=== PATIENT | male | born 1955 | race Caucasian/White ===

== ENCOUNTER 2021-06-16 09:42 | Outpatient (RCR) | payer MEDICARE, SELFPAY | END 2021-06-16 09:45 | disposition home or self-care (01) | LOC: PT 09:42 | DX: I25.10 Atherosclerotic heart disease of native coronary artery without angina pectoris (principal); Z95.1 Presence of aortocoronary bypass graft | CPT/HCPCS: 93798 ==

== ENCOUNTER 2023-06-28 09:00 | Outpatient (RCR) | payer MEDICARE, SELFPAY | END 2023-07-13 08:03 | disposition home or self-care (01) | LOC: PT 09:00 | PROVIDERS: Visit Provider Orthopaedic Surgery | DX: M25.512 Pain in left shoulder (principal); Z96.612 Presence of left artificial shoulder joint | CPT/HCPCS: 97010; 97014; 97110; 97140; 97163; 97164; 97530; G0283 ==

== ENCOUNTER 2025-02-18 17:54 | Emergency (ER) | payer SELFPAY ==
--- OUTSIDE RECORDS SUMMARY | 2025-01-03 14:05 | XMS_ITS | Encounter Summary ---
Author Organization Healthcare Address [address] [place] [address] Care Team Providers Care Quality Coordinator Name Role Phone Frank Seth MD Primary Care Provider [phone]- [phone] Encounter Details Date Type Department Care Team (Latest Contact Info) Description 01/03/2025 2:05 PM EST - 01/03/2025 11:59 PM EST Hospital Encounter Cardiac Imaging [address] [place] [address] Pacemaker Discharge Disposition: Home or Self Care Social History Tobacco Use Types Packs/Day Years Used Date Smoking Tobacco: Every Day Cigarettes 0.5 1 Started: 02/2024 Smokeless Tobacco: Never Alcohol Use Standard Drinks/Week Comments Never 0 (1 standard drink = 0.6 oz pur e alcohol) PHQ-2 Answer Date Recorded Patient Health Questionnaire-2 Score 0 11/27/2024 Hunger Vital Sign Answer Date Recorded Within the past 12 months, y ou worried that your food would run out before you got the money to buy more. Never true 03/29/19 25 Within the past 12 months, t he food you bought just didn't last and you didn't have money to get more. Never true 03/29/2024 PRAPARE - Transportation Answer Date Re corded In the past 12 months, has l ack of transportation kept you from medical appointments or from getting medications? No 03/02 In the past 12 months, has l ack of transportation kept you from meetings, work, or from getting things needed for daily living? No 03/29/2024 PHQ-9 Answer Date Recorded Patient Health Questionnaire-9 Score 0 11/27/2024 Housing Stability Vital Sign Answer Jt e Recorded In the last 12 months, was t here a time when you were not able to pay the mortgage or rent on time? No 03/29/2024 Number of Times Moved in the Last Year Not on fi le 03/29/2024 At any time in the past 12 m [facility], were you homeless or living in a penitentiary (including now)? No 03/29/2024 Utilities Answer Date Recorded In the past 12 months has [employer], [employer], [employer], or water [employer] threatened to shut off services in your home? No 03/29/2024 Sex and Gender Information Value Date Recorded Sex Assigned at Male 03/28/2024 6:50 PM EST Legal Sex Male 3:17 PM EST Gender Identity Not on file Sexual Orientation Not on file documented as of this encounter Medications at Time of Discharge aspirin 81 MG EC tablet Take 1 tablet by mouth daily. atorvastatin (Lipitor) 40 MG tablet Take 1 tablet (40 mg) by mouth every night. 30 tablet 2 03/31/2024 B-D 3CC LUER-JAMES SYR 23GX1 23G X 1 3 ML misc USE DIRECTED PER MD INSTRUCTION 12/27/2023 diclofenac (Voltaren) 75 MG EC tablet Take 1 tablet (75 mg) by mouth in the morning and 1 tablet (75 mg) before bedtime. 07/04/2023 donepezil (Aricept) 10 MG tablet Take 1 tablet (10 mg) by mouth nightly. 06/20/2023 Eliquis 5 MG tablet TAKE ONE (1) TABLET BY MOUTH TWO (2) TIMES A DAY. 180 tablet 3 05/15/2024 memantine (Namenda) 10 MG tablet Take 1 tablet (10 mg) by mouth in the morning and 1 tablet (10 mg) before bedtime. metFORMIN (Glucophage) 500 MG tablet Take 1 tablet (500 mg) by mouth in the morning and 1 tablet (500 mg) in the evening. Take with meals. 03/21/2024 metoprolol succinate XL (Toprol-XL) 25 MG 24 hr tablet Take 1 tablet by mouth daily. mirtazapine (Remeron) 15 MG tablet Take 1 tablet by mouth nightly. 09/19/2024 pantoprazole (Protonix) 40 MG EC tablet Take 1 tablet by mouth daily. 06/02/2024 sertraline (Zoloft) 100 MG tablet Take 1 tablet (100 mg) by mouth Daily. 03/21/2024 testosterone cypionate (Depo-Testostero ne) 200 MG/ML injection Inject 1 mL (200 mg) into the muscle every 14 (fourteen) days. 07/14/2023 traZODone (Desyrel) 50 MG tablet Take 2 tablets (100 mg) by mouth Daily. 06/06/2023 documented as of this encounter Plan of Treatment Upcoming Encounters Date Type Department Care Team (Late st Contact Info) Description 05/09/2025 1:00 PM EDT Consult [facility] [place] [facility] [address] [place] [id number] Cristiana Webster MD [address] [place] [phone] 11/26/2025 11:00 AM EDT Office Visit [facility] [place] [address] [place] [address] Giles Sullivan MD [address] [place] [address] documented as of this encounter Procedures Procedure Name Priority Date/Time Associated Diagnosis Comments CARDIAC DEVICE CHECK - REMOTE - PACEMAKER Routine 01/03/2025 2:33 PM EST Pacemaker documented in this encounter Results * CARDIAC DEVICE CHECK - REMOTE - PACEMAKER (01/03/2025 2:33 PM EST) Anatomical Region Laterality Modality Other Narrative 01/03/2025 3:25 PM EST [facility] Remote CIED Report Name: James Sagastume Date: 01/03/2025 : 1955 Age: 69 y.o. Viewing Cardiology Provider: James Moore APRN, DNP Reporting period: Reporting period is the last 91 days, with at least 30 days of remote monitoring. Interim reports, if any, reviewed and addressed previously; see remote alert entries for more details. Most recent report, dated 01/03/2025, analysis and summary as follows: Device: [employer] dual chamber pacemaker Permanent Programming Mode : DDDR LRL: 60 bpm MTR: 130 bpm Available measurements within normal limits. (See vendor report in Media for further details) Pacing Percentage: Atrial: 59 % Ventricular: 77 % Battery: Service time remainin years Presenting rhythm: Presenting rhythm is atrial paced with ventricular paced response with occasional ectopy. Evaluation: Demonstrates appropriate sensing: Yes Demonstrates pacing capture: Yes Arrhythmias: No new arrhythmia since last CIED evaluation. Summary: CIED functioning as expected, with given programming and data. See copy of vendor report in Media us Shagufta Menendez Oscar COFFEY CV IMPLANTABLE CARDIAC DEV ICE PROCEDURES Final Result documented in this encounter Visit Diagnoses Diagnosis Pacemaker Cardiac pacemaker in situ documented in this encounter Additional Health Concerns Assessment Noted Time PHQ-9 Depression Total Score: 0 11/28/19 11:33 AM EDT A fall risk assessment has been complete d for the patient 11/27/2024 11:33 AM EDT A Body Mass Index follow-up plan has been documented for the patient 11/27/2024 11:56 AM EDT documented as of this encounter Care Teams Quality Coordinator Relationship Specialty Start Date End Date Frank Seth MD [address] [place] [address] PCP - General 03/28/24 documented as of this encounter
--- OUTSIDE RECORDS SUMMARY | 2025-02-18 18:03 | XMS_ITS | Encounter Summary ---
Author Organization Healthcare Address [address] [place] [address] Care Team Providers Care Paper Stripper Name Role Phone Frank Seth MD Primary Care Provider [phone] Encounter Details Date Type Department Care Team (Latest Contact Info) Description 01/03/2025 Travel Social History Tobacco Use Types Packs/Day Years [...] any time in the past 12 m [facility], were you homeless or living in a usp (including now)? No 03/29/2024 Utilities Answer Date Recorded In the past 12 months has e electric, gas, oil, or water company threatened to shut off services in your home? No 03/29/2024 Sex and Gender Information Value Date Recorded Sex Assigned at Male 03/28/2024 6:50 PM EST Legal Sex Male 3:17 PM EST Gender Identity Not on file Sexual Orientation Not on file documented as of this encounter Plan of Treatment Upcoming Encounters Date Type Department Care Team (Late st Contact Info) Description 05/09/2025 1:00 PM EDT Consult [facility] [place] [facility] [address] [place] [phone] Cristiana Webster MD [address] [place] [address] 11/26/2025 11:00 AM EDT Office Visit [facility] [place] [address] [place] [address] Giles Sullivan MD [address] [place] [address] documented as of this encounter Visit Diagnoses Not on filedocumented in this encounter Additional Health Concerns Assessment Noted Time PHQ-9 Depression Total Score: 0 11/28/19 11:33 AM EDT A fall risk assessment has been complete d for the patient 11/27/2024 11:33 AM EDT A Body Mass Index follow-up plan has been documented for the patient 11/27/2024 11:56 AM EDT documented as of this encounter Care Teams Paper Stripper Relationship Specialty Start Date End Date Frank Seth MD [address] [place] [address] PCP - General 03/28/24 documented as of this encounter
--- OUTSIDE RECORDS SUMMARY | 2025-02-18 18:04 | XMS_ITS | Clinical Summary ---
Author Organization [employer] ([place], [place], [place], [place], [place]) Address [address] [place] [address] Care Team Providers Care Telecommunications Clerk Name Role Phone Frank Seth MD Primary Care Provider [phone] Allergies Active Allergy Reactions Criticality Noted Date Comments Latex 06/02/2022 Penicillins Hives,Rash High 12/01/2012 Medications memantine (NAMENDA TITRATION PACK) tablet pack Take by mouth. 03/17/19 23 Active diclofenac-mis oprostoL (ARTHROTEC 75) 75-200 mg-mcg per tablet Take 1 tablet by mouth 2 (two) times daily. Active rivaroxaban (Xarelto) 20 mg tablet Take 1 tablet (20 mg total) by mouth daily. 05/10/19 22 Active pantoprazole (Protonix) 20 MG tablet Take 2 tablets (40 mg total) by mouth daily. 05/10/19 22 Active testosterone (ANDROGEL) 20.25 mg/1.25 gram (1.62 %) gel pump Inject 200 mg intramuscularly every 14 (fourteen) days. 04/30/19 22 Active aspirin 81 MG EC tablet 1 Tab, Oral, EC Tab, Daily, # 30 Tab, 0 Refill(s), Pharmacy: [id number], 193.04, cm, 05/07/21 4:15:00 EST, CLINICALHEIGHT, 144.55, kg, 04/28/21 19:42:00 EST, CLINICALWEIGHT 05/10/19 Active carvediloL (Coreg) 12.5 MG tablet Take 0.5 tablets (6.25 mg total) by mouth 2 (two) times daily. 05/10/19 Active multivitamin with minerals tablet Take 1 tablet by mouth daily. Active atorvastatin (LIPITOR) 10 MG tablet Take 2 tablets (20 mg total) by mouth daily. 05/10/19 Active sertraline (ZOLOFT) 50 MG tablet Take 1 tablet (50 mg total) by mouth daily. 06/20/19 Active donepeziL (ARICEPT) 10 MG tablet Take 1 tablet (10 mg total) by mouth daily. 06/20/19 Active diclofenac (VOLTAREN) 75 MG EC tablet Take 1 tablet (75 mg total) by mouth 2 (two) times daily. 07/04/19 Active testosterone cypionate (DEPOTESTOTERO NE CYPIONATE) 200 mg/mL injection Inject 1 mL (200 mg total) intramuscularly once every 2 weeks. 07/14/19 Active traZODone (DESYREL) 50 MG tablet Take 2 tablets (100 mg total) by mouth daily. 06/06/19 Active Social History Tobacco Use Types Packs/Day Years Used Date Smoking Tobacco: Never Assessed Food Insecurity Answer Date Recorded Food run out past 12 months Not on file 02/28 Food did not last past 12 months Not on file 03/18/2023 Employment Answer Date Recorded Help finding and keeping a job Not on file 0 03/18/2023 Family and Community Support Answer Jt e Recorded Help with Day to Day Activities Not on file 03/18/2023 Feeling Lonely or Isolated Not on file 03/18 Educational Attainment Answer Date Chaka rded Speak language other than Macedonian at home Not on file 03/18/2023 Want help with school or training Not on file 03/18/2023 Substance Use Answer Date Recorded Used prescription meds for non-medical reasons N ot on file 03/18/2023 Used illegal drugs past 12 months Not on file 03/18/2023 Sex and Gender Information Value Date Recorded Sex Assigned at Not on file Legal Sex Male 1:23 PM CDT Gender Identity Not on file Sexual Orientation Not on file Last Filed Vital Signs Vital Sign Reading Time Taken Comments Blood Pressure 136/83 07/27/2023 2:35 PM EDT Pulse 69 07/27/2023 2:35 PM EDT Temperature 36.6 C (97.9 F) 03/18/2022 1:47 PM EST Respiratory Rate 18 07/27/2023 2:35 PM EDT Oxygen Saturation 97% 07/27/2023 2:35 PM EDT Inhaled Oxygen Concentration - - Weight 137.9 kg (304 lb) 07/27/2023 2:35 PM EDT Height 193 cm (6' 4 ) 07/27/2023 2:35 PM EDT Body Mass Index 37 07/27/2023 2:35 PM EDT Plan of Treatment Health Maintenance Due Date Last Done Comments Medicare Initial AWV G0438 CT Colonography 1955 Colonoscopy 1955 Colorectal Cancer Screening 1955 FOBT/FIT 1957 Fit-DNA (Cologuard) 1955 Sigmoidoscopy 1955 Depression Screening (12+) 1969 Tobacco Cessation Counseling and Screening (12+) 1969 Hepatitis C Screening 07/07/1975 Respiratory Syncytial Virus (RSV) Adult or (1 - Risk 60-74 years 1-dose series) 2017 DTAP/TDAP/TD VACCINES (2 - T d or Tdap) 11/30/2021 12/01/2011 Falls Risk Screening 02/29/2024 COVID-19 VACCINE (6 - 2024-2 6 season) 2024 11/10/2021, 06/26/2021, 12/04/2020, Additional history exists Influenza Vaccine (#1) 2024 11/23/2011 Shingles Vaccine (Zoster) Completed 11/04/2020, 09/2020 Pneumococcal 50+ years Completed 11/19/2021, 2011 Insurance [facility] Care Teams Telecommunications Clerk Relationship Specialty Start Date End Date Frank Seth MD [address] [place] [address] Dr Bethea [address] [place] [phone] PCP - General Family Medicine 06/02/22
--- OUTSIDE RECORDS SUMMARY | 2025-02-18 18:04 | XMS_ITS | Encounter Summary ---
Author Organization [facility] Address [address] [place] [address] Phone Care Team Providers Care Hrbp Name Role Phone Frank Seth MD Primary Care Provider [phone]- [phone] Encounter Details Date Type Department Care Team (Late st Contact Info) Description 02/08/2024 [facility] [address] [place] [address] Micah Hobson MD [address] [place] [address] Social History Tobacco Use Types Packs/Day Years Used Date Smoking Tobacco: Former Cigarettes 0 Q uit: 1980 Sex and Gender Information Value Date Recorded Sex Assigned at Not on file Legal Sex Male 10:00 AM EDT Gender Identity Not on file Sexual Orientation Not on file documented as of this encounter Functional Status * Are you deaf or do you have serious difficulty hearing? Answer Date of Assessment Author No 11/01/2023 1:55 PM EDT Gary Okeefe, Registered Nurse * Are you blind or do you have serious difficulty seeing, even when wearing glasses? Answer Date of Assessment Author No 11/01/2023 1:55 PM TALITAT Gary Okeefe, Registered Nurse * Do you have serious difficulty walking or climbing stairs? (5 years old or older) Answer Date of Assessment Author No 11/01/2023 1:55 PM Gary Silva, Registered Nurse * Do you have difficulty dressing or bathing? (5 years old or older) Answer Date of Assessment Author No 11/01/2023 1:55 PM EDT Gary Okeefe, Registered Nurse * Because of a physical, mental, or emotional condition, do you have difficulty doing errands alone such as visiting a doctor???s office or shopping? (15 years old or older) Answer Date of Assessment Author No 11/01/2023 1:55 PM EDT Gary Okeefe, Registered Nurse documented as of this encounter Mental Status * Because of a physical, mental, or emotional condition, do you have serious difficulty concentrating, remembering, or making decisions? (5 years old or older) Answer Entry Date Author No 11/01/2023 1:55 PM EDT Gary Okeefe, Registered Nurse documented in this encounter Plan of Treatment Upcoming Encounters Date Type Department Care Team (Late st Contact Info) Description 02/19/2025 8:00 PM [facility] Hospital Encounter [facility] [address] [place] [address] Beverley Quintana MD [address] [place] [address] documented as of this encounter Visit Diagnoses Not on filedocumented in this encounter Care Teams Hrbp Relationship Specialty Start Date End Date Frank Seth MD PCP - General Family Medicine 12/25/18 documented as of this encounter
--- OUTSIDE RECORDS SUMMARY | 2025-02-18 18:04 | XMS_ITS | Clinical Summary ---
Author Organization [facility] Address [address], [address] [place] [address] Care Team Providers Care Surgical Technician Name Role Phone Frank Seth MD Primary Care Provider Sumit kaur Allergies Active Allergy Reactions Criticality Noted Date Comments Penicillins Rash Low 12/01/2012 Medications diclofenac (VOLTAREN) 75 MG EC tablet daily 09/29/2018 Active Multiple Vitamins-Mineral s (THERAPEUTIC MULTIVITAMIN-MIN ERALS) tablet Take 1 tablet by mouth daily Active aspirin 325 MG EC tablet Take 1 tablet by mouth daily 30 tablet 04/24/2019 Active Active Problems Problem Noted Date Diagnosed Date H/O total ankle replacement, 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, 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 Pain in joint, pelvic region and thigh 3 Immunizations Immunization Administration Dates Next Due Influenza Virus Vaccine 12/14/2018,11/28/2012 Pneumococcal Conjugate 7-valent (Prevnar7) 11/28 Social History Tobacco Use Types Packs/Day Years Used Date Smoking Tobacco: Former Cigarettes 2 10 Smokeless Tobacco: Never Tobacco Cessation:Counseling Given: No Alcohol Use Standard Drinks/Week Comments No 0 (1 standard drink = 0.6 oz pur e alcohol) Sex and Gender Information Value Date Recorded Sex Assigned at Not on file Legal Sex Male 4:24 AM EST Gender Identity Not on file Sexual Orientation Not on file Last Filed Vital Signs Vital Sign Reading Time Taken Comments Blood Pressure 138/88 04/24/2019 1:32 PM EST Pulse 80 04/24/2019 1:32 PM EST Temperature 36.4 C (97.6 F) 04/24/2019 1:32 PM EST Respiratory Rate 16 04/24/2019 1:32 PM EST Oxygen Saturation 96% 04/24/2019 1:32 PM EST Inhaled Oxygen Concentration - - Weight 135.6 kg (299 lb) 11/06/2019 10:51 AM EDT Height 190.5 cm (6' 3 ) 11/06/2019 10:51 AM EDT Body Mass Index 37.37 11/06/2019 10:51 AM EDT Plan of Treatment Not on file Medical Devices Implanted Type Area Binder And Wrapper Packer Device Identifier Shelf Expiration Date Model / Serial / Lot Graft Amnio Actishield 4x8cm Implanted:Qty: 1 on 04/23/2019 by Chuck Verma MD at [facility] Bone/Gra ft/Tissu e/Human/ Synth Right: [facility] [employer] 09/08/2023 [id number] / / [id number] Impl In Bone Talar Stem 10mm Lg Implanted:Qty: 1 on 04/23/2019 by Chuck Verma MD at [facility] Leg/Ankl e/Foot/T oe Right: Ankle [employer] 09/26/[id number] / / [id number] Impl Ankle Base Stem Tib 18mm Implanted:Qty: 1 on 04/23/2019 by Chuck Verma MD at [facility] Leg/Ankl e/Foot/T oe Right: Ankle [employer] 01/20/[id number] / / [id number] Impl Ankle Stem Tib Mid 16mm Implanted:Qty: 1 on 04/23/2019 by Chuck Verma MD at [facility] Leg/Ankl e/Foot/T oe Right: Ankle [employer] 02/23/[id number] / / [id number] Impl Ankle Stem Tib Top Implanted:Qty: 1 on 04/23/2019 by Chuck Verma MD at [facility] Leg/Ankl e/Foot/T oe Right: Ankle [employer] 02/25/[id number] / / [id number] Inbone Tibial Tray, Size:5 Side: Right, Implant Material: [id number], Cpti Implanted:Qty: 1 on 04/23/2019 by Chuck Verma MD at [facility] Leg/Ankl e/Foot/T oe Right: Ankle [employer] 05/28/2021 [id number] / / [id number] Impl Ankle Talar Dome Sz4 Implanted:Qty: 1 on 04/23/2019 by Chuck Verma MD at [facility] Leg/Ankl e/Foot/T oe Right: Ankle [employer]-PMM 05/14/2026 [id number] / / [id number] Impl Ankle Poly Sz 4+ 12mm Sulcus Implanted:Qty: 1 on 04/23/2019 by Chuck Verma MD at [facility] Leg/Ankl e/Foot/T oe Right: Ankle [employer]-PMM 09/27/2021 [id number] / / [id number] Explanted Type Area Binder And Wrapper Packer Device Identifier Shelf Expiration Date Model / Serial / Lot Impl Kwire 1.4 Explanted:Qty: 2 on 04/23/2019 by Chuck Verma MD at [facility] Screw/Pl ate/Nail /Jayy Right: Ankle [employer]-PMM [id number] / / Insurance MEDICARE Advance Directives * Full Code (Latest Code Status on File) Date Activated Date Inactivated Comments 04/23/2019 1:03 PM 04/24/2019 5:43 PM * Full Code Date Activated Date Inactivated Comments 04/23/2019 5:59 AM 04/23/2019 12:40 PM * Full Code Date Activated Date Inactivated Comments 12/12/2012 11:33 AM 12/13/2012 1:06 PM Care Teams Surgical Technician Relationship Specialty Start Date End Date Frank Seth MD PCP - General Family Medicine 03/29/19
--- OUTSIDE RECORDS SUMMARY | 2025-02-18 18:04 | XMS_ITS | Encounter Summary ---
Author Organization [facility] Address [address] [address] Care Team Providers Care [employer] Name Role Phone Frank Seth MD Primary Care Provider [phone] Reason for Referral * Consultation (Routine) - Authorized Specialty Diagnoses / Procedures Referred By Lane coffman Referred To Contact Neurology Diagnoses Memory impairment Frank Seth MD [address] [place] [address] Phone: tel: fax: Referral ID Status Reason Start Date Expiration Date Visits Requested Visits Authorized [id number] Authorized Specialty Services Required 09/19/2024 03/21/2026 1 1 Encounter Details Date Type Department Care Team (Late st Contact Info) Description 09/19/2024 Community [facility] [address] [place] [address] Frank Seth MD [address] [place] [phone] Memory impairment (Primary Dx) Social History Tobacco Use Types Packs/Day Years Used Date Smoking Tobacco: Every Day Cigarettes 0.5 1 Started: 02/2024 Smokeless Tobacco: Never Alcohol Use Standard Drinks/Week Comments Never 0 (1 standard drink = 0.6 oz pur e alcohol) Hunger Vital Sign Answer Date Recorded Within [...] things needed for daily living? No 03/29/2024 Housing Stability Vital Sign Answer Jt e Recorded In the last 12 months, was t here a time when you were not able to pay the mortgage or rent on time? No 03/29/2024 Number of Times Moved in the Last Year Not on fi le 03/29/2024 At any time in the past 12 m [facility], were you homeless or living in a fdc (including now)? No 03/29/2024 Utilities Answer Date Recorded In the past 12 months has th e electric, gas, oil, or water company [...] Info) Description 05/09/2025 1:00 PM EDT Consult [facility] [place] [facility] [address] [place] [id number] Cristiana Webster MD [address] [facility] [address] [phone] 11/26/2025 11:00 AM EDT Office Visit [facility] [place] [address] [facility] [address] Giles Sullivan MD [address] [place] [phone] Scheduled Referrals Name Type Priority Associated Diagnoses Order Schedule Ambulatory referral to Neurology Outpatient Referral Routine Memory impairment Ordered: 09/19/2024 documented as of this encounter Visit Diagnoses Diagnosis Memory impairment- Primary Memory loss documented in this encounter Additional Health Concerns Assessment Noted Time A fall risk assessment has been complete d for the patient 07/10/2024 1:33 PM EDT A Body Mass Index follow-up plan has been documented for the patient 07/10/2024 2:04 PM EDT documented as of this encounter Care Teams [employer] Relationship Specialty Start Date End Date Frank Seth MD [address] [place] [address] PCP - General 03/28/24 documented as of this encounter
--- OUTSIDE RECORDS SUMMARY | 2025-02-18 18:04 | XMS_ITS | Encounter Summary ---
Author Organization [facility] Address [address] [place] [address] Phone Care Team Providers Care Prescription Benefit Specialist Name Role Phone Frank Seth MD Primary Care Provider [phone]- [phone] Encounter Details Date Type Department Care Team (Late st Contact Info) Description 11/03/2023 SCAN [facility] [address] [place] [address] Micah Hobson MD [address] [place] [address] Social History Tobacco Use Types [...] st Contact Info) Description 02/19/2025 8:00 PM [facility] Hospital Encounter [facility] [address] [place] [address] Beverley Quintana MD [address] [address] documented as of this encounter Visit Diagnoses Not on filedocumented in this encounter Care Teams Prescription Benefit Specialist Relationship Specialty Start Date End Date Frank Seth MD PCP - General Family Medicine 12/25/18 documented as of this encounter
--- OUTSIDE RECORDS SUMMARY | 2025-02-18 18:04 | XMS_ITS | Encounter Summary ---
Author Organization [facility] Address [facility] [place] [address] Phone Care Team Providers Care Process Lead Name Role Phone Frank Seth MD Primary Care Provider [phone]- [phone] Reason for Visit * Reason Onset Date Comments Pre-questionnaire Sleep Study 10/30/2024 Encounter Details Date Type Department Care Team (Late st Contact Info) Description 10/30/2024 Telephone [facility] [address] [place] [phone] Beverley Quintana MD [address] [address] Social History Tobacco Use Types Packs/Day Years Used Date Smoking Tobacco: Former Cigarettes 0 Q uit: 1982 Alcohol Use Standard Drinks/Week Comments Not Currently 0 (1 standard drink = 0.6 oz pur e alcohol) Sex and Gender Information Value Date Recorded Sex Assigned at Not on file Legal Sex Male 10:00 AM EDT Gender Identity Not on file Sexual Orientation Not on file documented as of this encounter Functional Status * Are you deaf or do you have serious difficulty hearing? Answer Date of Assessment Author No 06/18/2024 1:09 PM [place], Registered Nurse * Are you blind or do you have serious difficulty seeing, even when wearing glasses? Answer Date of Assessment Author No 06/18/2024 1:09 PM [place] Locke, Registered Nurse * Do you have serious difficulty walking or climbing stairs? (5 years old or older) Answer Date of Assessment Author No 06/18/2024 1:09 PM [place], Registered Nurse * Do you have difficulty dressing or bathing? (5 years old or older) Answer Date of Assessment Author No 06/18/2024 1:09 PM [place] Locke, Registered Nurse * Because of a physical, mental, or emotional condition, do you have difficulty doing errands alone such as visiting a doctor???s office or shopping? (15 years old or older) Answer Date of Assessment Author No 06/18/2024 1:09 PM [place] Locke, Registered Nurse documented as of this encounter Mental Status * Because of a physical, mental, or emotional condition, do you have serious difficulty concentrating, remembering, or making decisions? 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 Departure Time: Duration: ____ hrs. Language: [] ASL (Rwandan Sign Language) Interventional Nurse Type: [] Family [] *Service [] Video [] Phone [] In-person [x] N/A Patient has impaired: [] Mobility / Dexterity: [] Cane [] Crutches [] Walker [] Wheelchair [] Motorized Scooter [x] N/A [] Ability to communicate: [] [facility] Other: Caregiver staying: [] Bedridden [] Blindness [] Deafness [] Non-Verbal [] Altered Mental Status: Psychosis/Schizophrenia/Dementia/Alzheimer's [] Trach [] Catheter [] Other: [] Family Member [] Nurse/Facility Staff Name: Number: [x] N/A Non-caregiver staying: [] Family Member [] Nurse/Facility Staff Name: Number: [x] N/A On Oxygen: LPM [] 20/09 [] Nocturnal Only [] PRN [x] N/A Implanted Device: [x] Inspire (North Only) Sun - Yajaira. [] Remede Rep: Number: [] Pacemaker/IVCD [] Loop/Cardiac Recorder [] Insulin Pump [] Pain Pump [] ELECTRICIAN RESEARCH Shunt (located in head & neck) Other: [x] N/A documented in this encounter Plan of Treatment Upcoming Encounters Date Type Department Care Team (Late st Contact Info) Description 02/19/2025 8:00 PM [facility] Hospital Encounter [facility] [address] [place] [phone] Beverley Quintana MD [address] [place] [address] documented as of this encounter Visit Diagnoses Not on filedocumented in this encounter Care Teams Process Lead Relationship Specialty Start Date End Date Frank Seth MD PCP - General Family Medicine 12/25/18 documented as of this encounter
--- OUTSIDE RECORDS SUMMARY | 2025-02-18 18:04 | XMS_ITS | Clinical Summary ---
Author Organization [facility] Address [address] [place] [address] Care Team Providers Care Guide Changer Name Role Phone Frank Seth MD Primary Care Provider Allergies Active Allergy Reactions Criticality Noted Date Comments Latex Rash High 06/02/2022 Penicillins Hives,Rash High 12/01/2012 Medications testosterone cypionate (Depo-Testoster one) 200 MG/ML injection Inject 1 mL (200 mg) into the muscle every 14 (fourteen) days. 4 Active metFORMIN (Glucophage) 500 MG tablet Take 1 tablet (500 mg) by mouth in the morning and 1 tablet (500 mg) in the evening. Take with meals. 5 Active sertraline (Zoloft) 100 MG tablet Take 1 tablet (100 mg) by mouth Daily. 5 Active traZODone (Desyrel) 50 MG tablet Take 2 tablets (100 mg) by mouth Daily. 4 Active donepezil (Aricept) 10 MG tablet Take 1 tablet (10 mg) by mouth nightly. 4 Active diclofenac (Voltaren) 75 MG EC tablet Take 1 tablet (75 mg) by mouth in the morning and 1 tablet (75 mg) before bedtime. 4 Active memantine (Namenda) 10 MG tablet Take 1 tablet (10 mg) by mouth in the morning and 1 tablet (10 mg) before bedtime. Active B-D 3CC LUER-JAMES SYR 23GX1 23G X 1 3 ML misc USE DIRECTED PER MD INSTRUCTION 4 Active atorvastatin (Lipitor) 40 MG tablet Take 1 tablet (40 mg) by mouth every night. 30 tablet 2 5 Active Eliquis 5 MG tablet TAKE ONE (1) TABLET BY MOUTH TWO (2) TIMES A DAY. 180 tablet 3 5 Active pantoprazole (Protonix) 40 MG EC tablet Take 1 tablet by mouth daily. 5 Active aspirin 81 MG EC tablet Take 1 tablet by mouth daily. Active metoprolol succinate XL (Toprol-XL) 25 MG 24 hr tablet Take 1 tablet by mouth daily. Active mirtazapine (Remeron) 15 MG tablet Take 1 tablet by mouth nightly. 5 Active Active Problems Problem Noted Date Diagnosed Date Pacemaker 07/10/2024 Unstable angina pectoris 06/26/2024 Encounter for monitoring sotalol therapy 025 Atrial flutter, unspecified type 05/11/2024 Atrial flutter 05/07/2024 Bradycardia 03/28/2024 Atrial fibrillation 03/21/2024 Hypotestosteronism 03/21/2024 Sensorineural hearing loss 07/12/2023 Localized osteoarthritis of left shoulder 2023 Prediabetes 10/25/2022 Memory impairment 01/25/2022 Acid reflux 12/25/2021 Coronary arteriosclerosis 05/14/2021 Bladder neck contracture 05/01/2021 Athscl heart disease of ayaan ve coronary artery w/o ang pctrs 05/01/2021 History of coronary artery bypass surgery 2021 Presence of prosthetic heart valve 05/01/2021 Rheumatic mitral insufficiency 05/01/2021 Acute pain of right shoulder 03/26/2021 Strain of right shoulder 03/26/2021 Obstructive sleep apnea syndrome 02/28/2021 Decreased testosterone level 06/05/2020 Sleep apnea 11/22/2019 H/O total ankle replacement, 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, right 04/23/2019 Degeneration of lumbosacral intervertebral disc 04/01/2016 Diabetic polyneuropathy 04/01/2016 Overview (06/26/2024): Removal Reason: resolved Essential hypertension 04/01/2016 Overview (06/26/2024): Removal Reason: resolved Gastroesophageal reflux disease without esophagi tis 04/01/2016 Hyperlipidemia 04/01/2016 Overview (06/26/2024): Removal Reason: resolved Obesity 04/01/2016 Osteoarthritis 04/01/2016 Type 2 diabetes mellitus 04/01/2016 Overview (06/26/2024): Removal Reason: resolved Failed total hip arthroplasty 12/01/2012 Pain in joint, pelvic region and thigh 3 Encounters Date Type Department Care Team Description 01/03/2025 2:05 PM EST - 01/03/2025 11:59 PM EST Hospital Encounter Cardiac Imaging [address] [place] [address] Pacemaker Discharge Disposition: Home or Self Care 01/03/2025 Travel 11/27/2024 11:20 AM EDT Office Visit [facility] [address] [place] [address] Giles Sullivan MD Paroxysmal atrial fibrillation (CMS/HCC) (Primary Dx); Sick sinus syndrome (CMS/HCC) 11/27/2024 Travel from Last 3 Months Immunizations Immunization Administration Dates Next Due Influenza, High-dose, Split Virus, Trivalent, Injectable, preservative free 11/09/2023 Influenza, Split (incl. brittanie fied surface antigen) 11/23/2011 Influenza, Unspecified 11/09/2023,2018,11/28/2012,11/22,11/24/2010,11/27/2009,12/06/2008 ,01/17/2008 Influenza, high-dose, quadrivalent 12/23/2022, Influenza, injectable, quadrivalent 11/22/2019 Influenza, injectable, quadr ivalent, preservative free 11/19/2021 Novel [id number], all formulations 06/04/2009 Pneumococcal 20-izaiah Conj Vaccine 11/09/2023,0903/2021 Pneumococcal Conjugate PCV 13 12/04/2014 Pneumococcal Conjugate PCV 7 11/29/2011 Pneumococcal Polysaccharide PPV23 12/01/2011 Tdap 10/22/2016,12/01/2011 Zoster, Recombinant 11/04/2020,09/04/2020 Zoster, live 12/04/2010 Social History Tobacco Use Types Packs/Day Years Used Date Smoking Tobacco: Every Day Cigarettes 0.5 1 Started: 02/2024 Smokeless Tobacco: Never Tobacco Cessation:Ready to Q uit: Not Asked; Counseling Given: Not Answered Alcohol Use Standard Drinks/Week Comments Never 0 [...] any time in the past 12 m [facility], were you homeless or living in a residential (including now)? No 03/29/2024 Utilities Answer Date [...] Sign Reading Time Taken Comments Blood Pressure 128/85 11/27/2024 11:29 AM EDT Pulse 60 11/27/2024 11:29 AM EDT Temperature 36.4 C (97.6 F) 05/13/2024 7:07 AM EDT Respiratory Rate 19 05/12/2024 7:14 PM EDT Oxygen Saturation 95% 11/27/2024 11:29 AM EDT Inhaled Oxygen Concentration - - Weight 129 kg (283 lb 11.7 oz) 11/27/2024 11:29 AM EDT Height 193 cm (6' 4 ) 11/27/2024 11:29 AM EDT Body Mass Index 34.54 11/27/2024 11:29 AM EDT Plan of Treatment Upcoming Encounters Date Type Department Care Team (Late st Contact Info) Description 05/09/2025 1:00 PM EDT Consult [facility] [address] [place] [phone] Cristiana Webster MD [address] [place] [phone] 11/26/2025 11:00 AM EDT Office Visit [facility] [address] [place] [address] Giles Sullivan MD [address] [place] [address] Health Maintenance Due Date Last Done Comments [facility]-Diabetes: Hemoglobin A1C 1955 [facility]-Hepatitis C Screening 1955 [facility]-Medicare Annual Wellness (AWV) 1955 [facility]-/Child/Adol SDOH Screenings 1955 Diabetes: Dental Exam 07/07/1967 [facility]- SDOH Screenings 07/07/1975 [facility]-Adult SDOH Screenings 07/07/1975 CT Colonography 2002 Colonoscopy 2002 FIT-DNA 2002 FIT 2002 FOBT 2002 Sigmoidoscopy 2002 [facility]-Colorectal Cancer Screening 2002 [facility]-RSV Vaccine: 60+ Years or (1 - Risk 50-74 years 1-dose series) 07/07/2007 [facility]-Abdominal Aortic Aneurysm (AAA) Screening 2022 [id number] Vaccine ( season) 2024 12/23/2022, 11/10/2021, 06/26/2021, Additional history exists [facility]-Depression Screening 11/27/2025 11/27/2024, 10/31 [facility]-DTaP,Tdap,and Td Vaccines (3 - Td or Tdap) 10/22/2026 10/22/2016, 12/01/2011 [facility]-Zoster Vaccines Completed 11/04/2020, 09/04/2020, 12/04/2010 [facility]-Pneumococcal Vaccine: 50+ Years Completed 11/09/2023, 11/19/2021, 12/04/2014, Additional history exists [facility]-Obesity Intervention Completed 025, 07/10/2024, 05/11/2024, Additional history exists [facility]-Influenza Vaccine Completed 01/01/2025 , 11/09/2023, 11/09/2023, Additional history exists HPV Vaccines (No Doses Required) Completed [facility]-HIB Vaccines Aged Out No longer e ligible based on patient's age to complete this topic [facility]-Hepatitis A Vaccines Aged Out No longer eligible based on patient's age to complete this topic [facility]-IPV Vaccines Aged Out No longer e ligible based on patient's age to complete this topic [facility]-Rotavirus Vaccines Aged Out No lo nger eligible based on patient's age to complete this topic Medical Devices Implanted Type Area 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 [employer] Cardiac Rhythm Management-[id number] 01/26/2026 L131 / [id number] / [id number] Envelope Tyrx Icd Large - [id number] Implanted:Qty: 1 on 03/30/2024 by Giles Sullivan MD at [facility] Medtronic Inc-[id number] 12/14/2024 [id number] / [id number] Procedures Procedure Name Priority Date/Time Associated Diagnosis Comments CARDIAC DEVICE CHECK - REMOTE - PACEMAKER Routine 01/03/2025 2:33 PM EST Pacemaker ECG ADULT Routine 11/27/2024 11:38 AM EDT Paroxysmal atrial fibrillation (CMS/HCC) from Last 3 Months Results * CARDIAC DEVICE CHECK - REMOTE - PACEMAKER (01/03/2025 2:33 PM EST) Anatomical Region Laterality Modality Other Narrative 01/03/2025 3:25 PM EST [facility] Remote CIED [...] 01/03/2025, analysis and summary as follows: Device: [employer] dual chamber pacemaker Permanent Programming Mode [...] of vendor report in Media us Shagufta Moore APRN CV IMPLANTABLE CARDIAC DEV ICE PROCEDURES Final Result * ECG Adult (Now - Performed in your clinic) (11/27/2024 11:38 AM EDT) EKG DIAGNOSIS CLASS Abnormal MUSE ECG Ventricular Rate 60 BPM MUSE ECG Atrial Rate 60 BPM MUSE ECG [place] Interval 352 ms MUSE ECG QRSD Interval 142 ms MUSE ECG QT Interval 418 ms MUSE ECG QTC Interval 418 ms MUSE ECG P [place] 81 degrees MUSE ECG R [place] -14 degrees MUSE ECG T Wave [place] -50 degrees MUSE ECG Diagnosis Sinus rhythm with 1st degree AV block with frequent atrial paced complexes MUSE ECG Diagnosis Right bundle branch block MUSE ECG Diagnosis Minimal voltage criteria for LVH, may be normal variant ( R in aVL ) MUSE ECG Diagnosis Possible Inferior infarct , age undetermined MUSE ECG Diagnosis T wave abnormality, consider lateral ischemia MUSE ECG Diagnosis Abnormal ECG MUSE ECG Diagnosis MUSE ECG Diagnosis Confirmed by Emilia Wright ([id number]) on 11/27/2024 2:07:45 PM MUSE ECG 11/27/2024 11:3 8 AM EDT 11/27/2024 2:07 PM EDT us Giles Sullivan MD ECG ORDERABLES Final Result Performing Organization Address City/State/[facility] Co de Phone Number MUSE ECG from Last 3 Months Insurance [employer] MEDIC[employer] Advance Directives * Full Code (Latest Code Status on File) Date Activated Date Inactivated Comments 05/11/2024 11:25 AM 05/13/2024 3:56 PM * Full Code Date Activated Date Inactivated Comments 03/30/2024 2:06 PM 03/31/2024 4:46 PM Question Answer Comments Patient has decision-making capacity? Yes * Full Code Date Activated Date Inactivated Comments 03/28/2024 8:38 PM 03/30/2024 2:06 PM Question Answer Comments Patient has decision-making capacity? Yes Care Teams Guide Changer Relationship Specialty Start Date End Date Frank Seth MD [address] [place] [address] PCP - General 03/28/24
--- OUTSIDE RECORDS SUMMARY | 2025-02-18 18:04 | XMS_ITS | Continuity of Care Document ---
Author Organization [facility] Former[facility] Address [address] [place] [address] [place] [address] Assessment No assessment recorded. Plan of Treatment Reminders Order Date Submit Date Provider Last Modified By Organization Details Last Modified Time Details Appointments Establish ed Patient 20 2025 11:30A M Frank Seth MD Not available Not available Not available Follow Up 20 2025 11:00A M Alayna Meneses APRN Not available Not available Not available Establish ed Patient 20 2025 10:50A M Frank Seth MD Not available Not available Not available Lab HbA1c (hemoglob in A1c), blood 2024 025 [facility], [address] [place] [address], [id number], 01/11/2025 11:14:15 CMP, serum or plasma 2024 025 [facility], [address] [place] [address], [address], 01/11/2025 11:14:13 microalbu min/creat inine, mass ratio, urine 2024 025 [facility], [address] [place] [address] [place], [address], 01/10/2025 11:58:56 unlisted lab - toxassure flex 22, urine [address], [address], 01/16/2025 20:10:50 lipid panel, serum 2024 [facility], [address] [place] [address], [address], 01/11/2025 11:14:14 CBC w/ auto diff 2024 [facility], [address] [place] [address], [address], 01/11/2025 11:14:12 TSH + free T4, serum 2024 [facility], [address] [place] [address], [address], 01/11/2025 11:14:11 testoster one, total, serum 2024 [facility], [address] [place] [address], [address], 01/11/2025 11:14:16 PSA, total, serum or plasma 2024 [facility], [address] [place] [address], [address], 01/11/2025 11:14:17 Referral None recorded. Procedures None recorded. Surgeries None recorded. Imaging None recorded. Medication Orders testoster one cypionate 200 mg/mL intramusc ular oil 2024 [facility], [address] [place] [address] [place], [address], 01/10/2025 11:38:06 Patient TargetsNo targets recorded. Patient Instructions Encounter Date Encounter Id Patient Instructions Last Modified By Organization Details Last Modified Time 01/10/2025 [id number] diabetic foot exam* mela Not available 01/10/2025 11:48:50 diabetic eye exam* APRIL Not available 02/04/2025 16:31:27 learning about healthy weight Not available 01/10/2025 11:38:01 body mass index: care instructions Not available 01/10/2025 11:38:01 Reason for Referral None Reported. Results Created Date Observation Date Name Description Value Unit Range Abnormal Flag Note LastModifiedBy Organization Detail LastModifiedTime 01/11/2001/11/2025 TSH+F REE T4 TSH 2.650 uIU/m L 0.450- 4.500 normal Not Available [facility] ([facility] [place] [facility]) [address] [facility], [place], [address], 01/11/2025 11:14:11 01/11/20 25 01/11/2025 TSH+F REE T4 T4,free(dire ct) 1.29 NG/dL 0.82-1 .77 normal Not Available [facility] ([facility]) [address] [place], [address], 01/11/2025 11:14:11 01/11/20 25 01/11/2025 CBC WITH DIFFE RENTI AL/PL ATELE T WBC 4.4 x10e3 /uL 3.4-10 .8 normal Not Available [facility] ([facility]) [address] [place], [address], 01/11/2025 11:14:12 01/11/20 25 01/11/2025 CBC WITH DIFFE RENTI AL/PL ATELE T RBC 4.29 x10e6 /uL 4.14-5 .80 normal Not Available [facility] ([facility]) [address] [place], [address], 01/11/2025 11:14:12 01/11/20 25 01/11/2025 CBC WITH DIFFE RENTI AL/PL ATELE T hemoglobin 13.2 g/dL 13.0-1 7.7 normal Not Available [facility] ([facility]) [address] [place], [address], 01/11/2025 11:14:12 01/11/20 25 01/11/2025 CBC WITH DIFFE RENTI AL/PL ATELE T hematocrit 40.2 % 37.5-5 1.0 normal Not Available [facility] ([facility]) [address] [place], [address], 01/11/2025 11:14:12 01/11/20 25 01/11/2025 CBC WITH DIFFE RENTI AL/PL ATELE T MCV 94 fL 79-97 normal Not Available [facility] ([facility]) [address] [facility], [place], [address], 01/11/2025 11:14:12 01/11/20 25 01/11/2025 CBC WITH DIFFE RENTI AL/PL ATELE T MCH 30.8 pg 26.6-3 3.0 normal Not Available [facility] ([facility]) [address] [facility], [place], [address], 01/11/2025 11:14:12 01/11/20 25 01/11/2025 CBC WITH DIFFE RENTI AL/PL ATELE T MCHC 32.8 g/dL 31.5-3 5.7 normal Not Available [facility] ([facility]) [address] [place], [address], 01/11/2025 11:14:12 01/11/20 25 01/11/2025 CBC WITH DIFFE RENTI AL/PL ATELE T RDW 13.1 % 11.6-1 5.4 Not Available [facility] ([facility]) [address] [place], [address], 01/11/2025 11:14:12 01/11/20 25 01/11/2025 CBC WITH DIFFE RENTI AL/PL ATELE T platelets 140 x10e3 /uL 150-45 0 below low normal Not Available [facility] ([facility]) [address] [place], [address], 01/11/2025 11:14:12 01/11/20 25 01/11/2025 CBC WITH DIFFE RENTI AL/PL ATELE T neutrophils 60 % not estab. normal Not Available [facility] ([facility]) [address] [facility], [place], [address], 01/11/2025 11:14:12 01/11/20 25 01/11/2025 CBC WITH DIFFE RENTI AL/PL ATELE T lymphs 28 % not estab. normal Not Available [facility] ([facility]) [address] [facility], [place], [address], 01/11/2025 11:14:12 01/11/20 25 01/11/2025 CBC WITH DIFFE RENTI AL/PL ATELE T monocytes 8 % not estab. normal Not Available [facility] ([facility]) [address] [facility], [place], [address], 01/11/2025 11:14:12 01/11/20 25 01/11/2025 CBC WITH DIFFE RENTI AL/PL ATELE T eos 3 % not estab. normal Not Available [facility] ([facility]) [address] [facility], [place], [address], 01/11/2025 11:14:12 01/11/20 25 01/11/2025 CBC WITH DIFFE RENTI AL/PL ATELE T basos 1 % not estab. normal Not Available [facility] ([facility]) [address] [place], [address], 01/11/2025 11:14:12 01/11/20 25 01/11/2025 CBC WITH DIFFE RENTI AL/PL ATELE T immature cells RN MDS Not Available [facility] ([facility]) [address] [place], [address], 01/11/2025 11:14:12 01/11/20 25 01/11/2025 CBC WITH DIFFE RENTI AL/PL ATELE T neutrophils (absolute) 2.7 x10e3 /uL 1.4-7. 0 normal Not Available [facility] ([facility]) [address] [place], [address], 01/11/2025 11:14:12 01/11/20 25 01/11/2025 CBC WITH DIFFE RENTI AL/PL ATELE T lymphs (absolute) 1.2 x10e3 /uL 0.7-3. 1 normal Not Available [facility] ([facility]) [address] [facility], [place], [address], 01/11/2025 11:14:12 01/11/20 25 01/11/2025 CBC WITH DIFFE RENTI AL/PL ATELE T monocytes(ab solute) 0.3 x10e3 /uL 0.1-0. 9 normal Not Available [facility] ([facility]) [address] [facility], [place], [address], 01/11/2025 11:14:12 01/11/20 25 01/11/2025 CBC WITH DIFFE RENTI AL/PL ATELE T eos (absolute) 0.1 x10e3 /uL 0.0-0. 4 normal Not Available [facility] ([facility]) [address] [place], [address], 01/11/2025 11:14:12 01/11/20 25 01/11/2025 CBC WITH DIFFE RENTI AL/PL ATELE T baso (absolute) 0.0 x10e3 /uL 0.0-0. 2 normal Not Available [facility] ([facility]) [address] [facility], [place], [address], 01/11/2025 11:14:12 01/11/20 25 01/11/2025 CBC WITH DIFFE RENTI AL/PL ATELE T immature granulocytes 0 % not estab. Not Available [facility] ([facility]) [address] [place], [address], 01/11/2025 11:14:12 01/11/20 25 01/11/2025 CBC WITH DIFFE RENTI AL/PL ATELE T immature grans (abs) 0.0 x10e3 /uL 0.0-0. 1 Not Available [facility] ([facility]) [address], [place], [address], 01/11/2025 11:14:12 01/11/20 25 01/11/2025 CBC WITH DIFFE RENTI AL/PL ATELE T NRBC RN MDS Not Available [facility] ([facility]) [address], [place], [address], 01/11/2025 11:14:12 01/11/20 25 01/11/2025 CBC WITH DIFFE RENTI AL/PL ATELE T hematology comments: RN MDS Not Available [facility] ([facility]) [address], [place], [address], 01/11/2025 11:14:12 01/11/20 25 01/11/2025 COMP. METAB OLIC PANEL (14) glucose 152 mg/dL 70-99 above high normal Not Available [facility] ([facility]) [address], [place], [address], 01/11/2025 11:14:13 01/11/20 25 01/11/2025 COMP. METAB OLIC PANEL (14) BUN 14 mg/dL 8-27 normal Not Available [facility] ([facility]) [address] [facility] [place], [address], 01/11/2025 11:14:13 01/11/20 25 01/11/2025 COMP. METAB OLIC PANEL (14) creatinine 1.29 mg/dL 0.76-1 .27 above high normal Not Available [facility] ([facility]) [address] [facility] [place], [id number], 01/11/2025 11:14:13 01/11/20 25 01/11/2025 COMP. METAB OLIC PANEL (14) eGFR 61 mL/mi n/1.7 3 >59 normal Not Available [facility] ([facility]) [address] [place], [address], 01/11/2025 11:14:13 01/11/20 25 01/11/2025 COMP. METAB OLIC PANEL (14) BUN/creatini ne ratio 11 10-24 normal Not Available [facility] ([facility]) [address] [facility], [place], [address], 01/11/2025 11:14:13 01/11/20 25 01/11/2025 COMP. METAB OLIC PANEL (14) sodium 140 mmol/ L 134-14 4 normal Not Available [facility] ([facility]) [address] [facility], [place], [address], 01/11/2025 11:14:13 01/11/20 25 01/11/2025 COMP. METAB OLIC PANEL (14) potassium 5.3 mmol/ L 3.5-5. 2 above high normal Not Available [facility] ([facility]) [address] [facility], [place], [address], 01/11/2025 11:14:13 01/11/20 25 01/11/2025 COMP. METAB OLIC PANEL (14) chloride 106 mmol/ L 96-106 normal Not Available [facility] ([facility]) [address] [facility], [place], [address], 01/11/2025 11:14:13 01/11/20 25 01/11/2025 COMP. METAB OLIC PANEL (14) carbon dioxide, total 20 mmol/ L 20-29 normal Not Available [facility] ([facility]) [address] [facility], [place], [address], 01/11/2025 11:14:13 01/11/20 25 01/11/2025 COMP. METAB OLIC PANEL (14) calcium 9.2 mg/dL 8.6-10 .2 normal Not Available [facility] ([facility]) [address] [facility], [place], [address], 01/11/2025 11:14:13 01/11/20 25 01/11/2025 COMP. METAB OLIC PANEL (14) protein, total 7.0 g/dL 6.0-8. 5 normal Not Available [facility] ([facility]) [address] [facility] [place], [address], 01/11/2025 11:14:13 01/11/20 25 01/11/2025 COMP. METAB OLIC PANEL (14) albumin 4.6 g/dL 3.9-4. 9 normal Not Available [facility] ([facility]) [address] [facility] [place], [address], 01/11/2025 11:14:13 01/11/20 25 01/11/2025 COMP. METAB OLIC PANEL (14) globulin, total 2.4 g/dL 1.5-4. 5 Not Available [facility] ([facility]) [address] [facility] [place], [address], 01/11/2025 11:14:13 01/11/20 25 01/11/2025 COMP. METAB OLIC PANEL (14) bilirubin, total 0.6 mg/dL 0.0-1. 2 normal Not Available [facility] ([facility]) [address] [facility] [place], [address], 01/11/2025 11:14:13 01/11/20 25 01/11/2025 COMP. METAB OLIC PANEL (14) alkaline phosphatase 128 IU/L 47-123 above high normal Not Available [facility] ([facility]) [address] [facility] [place], [address], 01/11/2025 11:14:13 01/11/20 25 01/11/2025 COMP. METAB OLIC PANEL (14) AST (SGOT) 31 IU/L 0-40 normal Not Available [facility] ([facility]) [address] [facility] [place], [address], 01/11/2025 11:14:13 01/11/20 25 01/11/2025 COMP. METAB OLIC PANEL (14) ALT (SGPT) 25 IU/L 0-44 normal Not Available [facility] ([facility]) [address] [facility], [place], [address], 01/11/2025 11:14:13 01/11/20 25 01/11/2025 LIPID PANEL cholesterol, total 120 mg/dL 100-19 9 normal Not Available [facility] ([facility]) [address] [place], [address], 01/11/2025 11:14:14 01/11/20 25 01/11/2025 LIPID PANEL triglyceride s 193 mg/dL 0-149 above high normal Not Available [facility] ([facility]) [address] [place], [address], 01/11/2025 11:14:14 01/11/20 25 01/11/2025 LIPID PANEL HDL cholesterol 38 mg/dL >39 below low normal Not Available [facility] ([facility]) [address] [place], [address], 01/11/2025 11:14:14 01/11/20 25 01/11/2025 LIPID PANEL VLDL cholesterol orly 32 mg/dL 5-40 Not Available [facility] ([facility]) [address] [place], [address], 01/11/2025 11:14:14 01/11/20 25 01/11/2025 LIPID PANEL LDL chol calc ([facility]) 50 mg/dL 0-99 Not Available [facility] ([facility]) [address] [place], [address], 01/11/2025 11:14:14 01/11/20 25 01/11/2025 LIPID PANEL LDL calc comment: RN MDS Not Available [facility] ([facility]) [address] [place], [address], 01/11/2025 11:14:14 01/11/20 25 01/11/2025 HEMOG LOBIN A1C hemoglobin A1C 7.2 % 4.8-5. 6 above high normal Predi abete s: 5.7 - 6.4 Diabe laron: >6.4 Glyce ruth ann contr ol for adult s with diabe laron: <7.0 Not Available [facility] ([facility]) [address] [facility], [place], [address], 01/11/2025 11:14:15 01/11/20 25 01/11/2025 TESTO STERO NE testosterone 531 NG/dL 264-91 6 normal Adult male refer ence inter izaiah is based on a popul ation of healt hy nonob eugenia males (BMI <30) betwe en 19 and 39 years old. Karol davison, et.al . JCEM 2017, 102;1 161-1 173. PMID: 00891 103. Not Available [facility] ([facility]) [address] [facility], [place], [address], 01/11/2025 11:14:16 01/11/20 25 01/11/2025 PROST ATE-S PECIF IC AG prostate specific Ag 0.4 NG/mL 0.0-4. 0 normal Deuce ECLIA metho dolog y. Accor ding to the Ameri can [employer] g[employer] iatio n, Serum PSA shoul d decre ase and remai n at undet ectab le level s after radic al prost atect debbie. The AUA defin es bioch emica l recur rence as an initi al PSA value 0.2 ng/mL or great er follo wed by a subse quent confi rmato ry PSA value 0.2 ng/mL or great er. Value s obtai anupam with diffe rent assay metho ds or kits canno t be used inter kaba eably . Resul ts canno t be inter prete d as absol [place] evide nce of the prese nce or absen ce of mika reyes se. Not Available [facility] ([facility]) [address] [facility], [place], [address], 01/11/2025 11:14:17 01/11/20 25 01/16/2025 TOXAS SURE FLEX 22, URINE summary report FINAL ===== ===== ===== ===== ===== ===== ===== ===== ===== ===== ===== ===== ===== === Amphe tamin es, MS, Ur RFX Kimberley ol Bioma rkers , MS, Ur RFX Opiat e Class , MS, Ur RFX Oxyco done Class , MS, Ur RFX Metha done, MS, Ur RFX Verito turat es, MS, Ur RFX Phenc yclid ine, MS, Ur RFX Gabap entin , MS, Ur RFX Aceta minop hen, MS, Ur RFX ToxAs sure Flex 22, Urine ===== ===== ===== ===== ===== ===== ===== ===== ===== ===== ===== ===== ===== === Test Resul t Flag Units Drug Prese nt Aceta minop hen PRESE NT ===== ===== ===== ===== ===== ===== ===== ===== ===== ===== ===== ===== ===== === Test Resul t Flag Units Ref Range Creat inine 548 mg/dL >=20 ===== ===== ===== ===== ===== ===== ===== ===== ===== ===== ===== ===== ===== === Decla red Medic ation s: Medic ation list was not provi ded. ===== ===== ===== ===== ===== ===== ===== ===== ===== ===== ===== ===== ===== === For clini orly consu ltati on, pleas e call [phone]. ===== ===== ===== ===== ===== ===== ===== ===== ===== ===== ===== ===== ===== === Not Available [facility] ([facility]) [address] [place], [address], 01/16/2025 20:10:50 01/11/20 25 01/16/2025 TOXAS SURE FLEX 22, URINE pdf . Not Available [facility] ([facility]) [address] [place], [address], 01/16/2025 20:10:50 01/11/20 25 01/16/2025 TOXAS SURE FLEX 22, URINE creatinine 548 mg/dL >=20 REFER ENCE RANGE : Ref Range >=20 Not Available [facility] ([facility]) [address] [place], [address], 01/16/2025 20:10:50 01/11/20 25 01/16/2025 TOXAS SURE FLEX 22, URINE amphetamines ia COMMEN T NG/mL cutoff :300 Furth er testi ng indic ated Not Available [facility] ([facility]) [address] [place], [address], 01/16/2025 20:10:50 01/11/20 25 01/16/2025 TOXAS SURE FLEX 22, URINE benzodiazepi rosie Negati ve Not Available [facility] ([facility]) [address] [place], [address], 01/16/2025 20:10:50 01/11/20 25 01/16/2025 TOXAS SURE FLEX 22, URINE diazepam Not Detect ed NG/mg _crea t Not Available [facility] ([facility]) [address] [place], [address], 01/16/2025 20:10:50 01/11/20 25 01/16/2025 TOXAS SURE FLEX 22, URINE desmethyldia zepam Not Detect ed NG/mg _crea t Not Available [facility] ([facility]) [address] [place], [address], 01/16/2025 20:10:50 01/11/20 25 01/16/2025 TOXAS SURE FLEX 22, URINE oxazepam Not Detect ed NG/mg _crea t Not Available [facility] ([facility]) [address] [facility], [place], [address], 01/16/2025 20:10:50 01/11/20 25 01/16/2025 TOXAS SURE FLEX 22, URINE temazepam Not Detect ed NG/mg _crea t Expec marlene metab olism of benzo diaze pine class drugs : Paren t Drug Detec marlene Metab olite s ----- ----- - ----- ----- ----- ----- Diaze jessica: Desme thyld iazep am, Temaz epam, Oxaze jessica Chlor diaze poxid e: Desme thyld iazep am, Oxaze jessica Clora zepat e: Desme thyld iazep am, Oxaze jessica Halaz epam: Desme thyld iazep am, Oxaze jessica Temaz epam: Oxaze jessica Oxaze jessica: None Not Available [facility] ([facility]) [address] [facility], [place], [address], 01/16/2025 20:10:50 01/11/20 25 01/16/2025 TOXAS SURE FLEX 22, URINE alprazolam Not Detect ed NG/mg _crea t Not Available [facility] ([facility]) [address] [place], [address], 01/16/2025 20:10:50 01/11/20 25 01/16/2025 TOXAS SURE FLEX 22, URINE alpha-hydrox yalprazolam Not Detect ed NG/mg _crea t Not Available [facility] ([facility]) [address] [place], [address], 01/16/2025 20:10:50 01/11/20 25 01/16/2025 TOXAS SURE FLEX 22, URINE desalkylflur azepam Not Detect ed NG/mg _crea t Not Available [facility] ([facility]) [address] [place], [address], 01/16/2025 20:10:50 01/11/20 25 01/16/2025 TOXAS SURE FLEX 22, URINE lorazepam Not Detect ed NG/mg _crea t Not Available [facility] ([facility]) [address] [place], [address], 01/16/2025 20:10:50 01/11/20 25 01/16/2025 TOXAS SURE FLEX 22, URINE alpha-hydrox ytriazolam Not Detect ed NG/mg _crea t Not Available [facility] ([facility]) [address] [place], [address], 01/16/2025 20:10:50 01/11/20 25 01/16/2025 TOXAS SURE FLEX 22, URINE clonazepam Not Detect ed NG/mg _crea t Not Available [facility] ([facility]) [address] [place], [address], 01/16/2025 20:10:50 01/11/20 25 01/16/2025 TOXAS SURE FLEX 22, URINE 7-aminoclona zepam Not Detect ed NG/mg _crea t Not Available [facility] ([facility]) [address] [place] [address], [address], 01/16/2025 20:10:50 01/11/20 25 01/16/2025 TOXAS SURE FLEX 22, URINE midazolam Not Detect ed NG/mg _crea t Not Available [facility] ([facility]) [address] [place] [address], [address], 01/16/2025 20:10:50 01/11/20 25 01/16/2025 TOXAS SURE FLEX 22, URINE alpha-hydrox ymidazolam Not Detect ed NG/mg _crea t Not Available [facility] ([facility]) [address] [place], [address], 01/16/2025 20:10:50 01/11/20 25 01/16/2025 TOXAS SURE FLEX 22, URINE flunitrazepa m Not Detect ed NG/mg _crea t Not Available [facility] ([facility]) [address] [place] [address], [address], 01/16/2025 20:10:50 01/11/20 25 01/16/2025 TOXAS SURE FLEX 22, URINE desmethylflu nitrazepam Not Detect ed NG/mg _crea t Not Available [facility] ([facility]) [address] [place] [address], [address], 01/16/2025 20:10:50 01/11/20 25 01/16/2025 TOXAS SURE FLEX 22, URINE cocaine metabolite ia Negati ve NG/mL cutoff :150 Not Available [facility] ([facility]) [address] [place] [address], [address], 01/16/2025 20:10:50 01/11/20 25 01/16/2025 TOXAS SURE FLEX 22, URINE ethyl alcohol enzymatic Negati ve g/dL cutoff :0.020 Not Available [facility] ([facility]) [address] [place] [address], [address], 01/16/2025 20:10:50 01/11/20 25 01/16/2025 TOXAS SURE FLEX 22, URINE ethanol biomarkers ia COMMEN T NG/mL cutoff :500 Furth er testi ng indic ated Not Available [facility] ([facility]) [address] [place], [address], 01/16/2025 20:10:50 01/11/20 25 01/16/2025 TOXAS SURE FLEX 22, URINE 6-acetylmorp quinn ia Negati ve NG/mL cutoff :10 Not Available [facility] ([facility]) [address] [place], [address], 01/16/2025 20:10:50 01/11/20 25 01/16/2025 TOXAS SURE FLEX 22, URINE opiate class ia COMMEN T NG/mL cutoff :100 Furth er testi ng indic ated Not Available [facility] ([facility]) [address] [place], [address], 01/16/2025 20:10:50 01/11/20 25 01/16/2025 TOXAS SURE FLEX 22, URINE oxycodone class ia COMMEN T NG/mL cutoff :100 Furth er testi ng indic ated Not Available [facility] ([facility]) [address] [place], [address], 01/16/2025 20:10:50 01/11/20 25 01/16/2025 TOXAS SURE FLEX 22, URINE methadone ia COMMEN T NG/mL cutoff :100 Furth er testi ng indic ated Not Available [facility] ([facility]) [address] [place], [address], 01/16/2025 20:10:50 01/11/20 25 01/16/2025 TOXAS SURE FLEX 22, URINE methadone mtb ia COMMEN T NG/mL cutoff :100 Furth er testi ng indic ated Not Available [facility] ([facility]) [address] [place] [address], [address], 01/16/2025 20:10:50 01/11/20 25 01/16/2025 TOXAS SURE FLEX 22, URINE buprenorphin e Negati ve Not Available [facility] ([facility]) [address] [place], [address], 01/16/2025 20:10:50 01/11/20 25 01/16/2025 TOXAS SURE FLEX 22, URINE buprenorphin e Not Detect ed NG/mg _crea t Not Available [facility] ([facility]) [address] [place], [address], 01/16/2025 20:10:50 01/11/20 25 01/16/2025 TOXAS SURE FLEX 22, URINE norbuprenorp quinn Not Detect ed NG/mg _crea t Not Available [facility] ([facility]) [address] [place], [address], 01/16/2025 20:10:50 01/11/20 25 01/16/2025 TOXAS SURE FLEX 22, URINE fentanyl / analogues Negati ve Not Available [facility] ([facility]) [address] [place], [address], 01/16/2025 20:10:50 01/11/20 25 01/16/2025 TOXAS SURE FLEX 22, URINE fentanyl Not Detect ed NG/mg _crea t Not Available [facility] ([facility]) [address] [place], [address], 01/16/2025 20:10:50 01/11/20 25 01/16/2025 TOXAS SURE FLEX 22, URINE norfentanyl Not Detect ed NG/mg _crea t Not Available [facility] ([facility]) [address] [place], [address], 01/16/2025 20:10:50 01/11/20 25 01/16/2025 TOXAS SURE FLEX 22, URINE tapentadol ia Negati ve NG/mL cutoff :200 Not Available [facility] ([facility]) [address] [place], [address], 01/16/2025 20:10:50 01/11/20 25 01/16/2025 TOXAS SURE FLEX 22, URINE meperidine ia Negati ve NG/mL cutoff :200 Not Available [facility] ([facility]) [address] [place], [address], 01/16/2025 20:10:50 01/11/20 25 01/16/2025 TOXAS SURE FLEX 22, URINE propoxyphene ia Negati ve NG/mL cutoff :300 Not Available [facility] ([facility]) [address] [place], [address], 01/16/2025 20:10:50 01/11/20 25 01/16/2025 TOXAS SURE FLEX 22, URINE tramadol ia Negati ve NG/mL cutoff :200 Not Available [facility] ([facility]) [address] [place], [address], 01/16/2025 20:10:50 01/11/20 25 01/16/2025 TOXAS SURE FLEX 22, URINE barbiturates ia COMMEN T NG/mL cutoff :200 Furth er testi ng indic ated Not Available [facility] ([facility]) [address] [place], [address], 01/16/2025 20:10:50 01/11/20 25 01/16/2025 TOXAS SURE FLEX 22, URINE other hallucinogen s Negati ve Not Available [facility] ([facility]) [address] [place], [address], 01/16/2025 20:10:50 01/11/20 25 01/16/2025 TOXAS SURE FLEX 22, URINE ketamine Not Detect ed Not Available [facility] ([facility]) [address] [place], [address], 01/16/2025 20:10:50 01/11/20 25 01/16/2025 TOXAS SURE FLEX 22, URINE norketamine Not Detect ed Not Available [facility] ([facility]) [address] [place], [address], 01/16/2025 20:10:50 01/11/20 25 01/16/2025 TOXAS SURE FLEX 22, URINE phencyclidin e ia COMMEN T NG/mL cutoff :25 Furth er testi ng indic ated Not Available [facility] ([facility]) [address] [place], [address], 01/16/2025 20:10:50 01/11/20 25 01/16/2025 TOXAS SURE FLEX 22, URINE gabapentin ia COMMEN T ug/mL cutoff :1.0 Furth er testi ng indic ated Not Available [facility] ([facility]) [address] [place], [address], 01/16/2025 20:10:50 01/11/20 25 01/16/2025 TOXAS SURE FLEX 22, URINE carisoprodol ia Negati ve NG/mL cutoff :100 Not Available [facility] ([facility]) [address] [place], [address], 01/16/2025 20:10:50 01/11/20 25 01/16/2025 TOXAS SURE FLEX 22, URINE sedative/hyp notics Negati ve Not Available [facility] ([facility]) [address] [place], [address], 01/16/2025 20:10:50 01/11/20 25 01/16/2025 TOXAS SURE FLEX 22, URINE zolpidem Not Detect ed Not Available [facility] ([facility]) [address] [place], [address], 01/16/2025 20:10:50 01/11/20 25 01/16/2025 TOXAS SURE FLEX 22, URINE zolpidem acid Not Detect ed Not Available [facility] ([facility]) [address] [facility] [place], [address], 01/16/2025 20:10:50 01/11/20 25 01/16/2025 TOXAS SURE FLEX 22, URINE zopiclone/es zopiclone Not Detect ed Not Available [facility] ([facility]) [address] [facility], [place], [address], 01/16/2025 20:10:50 01/11/20 25 01/16/2025 TOXAS SURE FLEX 22, URINE amino chloropyridi ne Not Detect ed Not Available [facility] ([facility]) [address] [facility], [place], [address], 01/16/2025 20:10:50 01/11/20 25 01/16/2025 TOXAS SURE FLEX 22, URINE zaleplon Not Detect ed Expec marlene metab olism of Sedat brigitte/ Hypno tics: Paren t Drug Detec marlene Metab olite s ----- ----- - ----- ----- ----- ----- Zolpi dem: Zolpi dem Acid Zopic lone/ Eszop iclon e: Amino Chlor opyri dine Zalep kev: None Not Available [facility] ([facility]) [address] [facility], [place], [address], 01/16/2025 20:10:50 01/11/20 25 01/16/2025 TOXAS SURE FLEX 22, URINE acetaminophe n ia COMMEN T ug/mL cutoff :5.0 Furth er testi ng indic ated Not Available [facility] ([facility]) [address] [facility], [place], [address], 01/16/2025 20:10:50 01/11/20 25 01/16/2025 TOXAS SURE FLEX 22, URINE miscellaneou s Negati ve Not Available [facility] ([facility]) [address] [place], [address], 01/16/2025 20:10:50 01/11/20 25 01/16/2025 TOXAS SURE FLEX 22, URINE dextromethor olmos Not Detect ed Not Available [facility] ([facility]) [address] [facility], [place], [address], 01/16/2025 20:10:50 01/11/20 25 01/16/2025 TOXAS SURE FLEX 22, URINE dextrorphan/ levorphanol Not Detect ed Expec marlene metab olism of Dextr ometh orpha n and Dextr orpha n/Lev orpha nol: Paren t Drug Detec marlene Metab olite s ----- ----- - ----- ----- ----- ----- Dextr ometh orpha n: Dextr orpha n Dextr orpha n/Lev orpha nol: None Dextr ophan canno t be disti nguis hed from Levor phano l by the metho d used for lettiia sis. Not Available [facility] ([facility]) [address] [facility], [place], [address], 01/16/2025 20:10:50 01/11/2001/16/2025 VERITO TURAT ES, MS, UR RFX barbiturates Negati ve Not Available [facility] ([facility]) [address] [facility], [place], [address], 01/16/2025 20:10:51 01/11/20 25 01/16/2025 VERITO TURAT ES, MS, UR RFX amobarbital Not Detect ed Not Available [facility] ([facility]) [address] [facility], [place], [address], 01/16/2025 20:10:51 01/11/20 25 01/16/2025 VERITO TURAT ES, MS, UR RFX barbital Not Detect ed Not Available [facility] ([facility]) [address] [facility], [place], [address], 01/16/2025 20:10:51 01/11/20 25 01/16/2025 VERITO TURAT ES, MS, UR RFX butabarbital Not Detect ed Not Available [facility] ([facility]) [address] [facility], [place], [address], 01/16/2025 20:10:51 01/11/20 25 01/16/2025 VERITO TURAT ES, MS, UR RFX butalbital Not Detect ed Not Available [facility] ([facility]) [address] [facility], [place], [address], 01/16/2025 20:10:51 01/11/20 25 01/16/2025 VERITO TURAT ES, MS, UR RFX mephobarbita l Not Detect ed Not Available [facility] ([facility]) [address] [facility], [place], [address], 01/16/2025 20:10:51 01/11/20 25 01/16/2025 VERITO TURAT ES, MS, UR RFX pentobarbita l Not Detect ed Not Available [facility] ([facility]) [address] [facility], [place], [address], 01/16/2025 20:10:51 01/11/20 25 01/16/2025 VERITO TURAT ES, MS, UR RFX phenobarbita l Not Detect ed Not Available [facility] ([facility]) [address] [facility], [place], [address], 01/16/2025 20:10:51 01/11/20 25 01/16/2025 VERITO TURAT ES, MS, UR RFX secobarbital Not Detect ed Not Available [facility] ([facility]) [address] [facility], [place], [address], 01/16/2025 20:10:51 01/11/20 25 01/16/2025 VERITO TURAT ES, MS, UR RFX thiopental Not Detect ed Not Available [facility] ([facility]) [address] [facility], [place], [address], 01/16/2025 20:10:51 01/11/20 25 01/16/2025 OPIAT E CLASS , MS, UR RFX opiate class Negati ve Not Available [facility] ([facility]) [address] [facility], [place], [address], 01/16/2025 20:10:52 01/11/20 25 01/16/2025 OPIAT E CLASS , MS, UR RFX codeine Not Detect ed NG/mg _crea t Not Available [facility] ([facility]) [address] [facility], [place], [address], 01/16/2025 20:10:52 01/11/20 25 01/16/2025 OPIAT E CLASS , MS, UR RFX morphine Not Detect ed NG/mg _crea t Not Available [facility] ([facility]) [address] [facility], [place], [address], 01/16/2025 20:10:52 01/11/20 25 01/16/2025 OPIAT E CLASS , MS, UR RFX normorphine Not Detect ed NG/mg _crea t Not Available [facility] ([facility]) [address] [facility], [place], [address], 01/16/2025 20:10:52 01/11/20 25 01/16/2025 OPIAT E CLASS , MS, UR RFX norcodeine Not Detect ed NG/mg _crea t Not Available [facility] ([facility]) [address] [facility], [place], [address], 01/16/2025 20:10:52 01/11/20 25 01/16/2025 OPIAT E CLASS , MS, UR RFX hydrocodone Not Detect ed NG/mg _crea t Not Available [facility] ([facility]) [address] [place], [address], 01/16/2025 20:10:52 01/11/20 25 01/16/2025 OPIAT E CLASS , MS, UR RFX hydromorphon e Not Detect ed NG/mg _crea t Not Available [facility] ([facility]) [address] [facility], [place], [address], 01/16/2025 20:10:52 01/11/20 25 01/16/2025 OPIAT E CLASS , MS, UR RFX dihydrocodei ne Not Detect ed NG/mg _crea t Not Available [facility] ([facility]) [address] [facility], [place], [address], 01/16/2025 20:10:52 01/11/20 25 01/16/2025 OPIAT E CLASS , MS, UR RFX norhydrocodo ne Not Detect ed NG/mg _crea t Expec marlene metab olism of opiat e class drugs : Paren t Drug Detec marlene Metab olite s ----- ----- - ----- ----- ----- ----- Codei ne: Major : Morph ine, Brainard deine Minor : Larslan codon e, Larslan morph one, Dihyd rocod eine, Norhy droco done, Normo rphin e Morph ine: Major : Normo rphin e Minor : Larslan morph one Larslan codon e: Larslan morph one, Dihyd rocod eine, Norhy droco done Larslan morph one: None Dihyd rocod eine: None Heroi n: 6-Kal tylmo rphin e (if inclu ded), Morph ine, Normo rphin e Codei ne, in small amoun ts in destin rison to morph ine, is often detec marlene when heroi n is the sourc e drug. Not Available [facility] ([facility]) [address] [facility], [place], [address], 01/16/2025 20:10:52 01/11/20 25 01/16/2025 AMPHE TAMIN ES, MS, UR RFX amphetamines Negati ve Not Available [facility] ([facility]) [address] [facility], [place], [address], 01/16/2025 20:10:52 01/11/20 25 01/16/2025 AMPHE TAMIN ES, MS, UR RFX methamphetam ine Not Detect ed NG/mg _crea t Not Available [facility] ([facility]) [address] [facility], [place], [address], 01/16/2025 20:10:52 01/11/20 25 01/16/2025 AMPHE TAMIN ES, MS, UR RFX amphetamine Not Detect ed NG/mg _crea t Not Available [facility] ([facility]) [address] [facility], [place], [address], 01/16/2025 20:10:52 01/11/20 25 01/16/2025 AMPHE TAMIN ES, MS, UR RFX MDMA (ecstasy) Not Detect ed NG/mg _crea t Not Available [facility] ([facility]) [address] [place], [address], 01/16/2025 20:10:52 01/11/20 25 01/16/2025 AMPHE TAMIN ES, MS, UR RFX mda (ecstasy metabolite) Not Detect ed NG/mg _crea t Not Available [facility] ([facility]) [address] [place], [address], 01/16/2025 20:10:52 01/11/20 25 01/16/2025 OXYCO DONE CLASS , MS, UR RFX oxycodone class Negati ve Not Available [facility] ([facility]) [address] [place], [address], 01/16/2025 20:10:53 01/11/20 25 01/16/2025 OXYCO DONE CLASS , MS, UR RFX oxycodone Not Detect ed NG/mg _crea t Not Available [facility] ([facility]) [address] [facility], [place], [address], 01/16/2025 20:10:53 01/11/20 25 01/16/2025 OXYCO DONE CLASS , MS, UR RFX oxymorphone Not Detect ed NG/mg _crea t Not Available [facility] ([facility]) [address] [place], [address], 01/16/2025 20:10:53 01/11/20 25 01/16/2025 OXYCO DONE CLASS , MS, UR RFX noroxycodone Not Detect ed NG/mg _crea t Not Available [facility] ([facility]) [address] [facility], [place], [address], 01/16/2025 20:10:53 01/11/20 25 01/16/2025 OXYCO DONE CLASS , MS, UR RFX noroxymorpho ne Not Detect ed NG/mg _crea t Expec marlene metab olism of oxyco done class drugs : Paren t Drug Detec marlene Metab olite s ----- ----- - ----- ----- ----- ----- Oxyco done: Oxymo rphon e, Norox ycodo ne, Norox ymorp keesha Oxymo rphon e: Norox ymorp keesha Not Available [facility] ([facility]) [address] [facility], [place], [address], 01/16/2025 20:10:53 01/11/20 25 01/16/2025 KIMBERLEY OL BIOMA RKERS , MS, UR RFX ethanol biomarkers Negati ve Not Available [facility] ([facility]) [address] [place], [address], 01/16/2025 20:10:53 01/11/20 25 01/16/2025 KIMBERLEY OL BIOMA RKERS , MS, UR RFX ethyl glucuronide Not Detect ed NG/mg _crea t Not Available [facility] ([facility]) [address] [facility], [place], [address], 01/16/2025 20:10:53 01/11/20 25 01/16/2025 KIMBERLEY OL BIOMA RKERS , MS, UR RFX ethyl sulfate Not Detect ed NG/mg _crea t Not Available [facility] ([facility]) [address] [facility], [place], [address], 01/16/2025 20:10:53 01/11/20 25 01/16/2025 METHA DONE, MS, UR RFX methadone Negati ve Not Available [facility] ([facility]) [address] [facility], [place], [address], 01/16/2025 20:10:54 01/11/2001/16/2025 METHA DONE, MS, UR RFX methadone Not Detect ed NG/mg _crea t Not Available [facility] ([facility]) [address] [facility], [place], [address], 01/16/2025 20:10:54 01/11/2001/16/2025 METHA DONE, MS, UR RFX EDDP (methadone mtb) Not Detect ed NG/mg _crea t Not Available [facility] ([facility]) [address] [facility], [place], [address], 01/16/2025 20:10:54 01/11/2001/16/2025 PHENC YCLID INE, MS, UR RFX other hallucinogen s Negati ve Not Available [facility] ([facility]) [address] [facility], [place], [address], 01/16/2025 20:10:54 01/11/20 25 01/16/2025 PHENC YCLID INE, MS, UR RFX phencyclidin e Not Detect ed Not Available [facility] ([facility]) [address] [place], [address], 01/16/2025 20:10:54 01/11/20 25 01/16/2025 GABAP ENTIN , MS, UR RFX anticonvulsa nts Negati ve Not Available [facility] ([facility]) [address] [facility], [place], [address], 01/16/2025 20:10:55 01/11/20 25 01/16/2025 GABAP ENTIN , MS, UR RFX gabapentin Not Detect ed Not Available [facility] ([facility]) [address] [facility], [place], [address], 01/16/2025 20:10:55 01/11/20 25 01/16/2025 ACETA MINOP HEN, MS, UR RFX analgesics/n saids +POSIT ANTHONY+ Not Available [facility] ([facility]) [address] [facility], [place], [address], 01/16/2025 20:10:55 01/11/20 25 01/16/2025 ACETA MINOP HEN, MS, UR RFX acetaminophe n PRESEN T Not Available [facility] ([facility]) [address] [facility], [place], [address], 01/16/2025 20:10:55 01/11/20 25 01/10/2025 micro album in/cr eatin ine, mass ratio , urine Microalbumin 150mg/ L Not Available [address] , [place], [address], 01/10/2025 11:42:27 01/11/20 25 01/10/2025 micro album in/cr eatin ine, mass ratio , urine Creatinine 300mg/ dL Not Available [address] , [place], [address], 01/10/2025 11:42:27 01/11/20 25 01/10/2025 micro album in/cr eatin ine, mass ratio , urine Ratio 30-300 mg/g Not Available [address] , [place], [address], 01/10/2025 11:42:27 Result Notes None recorded. Problems Name Problem SNOMED Code Status Onset Date Resolution Date Notes Provider Name and Address Organization Details Recorded Time History of cardiac catheter ization 63900211922 100 Active Not Available [facility] 3 10:30:55 Degenera tion of lumbosac ral interver tebral disc 99089186 Active 2016 Not Available [facility] 3 10:30:55 Type 2 diabetes mellitus 41147782 Completed 201604/01/2016 Removal Reason: resolved Frank Seth MD [address], [place], [address] , [place] - [facility] 3 16:05:55 Gastroes ophageal reflux disease without esophagi tis 476837853 Active 2016 Not Available [facility] 3 10:30:55 Hyperlip idemia 25199744 Completed 201604/01/2016 Removal Reason: resolved Frank Seth MD [address], [place], [address] , [place] - [facility] 1 13:34:08 [facility]entia l hyperten diamond 61907983 Completed 201604/01/2016 Removal Reason: resolved Frank Seth MD [address], [place], [address] , [place] - [facility] 7 09:29:58 Obesity 043234732 Active 2016 Not Available [facility] 3 10:30:55 Osteoart hritis 543202780 Active 2016 Not Available [facility] 3 10:30:55 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 01203864 Completed 201604/01/2016 Removal Reason: resolved Frank Seth MD [address], [place], [address] , [place] - [facility] 7 09:29:42 Sleep apnea 34070538 Active 2019 Not Available [facility] 3 10:30:55 Exposure to SARS-CoV -2 Active 2020 Not Available [facility] 3 10:30:55 Testoste candida level below referenc e range 816296515 Active 2020 Not Available [facility] 3 10:30:55 Hyperlip idemia 35323354 Active 2020 Not Available [facility] 3 10:30:55 History of coronary artery bypass grafting 248111374 Active 2021 Not Available [facility] 3 10:30:55 Contract ure of neck of urinary bladder 65950503871 103 Active 2021 Not Available [facility] 3 10:30:55 Coronary arterios clerosis 89641398 Active 2021 Not Available [facility] 3 10:30:55 Memory impairme nt 594573097 Active 2021 Not Available [facility] 3 10:30:55 Prediabe laron 194220728 Active 2022 Alayna Meneses, [employer] [address], [place], [address] , [place] - [facility] 3 10:22:30 Hypotest osteroni sm 78800534839 04 Active 2024 Frank Seth MD [address], [place], [address] , [place] - [facility] 5 09:14:18 Atrial fibrilla tion 95564409 Active 2024 Frank Seth MD [address], [place], [address] , [place] - [facility] 5 09:17:07 Problem Notes None recorded. Procedures Surgical History Date Name Laterality Status Provider Name and Address Organization Details Recorded Time 04/25/19 25 Pacemaker Placement completed Delphine Adams MD - [facility] 06/20/2024 11:00:32 11/16/19 24 Advance Care Planning completed Karla Patricio MD - [facility] 11/16/2023 14:16:22 11/16/19 24 Functional Status Assessed completed Karla Patricio MD - [facility] 11/16/2023 14:16:22 04/25/19 24 Shoulder joint surgery completed Delphine Adams [place] - [facility] 05/03/2023 10:32:15 08/27/19 22 Advance Care Planning completed Griselda Morris RN [address], [place], [address], [place] - [facility] 08/17/2021 15:16:24 08/27/19 22 Functional Status Assessed completed Griselda Morris RN [address], [place], [address], [place] - [facility] 08/17/2021 15:07:44 05/15/19 22 Medication Reconcilliation completed Karla Patricio [place] - [facility] 05/14/2021 13:42:09 05/02/19 22 coronary artery bypass graft completed Karla Patricio [place] - [facility] 05/14/2021 13:49:40 08/23/19 21 Advance Care Planning completed Karla Patricio [place] - [facility] 08/22/2020 09:54:04 08/23/19 21 Functional Status Assessed completed Karla Patricio [place] - [facility] 08/22/2020 09:54:04 02/26/20 20 Colonoscopy completed Griselda Morris RN [address], [place], [address], [place] - [facility] 06/23/2020 15:07:33 01/09/20 20 Diastolic B/P 80-89 mm Hg completed Karla Patricio [place] - [facility] 01/09/2020 13:18:34 01/09/20 20 Systolic B/P 130-139 mm Hg completed Karla Patricio [place] - [facility] 01/09/2020 13:18:28 01/09/20 20 Excision Benign Lesion completed Frank Seth MD [address], [place], [address], [place] - [facility] 01/09/2020 13:46:29 11/22/19 20 Diastolic B/P greater than or equal to 90 mm Hg completed Karla Patricio [place] - [facility] 11/22/2019 14:18:58 11/22/19 20 Systolic B/P greater than or equal to 140 mm Hg completed Karla Patricio [place] - [facility] 11/22/2019 14:18:53 04/12/19 20 Cerumen Removal completed Frank Seth MD [address], [place], [address], [place] - [facility] 04/12/2019 13:27:25 04/12/19 20 Diastolic B/P greater than or equal to 90 mm Hg completed Karla ASHLEY - [facility] 04/12/2019 13:00:14 04/12/19 20 Systolic B/P 130-139 mm Hg completed Karla ASHLEY - [facility] 04/12/2019 13:00:03 Ankle arthroscopy/surgery completed Karla ASHLEY - [facility] 04/01/2016 09:15:25 Gastric Bypass completed Karla ASHLEY - [facility] 04/01/2016 09:05:01 Hip Replacement completed Karla ASHLEY - [facility] 04/01/2016 09:05:16 Knee Surgery completed Karla ASHLEY - [facility] 04/01/2016 09:05:49 Unlisted px femur/knee completed Karla ASHLEY - [facility] 04/01/2016 09:06:06 Imaging Results None recorded. Procedure Notes None recorded. Medical Equipment None Reported. Allergies Allergen ID Allergen Name Allergen Category Reaction Reaction Severity Criticality Documentation Date Start Date Code Code System Note Provider Name and Address Organization Details Recorded Time 210036 adhesive tape environme nt,medica tion Not available Not available Not available 05/14/2021 GABI Garrido - [facility] 2 13:43:52 141720 latex environme nt,medica tion Not available Not available Not available 06/02/20222022 38485 91 RxNorm GABI Velasquez - [facility] 3 10:32:45 956778 Latex (substanc e) environme nt,medica tion rash Not available [facility] 02/13/20252022 46480 8007 SNOMED Not Available april - External Data Service - prod 5 13:54:33 60127 Product containin g penicilli n (product) medicatio n Not available Not available Not available 12/05/20152007 24356 8001 SNOMED Not Available [facility] 6 09:55:42 Medications Name Sig Start Date Stop Date Status Note LastModified by Organization Details LastModified Time glucomete r active Not Available Not Available Not Available diclofena c 75 mg-misopr ostol 200 mcg tablet,im mediate,d elayed release Take 1 {tbl} twice a day by oral route. 08/18 completed Not Available Not Available Not Available furosemid e 40 mg tablet TAKE 1 TABLET BY MOUTH TWICE DAILY 06/04 completed Not Available Not Available Not Available atorvasta tin 40 mg tablet TAKE 1 TABLET BY MOUTH EVERY DAY active Not Available Not Available No t Available metformin 500 mg tablet TAKE ONE (1) TABLET TWICE A DAY BY ORAL ROUTE FOR 90 DAYS. active Not Available Not Available No t Available carvedilo l 6.25 mg tablet TAKE 1 TABLET BY MOUTH TWICE DAILY 08/26 completed Not Available Not Available Not Available prednison e 10 mg tablet 09/29 completed Not Available Not Available Not Available atorvasta tin 20 mg tablet TAKE 1 TABLET BY MOUTH AT BEDTIME FOR 90 DAYS 04/09 completed Not Available Not Available Not Available Neurontin 300 mg capsule take 1 capsule (300 mg) by oral route 3 times per day for 30 days 05/20 completed Neuronti n 300 mg oral capsule; Recorded Status: Recorded on: 04/23/19 11 11:54AM; Disconti nued Status: Disconti nued on: 05/21/19 11 4:17PM;U ser: [email or web address] ;Est. Completi on: 10/21/19 11;Print ed: 04/23/19 11 Not Available Not Available Not Available donepezil 5 mg tablet Take 1 tablet every day by oral route at bedtime for 30 days. 03/03 completed Not Available Not Available Not Available clindamyc in HCl 300 mg capsule TAKE ONE (1) CAPSULE BY MOUTH THREE (3) TIMES PER DAY 03/30 completed Not Available Not Available Not Available trazodone 50 mg tablet TAKE 2 TABLETS BY MOUTH EVERY DAY 07/25 completed Not Available Not Available Not Available azithromy dre 250 mg tablet take 2 tablets (500 mg) by oral route once daily for 1 day then 1 tablet (250 mg) by oral route once daily for 4 days 01/25 completed Not Available Not Available Not Available glyburide 5 mg tablet take 2 tablets (10 mg) by oral route 2 times per day before meals for 30 days 05/06 completed glyburid e 5 mg oral tablet;R ecorded Status: Recorded on: 12/25/19 11 4:01PM;D iscontin ued Status: Disconti nued on: 05/07/19 12 10:46AM; User: grisel peoples;Est. Completi on: 06/22/19 12;Print ed: 12/25/19 11 Not Available Not Available Not Available tizanidin e 4 mg tablet Take 1 tablet every 6 hours by oral route. 2024 active Not Available Not Available Not Avai lable Lotrisone 1 %-0.05 % topical cream apply to the affected and surround ing areas of skin by topical route 2 times per day in the morning and evening for 30 days 11/30 completed Lotrison e 1-0.05 % topical cream;Re corded Status: Recorded on: 05/07/19 12 11:20AM; Disconti nued Status: Disconti nued on: 12/01/19 12 1:54PM;U ser: grossert ;Est. Completi on: 11/03/19 12;Indic ation: Candidia sis Of Skin - (112.3); Printed: 05/07/19 12 Not Available Not Available Not Available hydrocodo ne 5 mg-acetam inophen 325 mg tablet TAKE ONE (1) TABLET BY MOUTH EVERY SIX (6) HOURS NEEDED FOR MODERATE PAIN (4-6) OR SEVERE PAIN (7-10) FOR UP TO FIVE (5) DAYS. 09/19 completed Not Available Not Available Not Available sotalol 80 mg tablet Take 1 tablet twice a day by oral route for 90 days. 08/01 completed PER PT - STATED STOPPED BY PROVIDER GLADYS 08/01/24 Not Available Not Available Not Available donepezil 10 mg tablet TAKE ONE (1) TABLET EVERY DAY BY ORAL ROUTE. active Not Available Not Available No t Available meloxicam 15 mg tablet TAKE 1 TABLET BY MOUTH ONCE DAILY FOR 90 DAYS 04/14 completed Not Available Not Available Not Available lisinopri l 20 mg tablet take 1 tablet (20 mg) by oral route once daily for 90 days 03/05 completed lisinopr il 20 mg oral tablet;R ecorded Status: Recorded on: 10/24/19 09 11:49AM; Disconti nued Status: Disconti nued on: 03/05/19 10 2:37PM;U ser: jin MccabeEst. Completi on: 04/21/19 10;Print ed: 10/24/19 09 Not Available Not Available Not Available prednison e 20 mg tablet take 1 tablet (20 mg) by oral route 3 times per day for 10 days 05/04 completed Not Available Not Available Not Available Prilosec 20 mg capsule,d elayed release take 1 capsule by oral route 2 times a day for 30 days 06/08 completed Prilosec 20 mg oral capsule, delayed release( /EC);R ecorded Status: Recorded on: 02/03/20 12 10:53AM; Disconti nued Status: Disconti nued on: 06/09/19 13 4:23PM;U ser: estepl;E st. Completvandana on: 05/04/19 13 Not Available Not Available Not Available sertralin e 100 mg tablet TAKE ONE (1) TABLET BY MOUTH EVERY DAY active Not Available Not Available No t Available Requip 1 mg tablet take 1 tablet (1 mg) by oral route 1-3 hours before bedtime 10/23 completed Requip 1 mg oral tablet;R ecorded Status: Recorded on: 05/11/19 09 2:09PM;D iscontin ued Status: Disconti nued on: 10/24/19 09 11:31AM; User: jin MccabeEst. Completi on: 11/07/19 09;Indic ation: Restless Legs Syndrome - (06.3339 92);Prin marlene: 05/11/19 09 Not Available Not Available Not Available Neurontin 800 mg tablet take 1 tablet by oral route 3 times a day for 30 days 12/04 completed Neuronti n 800 mg oral tablet;R ecorded Status: Recorded on: 11/21/19 11 4:25PM;D iscontin ued Status: Disconti nued on: 12/05/19 11 2:03PM;U ser: haym;Est . Completi on: 02/19/20 11 Not Available Not Available Not Available clindamyc in HCl 150 mg capsule 11/21 completed Not Available Not Available Not Available Protonix 20 mg tablet,de layed release Take 40 mg by oral route. 07/23 completed Not Available Not Available Not Available Neurontin 600 mg tablet take 1 capsule by oral route 3 times a day for 30 days 11/20 completed Neuronti n 600 mg oral tablet;R ecorded Status: Recorded on: 09/18/19 11 6:39PM;D iscontin ued Status: Disconti nued on: 11/21/19 11 4:25PM;U ser: wendi;Est . Completi on: 12/17/19 11 Not Available Not Available Not Available Minocin 100 mg capsule take 1 capsule by oral route daily for 30 days 08/19 completed Minocin 100 mg oral capsule; Recorded Status: Recorded on: 03/06/19 16 1:35PM;D iscontin ued Status: Disconti nued on: 08/20/19 16 1:26PM;U ser: grossert ;Est. Completi on: 02/28/19 17;Indic ation: Acne Vulgaris - (12.7061 00);Prin marlene: 03/06/19 16 Not Available Not Available Not Available Flonase 50 mcg/actua tion nasal spray,harley pension inhale 1 spray in each nostril by nasal route once daily for 7 days 12/16 completed Flonase 50 mcg/actu ation nasal spray,otero spension ;Recorde d Status: Recorded on: 12/14/19 12 11:23AM; Disconti nued Status: Disconti nued on: 12/17/19 12 10:55AM; User: Silvano inted: 12/14/19 12 Not Available Not Available Not Available oxcarbaze pine 300 mg tablet TAKE 1 TABLET BY MOUTH TWICE DAILY 05/14 completed Not Available Not Available Not Available clopidogr el 75 mg tablet TAKE 1 TABLET BY MOUTH ONCE DAILY 09/07 completed Not Available Not Available Not Available simvastat in 80 mg tablet take 1 tablet (80 mg) by oral route once daily in the evening for 30 days 06/08 completed simvasta tin 80 mg oral tablet;R ecorded Status: Recorded on: 12/25/19 11 4:01PM;D iscontin ued Status: Disconti nued on: 06/09/19 12 4:42PM;U ser: grisel r;Est. Completi on: 06/22/19 12;Print ed: 12/25/19 11 Not Available Not Available Not Available ciproflox acin 500 mg tablet TAKE 1 TABLET BY MOUTH EVERY 12 HOURS FOR 7 DAYS 06/24 completed Not Available Not Available Not Available sulfameth oxazole 800 mg-trimet hoprim 160 mg tablet TAKE 1 TABLET BY MOUTH TWICE DAILY FOR 7 DAYS 03/03 completed Not Available Not Available Not Available omeprazol e 40 mg capsule,d elayed release TAKE 1 CAPSULE BY MOUTH ONCE DAILY 05/14 completed Not Available Not Available Not Available aspirin 81 mg tablet,de layed release TAKE 1 TABLET BY MOUTH ONCE DAILY 04/09 completed Not Available Not Available Not Available carvedilo l 3.125 mg tablet TAKE 1 TABLET BY MOUTH TWICE DAILY WITH FOOD 08/26 completed Not Available Not Available Not Available Prevacid 30 mg capsule,d elayed release take 2 capsules (60 mg) by oral route once daily before a meal for 30 days 05/06 completed Prevacid 30 mg oral capsule, delayed release( /EC);R ecorded Status: Recorded on: 12/25/19 11 4:01PM;D iscontin ued Status: Disconti nued on: 05/07/19 12 10:46AM; User: grisel r;Est. Completi on: 06/22/19 12;Print ed: 12/25/19 11 Not Available Not Available Not Available Kenalog 40 mg/mL suspensio n for injection Take 2 mL every day by injectio n route. 03/21 completed Not Available Not Available Not Available oxycodone -acetamin ophen 5 mg-325 mg tablet TAKE 1 TO 2 TABLETS BY MOUTH EVERY 4 HOURS NEEDED FOR ACUTE PAIN 08/14 completed Not Available Not Available Not Available ceftriaxo ne 1 gram solution for injection Take 1 g by injectio n route. 04/26 completed Not Available Not Available Not Available Celebrex 100 mg capsule take 1 capsule (100 mg) by oral route 2 times per day for 90 days 01/27 completed Celebrex 100 mg oral capsule; Recorded Status: Recorded on: 07/27/19 14 11:51AM; Disconti nued Status: Disconti nued on: 01/28/20 15 1:00PM;U ser: haym;Est . Completi on: 01/23/20 14 Not Available Not Available Not Available Gege 180 mg tablet take 1 tablet (180 mg) by oral route once daily for 30 days 11/30 completed Gege 180 mg oral tablet;R ecorded Status: Recorded on: 06/09/19 12 4:55PM;D iscontin ued Status: Disconti nued on: 12/01/19 12 1:54PM;U ser: grossert ;Est. Completi on: 12/06/19 12;Indic ation: Allergic Rhinitis - (08.4779 00);Prin marlene: 06/09/19 12 Not Available Not Available Not Available cephalexi n 500 mg capsule take 1 capsule (500 mg) by oral route every 6 hours for 10 days 10/06 completed Not Available Not Available Not Available pantopraz ole 40 mg tablet,de layed release TAKE ONE (1) TABLET BY MOUTH EVERY DAY active Not Available Not Available No t Available fluoromet holone 0.1 % eye drops,harley pension INSTILL ONE (1) DROP FOUR (4) TIMES DAILY IN AFFECTED EYE(S) FOR TWO (2) WEEKS, THEN TWICE DAILY FOR ONE (1) WEEK THEN DISCONTI NUE 11/15 completed Not Available Not Available Not Available polymyxin B sulfate 10,000 unit-trim ethoprim 1 mg/mL eye drops 09/30 completed Not Available Not Available Not Available diclofena c sodium 75 mg tablet,de layed release TAKE ONE (1) TABLET BY MOUTH TWICE DAILY active Not Available Not Available No t Available lisinopri l 5 mg tablet Take 1 tablet every day by oral route for 90 days. 08/01 completed PER PT - STATED IT WAS D/C'D Not Available Not Available Not Available hydrochlo rothiazid e 25 mg tablet take 1 tablet (25 mg) by oral route once daily for 90 days for tinnitis and BP 06/04 completed hydrochl orothiaz shirlene 25 mg oral tablet;R ecorded Status: Recorded on: 12/07/19 09 10:02AM; Disconti nued Status: Disconti nued on: 06/05/19 10 9:02AM;U ser: grossert ;Est. Completi on: 06/05/19 10;Print ed: 12/07/19 09 Not Available Not Available Not Available mupirocin 2 % topical ointment APPLY A SMALL AMOUNT OF OINTMENT TOPICALL Y TO AFFECTED AREA THREE TIMES DAILY 08/26 completed Not Available Not Available Not Available furosemid e 20 mg tablet TAKE 1 TABLET BY MOUTH ONCE DAILY FOR 90 DAYS 06/24 completed Not Available Not Available Not Available mirtazapi ne 15 mg tablet TAKE ONE (1) TABLET EVERY DAY BY ORAL ROUTE FOR 90 DAYS. active Not Available Not Available No t Available metoprolo l succinate ER 25 mg tablet,ex tended release 24 hr TAKE ONE (1) TABLET (25 MG) BY MOUTH DAILY. DO NOT CRUSH OR CHEW. 07/02 completed PER CHRISTOPHER WALLACE - D/C IN RXQ & PT DID NOT BRING IN WHEN HE BROUGHT IN MEDS HE WAS TAKING Not Available Not Available Not Available Viagra 100 mg tablet Take 0.5 tablets every day by oral route. 03/03 completed Not Available Not Available Not Available Nasonex 50 mcg/actua tion [place] 1 sniff bilat bid 01/27 completed Nasonex 50 mcg/actu ation nasal spray,no n-aeroso l;Record ed Status: Recorded on: 06/01/19 14 4:08PM;D iscontin ued Status: Disconti nued on: 01/28/20 15 1:00PM;U ser: grossert ;Est. Completi on: 06/21/19 14;Indic ation: Maxillar y Sinusiti s, Acute - (461.0); Printed: 06/01/19 14 Not Available Not Available Not Available testoster one cypionate 200 mg/mL intramusc ular oil Inject 1 mL every 2 weeks by intramus cular route. 2024 active Not Available Not Available Not Avai lable prednison e 5 mg tablets in a dose pack take as directed 01/27 completed predniso ne 5 mg oral tablets, dose pack;Rec orded Status: Recorded on: 01/28/20 15 1:14PM;D iscontin ued Status: Disconti nued on: 01/28/20 15 1:20PM;U ser: groomsb Not Available Not Available Not Available methylpre dnisolone 4 mg tablets in a dose pack TAKE BY MOUTH DIRECTED ON INSIDE OF PACKAGE 05/13 completed Not Available Not Available Not Available albuterol sulfate HFA 90 mcg/actua tion aerosol inhaler INHALE ONE (1) TO TWO (2) PUFFS EVERY 4-6 HOURS NEEDED 03/03 completed Not Available Not Available Not Available ferrous sulfate 325 mg (65 mg iron) tablet,de layed release Take 1 tablet twice a day by oral route for 30 days. 08/26 completed Not Available Not Available Not Available ipratropi um bromide 42 mcg (0.06 %) nasal spray INSTILL ONE (1) TO TWO (2) SPRAYS IN EACH NOSTRIL TWICE DAILY 03/03 completed Not Available Not Available Not Available Actos 45 mg tablet take 1 tablet (45 mg) by oral route once daily for 30 days 05/06 completed Actos 45 mg oral tablet;R ecorded Status: Recorded on: 12/25/19 11 4:01PM;D iscontin ued Status: Disconti nued on: 05/07/19 12 10:46AM; User: grisel Phelps on: 06/22/19 12;Print ed: 12/25/19 11 Not Available Not Available Not Available lisinopri l 40 mg tablet take 1 tablet (40 mg) by oral route once daily for 30 days 05/06 completed lisinopr il 40 mg oral tablet;R ecorded Status: Recorded on: 12/25/19 11 4:01PM;D iscontin ued Status: Disconti nued on: 05/07/19 12 10:46AM; User: grisel peoples;Est. Completi on: 06/22/19 12;Print ed: 12/25/19 11 Not Available Not Available Not Available cefdinir 300 mg capsule TAKE ONE (1) CAPSULE EVERY 12 HOURS BY ORAL ROUTE FOR 10 DAYS. 03/21 completed Not Available Not Available Not Available sertralin e 50 mg tablet TAKE ONE (1) TABLET EVERY DAY BY ORAL ROUTE FOR 90 DAYS. 03/21 completed Not Available Not Available Not Available loratadin e 10 mg tablet take 1 tablet (10 mg) by oral route once daily for 30 days 03/06 completed loratadi ne 10 mg oral tablet;P rescribe Status: Prescrib ed on: 02/15/20 15 4:45PM;D iscontin ued Status: Disconti nued on: 03/06/19 16 1:15PM;U ser: stroopr; Est. Completi on: 05/15/19 16;Pharm acyVerif ied: 02/15/20 15 4:45PM;P rinted: 02/15/20 15 Not Available Not Available Not Available Cozaar 50 mg tablet take 1 tablet (50 mg) by oral route once daily for 30 days 11/30 completed Cozaar 50 mg oral tablet;R ecorded Status: Recorded on: 07/22/19 12 10:45AM; Disconti nued Status: Disconti nued on: 12/01/19 12 1:54PM;U ser: grossert ;Est. Completi on: 01/18/20 12;Indic ation: Hyperten diamond - (07.4019 00);Prin marlene: 07/22/19 12 Not Available Not Available Not Available oxycodone 5 mg tablet 11/21 completed Not Available Not Available Not Available Coreg 12.5 mg tablet Take 6.25 mg twice a day by oral route. 08/18 completed Not Available Not Available Not Available memantine 10 mg tablet TAKE ONE (1) TABLET BY MOUTH TWICE DAILY active Not Available Not Available No t Available memantine 5 mg-10 mg tablets in a dose pack USE DIRECTED 04/26 completed Not Available Not Available Not Available BD SafetyGli de Syringe 3 mL 23 x 1 USE DIRECTED PER MEDICAL INSTRUCT ION active Not Available Not Available No t Available Topamax 50 mg tablet take 1 tablet by oral route once a day (at bedtime) for 30 days 12/04 completed Topamax 50 mg oral tablet;R ecorded Status: Recorded on: 07/24/19 11 11:26AM; Disconti nued Status: Disconti nued on: 12/05/19 11 8:24AM;U ser: haym;Est . Completi on: 11/21/19 11 Not Available Not Available Not Available Cymbalta 60 mg capsule,d elayed release take 1 capsule (60 mg) by oral route once daily for 30 days 03/23 completed Cymbalta 60 mg oral capsule, delayed release( /EC);c omment: Recommen ded by gastric bypass surgeon; Recorded Status: Recorded on: 01/21/20 11 10:50AM; Disconti nued Status: Disconti nued on: 03/23/19 12 2:56PM;U ser: haym;Est . Completi on: 07/19/19 12;Print ed: 01/21/20 11 Not Available Not Available Not Available fenofibra te 160 mg tablet take 1 tablet (160 mg) by oral route once daily for 90 days 06/08 completed fenofibr ate 160 mg oral tablet;R ecorded Status: Recorded on: 12/25/19 11 4:01PM;D iscontin ued Status: Disconti nued on: 06/09/19 12 4:42PM;U ser: glascock r;Est. Completi on: 06/17/19 13;Print ed: 12/25/19 11 Not Available Not Available Not Available Adacel (Tdap Adolesn/A dult)(PF) 2Lf-(2.5- 5-3-5mcg) -5 Lf/0.5 mL IM susp 04/01 completed Not Available Not Available Not Available Lyrica 50 mg capsule take 1 capsule (50 mg) by oral route q day for 7 days, then increase to 1 tab bid for 7 days, then increase to 1 tab tid 12/24 completed Lyrica 50 mg oral capsule; Recorded Status: Recorded on: 12/05/19 11 10:08AM; Disconti nued Status: Disconti nued on: 12/25/19 11 2:43PM;U ser: azam; Est. Completi on: 03/04/19 12 Not Available Not Available Not Available chlorhexi dine gluconate 0.12 % mouthwash RINSE WITH 15ML FOR 30 SECONDS AND SPIT USE TWICE DAILY 05/23 completed Not Available Not Available Not Available Horizon Nasal Cpap System 03/03 completed Not Available Not Available Not Available Zostavax (PF) 19,400 unit/0.65 mL subcutane ous suspensio n inject 0.65 millilit er by subcutan eous route daily 12/24 completed Zostavax (PF) 19,400 unit/0.6 5 mL subcutan eous suspensi on for reconsti tution;R ecorded Status: Recorded on: 12/05/19 11 9:28AM;D iscontin ued Status: Disconti nued on: 12/25/19 11 4:01PM;U ser: catalina;Pr inted: 12/05/19 11 Not Available Not Available Not Available olopatadi ne 0.2 % eye drops INSTILL ONE (1) DROP INTO AFFECTED EYE(S) BY OPHTHALM IC ROUTE ONCE DAILY 11/15 completed Not Available Not Available Not Available FeroSul 325 mg (65 mg iron) tablet TAKE 1 TABLET BY MOUTH TWICE DAILY 08/26 completed Not Available Not Available Not Available Mucinex D Maximum Strength 120 mg-1,200 mg tablet,ex tended release Take 1 tablet every 12 hours by oral route. 04/14 completed Not Available Not Available Not Available Mucinex 1,200 mg tablet, extended release take 1 tablet by oral route 2 times a day for 10 days 01/27 completed Mucinex 1,200 mg oral tablet extended release 12hr;Rec orded Status: Recorded on: 06/01/19 14 4:08PM;D iscontin ued Status: Disconti nued on: 01/28/20 15 1:00PM;U ser: grossert ;Est. Completi on: 06/21/19 14;Indic ation: Maxillar y Sinusiti s, Acute - (461.0); Printed: 06/01/19 14 Not Available Not Available Not Available diclofena c 1 % topical gel APPLY 2 GRAMS TO THE AFFECTED AREA(S) BY TOPICAL ROUTE 2 TIMES PER DAY NEEDED 02/12 completed Not Available Not Available Not Available Savella 50 mg tablet take 1 tablet (50 mg) by oral route 2 times per day for 90 days 01/27 completed Savella 50 mg oral tablet;R ecorded Status: Recorded on: 05/19/19 14 3:56PM;D iscontin ued Status: Disconti nued on: 01/28/20 15 1:00PM;U ser: haym;Est . Completi on: 11/15/19 14 Not Available Not Available Not Available Prevnar 13 (PF) 0.5 mL intramusc ular syringe 04/01 completed Not Available Not Available Not Available Suprep Bowel Prep Kit 17.5 gram-3.13 gram-1.6 gram oral solution USE DIRECTED BY OFFICE STAFF 03/03 completed Not Available Not Available Not Available Mens 50+ Daily Formula(g ingko) 1 a daily 03/03 completed Not Available Not Available Not Available Xarelto 20 mg tablet TAKE 1 TABLET BY MOUTH ONCE DAILY 08/26 completed Not Available Not Available Not Available Eliquis 5 mg tablet TAKE ONE (1) TABLET TWICE A DAY BY ORAL ROUTE. active Not Available Not Available No t Available Fluvirin (PF) 45 mcg (15 mcg x 3)/0.5 mL intramusc ular syringe 04/01 completed Not Available Not Available Not Available Accu-Chek Guide test strips USE 1 ONCE DAILY DIRECTED active Not Available Not Available No t Available Accu-Chek Guide Glucose Meter USE ONCE DAILY DIRECTED active Not Available Not Available No t Available Fluzone Quad (P F) 60 mcg(15 mcgx4)/0. 5 mL intramusc ular syringe 04/01 completed Not Available Not Available Not Available Fluzone Quad (P F) 60 mcg(15 mcgx4)/0. 5 mL intramusc ular syringe 05/04 completed Not Available Not Available Not Available Vitals Date Recorded Body height Body mass index (BMI) Body weight Heart rate Oxygen saturation Respiratory rate Pain severity - 0-10 verbal numeric rating [Score] - Reported Systolic And Diastolic Provider Name and Address Organization Details Last Updated DateTime 5 193.04 cm 34.4 kg/m2 782140. 64 g 70 /min 97 % 16 /min 0 132/74 mm[Hg] Delphine Adams [place] - [facility] 5 11:34:47 Social History Question Answer Notes LastModified by Organizat ion Details LastModified Time Tobacco Smoking Status Former Smoker Karla spears [place] - [facility] 04/01/2016 09:03:14 Able To Swim? Yes Information not available 04/14/2023 Do You Have An Advance Directive? No Information not available 04/01/2016 Do You Wear A Helmet When Biking? No Information not available 04/14/2023 Are You Blind Or Do You Have Difficulty Seeing? No Information not available 04/14/2023 What Is Your Level Of Caffeine Consumption? None Information not available 04/01/2016 How Much Tobacco Do You Chew? None Information not available 04/01/2016 In The 14 Days Before Symptom Onset, Have You Had Close Contact With A Laboratory-confir med COVID-19 While That Case Was Ill? No Information not available 04/14/2023 In The 14 Days Before Symptom Onset, Have You Had Close Contact With A Person Who Is Under Investigation For COVID-19 While That Person Was Ill? No Information not available 04/14/2023 Have You Been To An Area Known To Be High Risk For COVID-19? No Information not available 04/14/2023 Are You Deaf Or Do You Have Serious Difficulty Hearing? No Information not available 04/01/2016 What Type Of Diet Are You Following? DIABETIC Information not available 04/14/2023 Which Illicit Or Recreational Drugs Have You Used? None Information not available 04/01/2016 Have You Processed Blood Or Body Fluids From An Ebola Virus Disease Patient Without Appropriate PPE? No Information not available 04/14/2023 Do You Reside In Or Have You Traveled To An Area Where Ebola Virus Transmission Is Active? No Information not available 04/14/2023 What Is The Highest Grade Or Level Of School You Have Completed Or The Highest Degree You Have Received? [id number] Information not available 10/16/2020 Swimming/diving Yes Informati on not available 04/14/2023 Have There Been Any Changes To Your Family Or Social Situation? No Information no t available 04/14/2023 What Is The Fluoride Status Of Your Home? Fluoridated Information not available 04/14/2023 When Did You Quit Smoking? 16+yearsstevie welsh Information not available 10/28/2016 Hard Of Hearing Or Deaf In One Or Both Ears? No Information not available 04/14/2023 Have You Recently Or Are You Planning To Travel To An Area With Zika Virus? No Information not available 04/14/2023 Legally Blind In One Or Both Eyes? No Information no t available 04/14/2023 Live Alone Or With Others? Alone Information not available 04/14/2023 What Was The Date Of Your Most Recent Tobacco Screening? 02/13/2025 Information not available 02/13/2025 How Many Children Do You Have? 2 Information not available 04/14/2023 What Is Your Current Pack Years? 20-29packyears Information not available 04/14/2023 Do You Use Protection During Sex? No Information not available 04/14/2023 Do You Use Protection Against STDs? No Information not available 08/18/2022 What Is Your Relationship Status? Information not available 04/01/2016 Seat Belts Used Routinely Yes Information not available 04/14/2023 Are You Sexually Active? Yes Information not available 04/01/2016 Smoke Alarm In Home Yes Information not available 04/14/2023 Do You Have Smoke And Carbon Monoxide Detectors In Your Home? Yes Information not available 10/16/2020 At What Age Did You Start Smoking Tobacco? 14 Information not available 04/01/2016 Are You Passively Exposed To Smoke? No Information no t available 04/01/2016 How Much Tobacco Do You Smoke? 2 PPD Information not available 04/01/2016 General Stress Level Low Information not available 04/14/2023 Do You Use Sunscreen Routinely? No Information not available 04/01/2016 Has Tobacco Cessation Counseling Been Provided? No Information not available 04/14/2023 How Many Years Have You Smoked Tobacco? 13 Information not available 04/01/2016 Do You Have Difficulty Walking Or Climbing Stairs? No Information not available 04/14/2023 Sex: Male Functional Status Question Answer Note LastModified by Organizat ion Details LastModified Time Do you or have you ever used smokeless tobacco? Never used smokeless tobacco Information not available 09/29/2018 Are you currently employed? No Information not available 04/01/2016 Do you have transportation difficulties? No Information not available 04/14/2023 Are you able to care for yourself independently? Yes Information not available 04/01/2016 Do you have difficulty dressing, bathing, grooming, or toileting? No Information not available 04/14/2023 Do you or have you ever used e-cigarettes or vape? Never used electronic cigarettes Information not available 09/29/2018 What is your exercise level? Moderate Information not available 04/01/2016 Do you use any illicit or recreational drugs? No Information not available 10/16/2020 Do you or have you ever used any other forms of tobacco or nicotine? No Information not available 04/14/2023 What is your level of alcohol consumption? None Former Information not available 04/01/2016 Are you able to walk independently without assistance or assistive devices? YESASSIST Information not available 04/14/2023 Do you have difficulty doing errands alone? No Information not available 04/14/2023 What is your occupation? Disabled Information not available 04/01/2016 Mental Status Question Answer Note LastModified by Organizat ion Details LastModified Time Do you feel stressed (tense, restless, nervous, or anxious, or unable to sleep at night)? [id number] Information not available 10/16/2020 Do you have difficulty concentrating, remembering or making decisions? Yes Short term memory problems Information not available 04/14/2023 Family History Relationship Description Onset Age of this Age Resolved Age Notes LastModified by Organization Details LastModified Time Mother Myocardial infarction Not available 04/01 09:02:56 Medical History Condition Response Pancreatitis N Coronary Artery Disease N Other N Gout N Atrial Fibrillation N congenital heart disease N Blood Diseases N Kidney Stones N Hyperthyroidism N Blood Transfusion N Rheumatoid arthritis N Erectile Dysfunction N amputation N Colonoscopy N Skin Lesions N COPD N Depression N Pneumonia N Incontinence N Murmur N Edema N Alzheimer's Disease N Migraine Headaches N Tobacco Abuse N Anxiety Disorder N Hemorrhoids N Muscle, Joint, or Bone Problems N Obesity Y Vision or Eye Problems N Arthritis N Restless Leg Syndrome N Polyps N Infertility N Mental Disorder N Carpal Tunnel N Acid Reflux (GERD) Y Cancer N Varicosities N Stroke N Tendonitis N Crohn's Disease N Hypercholesterolemia N Skin Cancer N Headaches N Fibromyalgia N Anal Fissure N Irritable Bowel Syndrome N Kidney Disease N Heart Problems N Ear or Hearing Problems N Hospitalizations N Gallstones N Kidney or Bladder Problems N Goiter N Acne N Skin Problems N Eating Disorder N Culp's Esophagus N Hypertriglyceridemia N MRSA exposure N Constipation N Embolism N Vitamin B12 Deficiency N Deviated Septum N Tuberculosis N AIDS/HIV N Myocardial Infarction N Asthma N Mitral Valve Disorders N Vertigo N Hepatitis N Thyroid Cancer N Neuropathy Y Pulmonary Embolism N History of DVT N Herniated Disc N Chronic Ear Infections N Chicken Pox N Autism Spectrum Disorder (ASD) N Von Willebrands Disease N Thrombophilias N Breast Cancer N Hernia N Plantar Fasciitis N Hospital Admission Other Than N Lung Disease N Hypothyroidism N Defects or Inherited Disease N Developmental or Behavioral Disorders N Breast Problem N Difficulty Swallowing N Ovarian Cyst N Anesthesia Complications N Testosterone Deficiency N Meniere's disease N Head Injury/Concussion N Interstitial Cystitis N Congenital Anomalies N Hypoglycemia N Blood clot N Vitamin D Deficiency N Cellulitis N Endometriosis N Fracture N Bladder or Kidney Problems N Liver Disease N Panic Disorder N Schizophrenia N Concussion N Spina Bifida N Allergies/Hayfever N Osteoarthritis Y Parkinson's Disease N Disc Protrusion N STI N Esophagitis N Angina N Thyroid Problems N GI Problems N ADD/ADHD N Anemia N Multiple Sclerosis N Abnormal PAP N Lumbago N Mental Illness N Psychiatric Illness N Diabetes Y Ovarian Cancer N Bedwetting N Degenerative Disc Disease Y Seizures/Epilepsy N Congestive Heart Failure (CHF) N Hyperlipidemia Y Syncope N Insomnia N Eczema N Abuse/Domestic Violence N Attention Deficient Disorder N Diverticulitis N Dementia N Ulcerative colitis N Cerebrovascular Disease N Depression N Guillain-Archer N Sleep Apnea N Aneurysm N Bronchitis N Heart Disease N Suicidal Ideation N Pre-Eclampsia N Hypertension Y Osteoporosis N Immunizations Vaccine Type Date Status Note Provider Nam e and Address Organization Details Recorded Time COVID-19, mRNA, LNP-S, PF, 100 mcg/0.5mL dose or 50 mcg/0.25mL dose 2 completed Not Available [facility] 02/13/2025 13:54:57 COVID-19, mRNA, LNP-S, bivalent, PF, 50 mcg/0.5 mL or 25mcg/0.25 mL dose 2 completed Not Available [facility] 02/13/2025 13:54:57 Pneumococcal conjugate PCV20, polysaccharide [id number] conjugate, adjuvant, PF 2 completed Not Available [facility] 02/13/2025 13:54:57 Influenza, split virus, quadrivalent, PF 2 completed Not Available [facility] 02/13/2025 13:54:57 Influenza, high-dose, quadrivalent, PF 3 completed Not Available [facility] 02/13/2025 13:54:57 COVID-19, mRNA, LNP-S, PF, 50 mcg/0.5 mL 3 completed Not Available [facility] 02/13/2025 13:54:57 Influenza, high-dose, quadrivalent, PF 3 completed Not Available [facility] 02/13/2025 13:54:57 Influenza, high-dose, trivalent, PF 5 completed Not Available [facility] 02/13/2025 13:54:57 Influenza, split virus, quadrivalent, preservative 0 completed Karla [facility] - [facility] 11/22/2019 14:49:42 Pneumococcal conjugate PCV 13 5 completed Not Available [facility] 06/02/2022 10:30:56 influenza, unspecified formulation 8 completed Not Available [facility] 06/02/2022 10:30:55 influenza, unspecified formulation 0 completed Not Available [facility] 06/02/2022 10:30:55 influenza, unspecified formulation 9 completed Not Available [facility] 06/02/2022 10:30:55 influenza, unspecified formulation 1 completed Not Available [facility] 06/02/2022 10:30:55 influenza, unspecified formulation 2 completed Not Available [facility] 06/02/2022 10:30:55 Tdap 2 completed Not Available [facility] 06/02/2022 10:30:56 zoster live 1 completed Not Available [facility] 06/02/2022 10:30:56 Novel [id number], all formulations 0 completed Not Available [facility] 06/02/2022 10:30:56 pneumococcal polysaccharide [id number] 2 completed Not Available [facility] 06/02/2022 10:30:55 Tdap 7 completed Not Available [facility] 06/02/2022 10:30:55 Influenza, split virus, quadrivalent, preservative 7 completed Not Available [facility] 06/02/2022 10:30:55 Influenza, split virus, quadrivalent, preservative 9 completed Not Available [facility] 06/02/2022 10:30:55 SARS-COV-2 (COVID-19) vaccine, UNSPECIFIED 1 completed Not Available [facility] 06/02/2022 10:30:55 SARS-COV-2 (COVID-19) vaccine, UNSPECIFIED 1 completed Not Available [facility] 06/02/2022 10:30:55 SARS-COV-2 (COVID-19) vaccine, UNSPECIFIED 1 completed Not Available [facility] 06/02/2022 10:30:55 zoster, unspecified formulation 1 completed Not Available [facility] 06/02/2022 10:30:55 zoster, unspecified formulation 1 completed Not Available [facility] 06/02/2022 10:30:55 influenza, unspecified formulation 4 completed GABI Garrido - [facility] 11/16/2023 14:23:05 Pneumococcal conjugate PCV20, polysaccharide [id number] conjugate, adjuvant, PF 4 completed GABI Garrido - [facility] 11/16/2023 14:23:27 Past Encounters Encounter ID Performer Location Encounter Start Date Encounter Closed Date Diagnosis/Indication Diagnosis SNOMED-CT Code Diagnosis ICD10 Code Diagnosis IMO Codes Diagnosis Note [id number] Alayna Meneses APRN [place] [id number] [facility] GABI Romeo [id number] 01/10/2025 11:24:04 01/10/2025 11:55:47 Testosterone level below reference range 174623246 R79.89 Continue testo at current dose if results in normal range; F/U 3 months.P atient to return for fasting labs Long-term current use of drug therapy 392563511 Z79.407 [id number] Obese class I [id number] 50990 E66.811 Z68.34 6712999 Hyperlipidemia 33179306 E78.5 Will call with results Prediabetes 488266537 R7 3.03 Will call with results - last A1C 6.7 on 06/20/24 (was previously in prediabete s range) Sleep apnea 22574224 G47 .30 Uses BiPAP nightly currently and benefits from use Health Concerns Section Related Observation LastModified by Organization Detai ls LastModified Time None Recorded Concern Status LastModified by Organization Details LastModified Time None Recorded Payers Encounter Date Sequence Insurance Name Policy Number Policy Rothman Covered Member ID Rothman Member ID Guarantor Name 01/10/2025 1 [facility] (MEDICARE REPLACEMENT/ ADVANTAGE - HMO) James Sagastume [id number] James Sagastume Notes Date Note Type Note Provider Name and Address Organization Details Recorded Time 01/10/2025 text/html ROS as noted in the HPI James is a 69 year old male who is here for a follow-up on decreased testosterone. He continues to take testosterone injections every 2 weeks. He is here today for medication refills. He has a history of HTN, prediabetes and ROLANDO. Chronic conditions reviewed with patient and chronic conditions remain stable. He is fasting for labs today. Last UDS: 01/10/25Last ARTURO: 01/10/25Controlled Substance Agreement on File: YES Alayna Meneses, [employer] [address], [place], [address], [facility] [[email or web address] - [facility] 01/10/2025 11:49:57
--- OUTSIDE RECORDS SUMMARY | 2025-02-18 18:04 | XMS_ITS | Clinical Summary ---
Author Organization [facility] Address [address] [place] [address] Care Team Providers Care Urologist Md Name Role Phone Frank Seth MD Primary Care Provider [phone] Allergies Active Allergy Reactions Criticality Noted Date Comments Latex Rash 11/01/2023 Penicillins Hives High 12/25/[address] (VOLTAREN) 75 MG TBEC 75 mg 2 (two) times daily. 9 Active Multiple Vitamin (MULTIVITAMIN) TABS Take 1 tablet by mouth daily. Active aspirin 81 MG TBEC Take 81 mg by mouth daily. Active memantine (NAMENDA) 10 MG TABS Take 1 tablet by mouth 2 (two) times daily. Active sertraline (ZOLOFT) 50 MG TABS Take 50 mg by mouth daily. 4 Active atorvastatin (LIPITOR) 20 MG TABS Take 20 mg by mouth daily. Active ELIQUIS 5 MG tablet Take 5 mg by mouth 2 (two) times daily. 5 Active lisinopril (PRINIVIL,ZESTR IL) 5 mg TABS Take 5 mg by mouth daily. Active metFORMIN (GLUCOPHAGE) 500 MG TABS Take 1 tablet by mouth 2 (two) times daily. [address] (PROTONIX) 40 MG TBEC Take 40 mg by mouth daily. Active donepezil (ARICEPT) 10 MG TABS Take 10 mg by mouth. 5 Active Testosterone Cypionate 200 MG/ML SOLN Apply 200 IR/day topically daily. 5 Active mirtazapine (REMERON) 15 mg tablet Take 15 mg by mouth at bedtime. 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 05/01/2021 Essential hypertension 04/01/2016 Overview (05/31/2024): Removal Reason: resolved Family History Medical History Relation Name Comments Alcohol abuse Father Heart Attack Mother Relation Name Status Comments Father Mother Social History Tobacco Use Types Packs/Day Years Used Date Smoking Tobacco: Former Cigarettes 0 Q uit: 1982 Tobacco Cessation:Counseling Given: Not Answered Alcohol Use Standard Drinks/Week Comments Not Currently 0 (1 standard drink = 0.6 oz pur e alcohol) Sex and Gender Information Value Date Recorded Sex Assigned at Not on file Legal Sex Male 10:00 AM EDT Gender Identity Not on file Sexual Orientation Not on file Last Filed Vital Signs Vital Sign Reading Time Taken Comments Blood Pressure 140/80 10/30/2024 10:58 AM EDT Pulse 60 10/30/2024 10:58 AM EDT Temperature 36.4 C (97.5 F) 06/29/2024 11:46 AM EDT Respiratory Rate 16 10/30/2024 10:5 8 AM EDT Oxygen Saturation 97% 10/30/2024 10: 58 AM EDT Inhaled Oxygen Concentration - - Weight 128.7 kg (283 lb 12.8 oz) 2024 10:58 AM EDT Height 193 cm (6' 4 ) 10/30/2024 10:58 AM EDT Body Mass Index 34.55 10/30/2024 10:58 AM EDT Plan of Treatment Upcoming Encounters Date Type Department Care Team (Late st Contact Info) Description 02/19/2025 8:00 PM EST Hospital Encounter [facility] [id number] [place] [phone] Beverley Quintana MD [address] [place] [address] Health Maintenance Due Date Last Done Comments Hepatitis C Screening 1955 Abdominal Aortic Aneurysm Screening 1955 Colonoscopy 2002 PSA YEARLY 07/07/2007 DTap,Tdap,and Td (3 - Td or Tdap) 10/22/2026 10/22/2016, 12/01/2011 RSV Vaccine (60+ or ) (1 - 1-dose 75+ series) 2032 Shingrix Completed 11/04/2020, 09/04/2020 Pneumococcal 0-49 Discontinued 11/09/2023, , 12/04/2014, Additional history exists Pneumococcal 50+ Completed 11/09/2023, , 12/04/2014, Additional history exists Influenza Vaccine Completed 01/01/2025, , 12/23/2022, Additional history exists HPV (No Doses Required) Completed Meningococcal conjugate valent 4 (MCV4) Aged Out No longer eligible based on patient's age to complete this topic RSV Immunization (<20 months) Aged Out No longer eligible based on patient's age to complete this topic Medical Devices Implanted Type Area Human Resources Technician Device Identifier Shelf Expiration Date Model / Serial / Lot Pulse Generator Implanted:Qty: 1 on 06/29/2024 by Micah Hobson MD at [facility] N/A: Chest Wall Inspire Sleep Apnea [place] 11/15/2026 [id number] / [id number] / Stimulation Lead Implanted:Qty: 1 on 06/29/2024 by Micah Hobson MD at [facility] N/A: Chest Wall Inspire Sleep Apnea [place] 07/31/2026 [id number] / [id number] / Sensing Lead Implanted:Qty: 1 on 06/29/2024 by Micah Hobson MD at [facility] N/A: Chest Wall Inspire Sleep Apnea [place] 12/25/2026 [id number] / [id number] / Insurance [facility] Care Teams Urologist Md Relationship Specialty Start Date End Date Frank Seth MD PCP - General Family Medicine 12/25/18
--- OUTSIDE RECORDS SUMMARY | 2025-02-18 18:04 | XMS_ITS | Encounter Summary ---
Author Organization [facility] Address [address] [place] [address] Phone Care Team Providers Care Educational Aid Name Role Phone Frank Seth MD Primary Care Provider [phone] Encounter Details Date Type Department Care Team (Late st Contact Info) Description 10/24/2023 [facility] [address] [place] [address] Micah Hobson MD [address] [place] [phone] Social History Tobacco Use Types Packs/Day Years [...] Hospital Encounter [facility] [address] [place] [phone] Beverley Quintana MD [address] [address] documented as of this encounter Visit Diagnoses Not on filedocumented in this encounter Care Teams Educational Aid Relationship Specialty Start Date End Date Frank Seth MD PCP - General Family Medicine 12/25/18 documented as of this encounter
--- OUTSIDE RECORDS SUMMARY | 2025-02-18 18:04 | XMS_ITS | Referral Summary ---
Author Organization [facility] ([place], [place], [place], [place], [place]) Address [address] [place] [address] Care Team Providers Care Employment Specialist/Program Manager Name Role Phone Frank Seth MD Primary Care Provider [phone]- [phone] Allergies Active Allergy Reactions Criticality Noted Date [...] Daily, # 30 Tab, 0 Refill(s), Pharmacy: [facility] [id number], 193.04, cm, 05/07/21 4:15:00 [...] Date Chaka rded Speak language other than Grenadian at home Not on file 03/18/2023 Want [...] 07/27/2023 2:35 PM EDT Plan of Treatment Not on file Insurance [facility] Care Teams Employment Specialist/Program Manager Relationship Specialty Start Date End Date Frank Seth MD [address] [place] [address] Dr Bethea [address] [place] [phone] PCP - General Family Medicine 06/02/22
--- OUTSIDE RECORDS SUMMARY | 2025-02-18 18:04 | XMS_ITS | Encounter Summary ---
Author Organization [facility] Address [address] [place] [address] Phone Care Team Providers Care Customer Technical Services Manager Name Role Phone Frank Seth MD Primary Care Provider [phone]- [phone] Encounter Details Date Type Department Care Team (Late st Contact Info) Description 11/03/2023 [facility] [address] [place] [address] Micah Hobson MD [address] [place] [address] Social History Tobacco Use Types [...] st Contact Info) Description 02/19/2025 8:00 PM [facility] Hospital Encounter [facility] [address] [place] [address] Beverley Quintana MD [address] [place] [address] documented as of this encounter Visit Diagnoses Not on filedocumented in this encounter Care Teams Customer Technical Services Manager Relationship Specialty Start Date End Date Frank Seth MD PCP - General Family Medicine 12/25/18 documented as of this encounter
--- OUTSIDE RECORDS SUMMARY | 2025-02-18 18:05 | XMS_ITS | Clinical Summary ---
Author Organization [facility] Address [address] [place] [address] Phone Care Team Providers Care Hog Slaughterer Name Role Phone Frank Seth Primary Care Provider [phone] Allergies Active Allergy Reactions Criticality Noted Date Comments Latex Rash 04/11/2023 Penicillins Hives Medium 03/26/2021 Medications diclofenac (VOLTAREN) 75 mg Oral Tablet, Delayed Release (E.C.) Take 75 mg by mouth 2 times daily. 09/29/2018 Active traZODone (DESYREL) 50 mg Oral Tablet Take 100 mg by mouth nightly. Active atorvastatin (LIPITOR) 20 mg Oral Tablet Take 20 mg by mouth daily. Active donepeziL (ARICEPT) 10 mg Oral Tablet Take 10 mg by mouth daily. Active memantine (NAMENDA) 10 mg Oral Tablet Take 10 mg by mouth 2 times daily. Active sertraline (ZOLOFT) 50 mg Oral Tablet Take 50 mg by mouth daily. Active aspirin 81 mg Oral Tablet, Delayed Release (E.C.) Take 81 mg by mouth daily. Active MEN'S MULTI-VITAMIN ORAL Take 1 Tablet by mouth daily. Active oxyCODONE-aceta minophen (PERCOCET) 5-325 mg Oral Tablet Take 1-2 Tablets by mouth every 4 hours as needed for Acute Pain (R52). 36 Tablet 04/25/2023 Active Active Problems Problem Noted Date Diagnosed Date Localized osteoarthritis of left shoulder 2023 Acute pain of right shoulder 03/26/2021 Strain of right shoulder 03/26/2021 Surgical History Surgery Date Site/Laterality Comments CORONARY ARTERY BYPASS GRAFT HIP SURGERY Bilateral REPLACEMENTS KNEE SURGERY Bilateral REPLACEMENTS TOTAL ANKLE ARTHROPLASTY Right GASTRIC BYPASS SURGERY 02/28/2011 - 02/28/2012 HEMORRHOID SURGERY LEG SURGERY 16 LEG SURGERIES D/T BEING RAN OVER CHILD SHOULDER ARTHROPLASTY 04/25/2023 Shoulder/Left LEFT Posterior Total Shoulder Arthroplasty, Biceps Tenodesis; Surgeon: Martina Nelson MD; Location: [facility] MAIN OR; Service: Orthopedics Medical devices from this surgery are in the Medical Devices section. Medical History Medical History Date Comments Sleep apnea BIPAP CAD (coronary artery disease) CA BG 2021 Hyperlipidemia Arthritis Family History Medical History Relation Name Comments Anesth Problems Neg Hx Relation Name Status Comments Father Mother Social History Tobacco Use Types Packs/Day Years Used Date Smoking Tobacco: Never Smokeless Tobacco: Never Tobacco Cessation:Counseling Given: Not Answered Alcohol Use Standard Drinks/Week Comments Not Currently 0 (1 standard drink = 0.6 oz pur e alcohol) Sex and Gender Information Value Date Recorded Sex Assigned at Not on file Legal Sex Male 8:25 AM EST Gender Identity Not on file Sexual Orientation Not on file Last Filed Vital Signs Vital Sign Reading Time Taken Comments Blood Pressure 130/93 04/25/2023 4:28 PM EST Pulse 68 04/25/2023 4:28 PM EST Temperature 36.1 C (97 F) 04/25/2023 4:28 PM EST Respiratory Rate 16 04/25/2023 4:28 PM EST Oxygen Saturation 97% 04/25/2023 4:28 PM EST Inhaled Oxygen Concentration - - Weight 135.4 kg (298 lb 6.4 oz) 024 12:02 PM EST Height 193 cm (6' 4 ) 04/25/2023 12:02 PM EST Body Mass Index 36.32 04/25/2023 12:02 PM EST Plan of Treatment Upcoming Encounters Date Type Department Care Team (Late st Contact Info) Description 03/12/2025 10:00 AM EST Office Visit Avani Reed [address] [address] Jazmín Blum PA [address] [place] [address] Health Maintenance Due Date Last Done Comments Wellness Exam Medicare 1958 Hepatitis C Screening 07/07/1975 Colonoscopy 2002 FIT 2002 Sigmoidoscopy 2002 Virtual Colonography 2002 DTaP/TDaP/Td (2 - Td or Tdap) 11/30/2021 12/01/2011 Cologuard 12/05/2022 12/06/2019 Colon Cancer Screening 12/05/2022 COVID-19 Vaccine ( season) 2024 12/23/2022, 11/10/2021, 06/26/2021, Additional history exists Influenza Vaccine (#1) 2024 , 11/16/2022, 11/19/2021, Additional history exists Zoster Completed 11/04/2020, 09/04/2020 Pneumococcal Vaccine 50+ Completed 022, 12/01/2011, 11/29/2011 Hepatitis B Vaccine Aged Out No longe r eligible based on patient's age to complete this topic Meningococcal B Vaccine Aged Out No l onger eligible based on patient's age to complete this topic Medical Devices Implanted Type Area Mailroom Manager Device Identifier Shelf Expiration Date Model / Serial / Lot Bilateral Mike Bilateral Tka R Ankle Replacement Cement Refobacin 1x40 Gm Hvisc Bn Gent Lf - [id number] Implanted:Qty: 1 on 04/25/2023 by Martina Nelson MD at [facility] Left: Shoulder FAZAL:FAZAL [id number] 08/27/2025 [id number] / / [id number] Component Nucleus Simpliciti Sz 2 - [id number] Implanted:Qty: 1 on 04/25/2023 by Martina Nelson MD at [facility] Left: Shoulder TORNIER [id number] 07/07/2027 [id number] / [id number] 1 / Comp 52mm Reunion Von Fx Pgx3 F/T/S Arthpl Strl - [id number] Implanted:Qty: 1 on 04/25/2023 by Martina Nelson MD at [facility] Left: Shoulder INDRA:ORTHOPE DICS [id number] 08/16/2026 [id number] / / [id number] Head Hum 18mm 56mm Shldr Sft Tis Bal Simpliciti Strl Lf - [id number] Implanted:Qty: 1 on 04/25/2023 by Martina Nelson MD at [facility] Left: Shoulder TORNIER 11/26/2027 [id number] / [id number] / Insurance [employer] MEDICARE MR [employer] MEDICARE MR [employer] MEDICARE MR Care Teams Hog Slaughterer Relationship Specialty Start Date End Date Frank Seth [address] [place] [phone] PCP - General Family Medicine 04/25/23
--- OUTSIDE RECORDS SUMMARY | 2025-02-18 18:05 | XMS_ITS | Continuity of Care Document ---
Author Organization [facility] Address [address] [place] [address] Assessment No assessment recorded. Plan of Treatment Reminders Order Date Submit Date Provider Last Modified By Organization Details Last Modified Time Details Appointments Establish ed Patient 2025 11:30A M Frank Seth MD Not available Not available Not available Follow Up 2025 11:00A M Alayna Meneses APRN Not available Not available Not available Establish ed Patient 2025 10:50A M Frank Seth MD Not available Not available Not available Lab None recorded. Referral None recorded. Procedures None recorded. Surgeries None recorded. Imaging None recorded. Medication Orders tizanidin e 4 mg tablet 2024 025 [facility], [address] [place] [address] , [place], [address], 02/13/2025 14:28:47 Patient TargetsNo targets recorded. Patient Instructions Encounter Date Encounter Id Patient Instructions Last Modified By Organization Details Last Modified Time 02/13/2025 [id number] When You Want to Lose Weight: Care Instructions [email or web address] Not available 02/13/2025 14:33:59 body mass index: care instructions [email or web address] Not available 02/13/2025 14:28:46 learning about healthy weight [email or web address] Not available 02/13/2025 14:28:46 Reason for Referral None Reported. Problems Name Problem SNOMED Code Status Onset Date Resolution Date Notes Provider Name and Address Organization Details Recorded Time History of cardiac catheter ization 41808183189 100 Active Not Available [facility] 04/05/202 3 10:30:55 Degenera tion of lumbosac ral interver tebral disc 59687748 Active 2016 Not Available [facility] 3 10:30:55 Type 2 diabetes mellitus 04889685 Completed 201604/01/2016 Removal Reason: resolved Frank Seth MD [address], [place], [address] , [place] - [facility] 3 16:05:55 Gastroes ophageal reflux disease without esophagi tis 953884364 Active 2016 Not Available [facility] 3 10:30:55 Hyperlip idemia 46996554 Completed 201604/01/2016 Removal Reason: resolved Frank Seth MD [address], [place], [address] , [place] - [facility] 1 13:34:08 [facility] 49071494 Completed 201604/01/2016 Removal Reason: resolved Frank Seth MD [address], [place], [address] , [place] - [facility] 7 09:29:58 Obesity 276478387 Active 2016 Not Available [facility] 3 10:30:55 Osteoart hritis 993732465 Active 2016 Not Available [facility] 3 10:30:55 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 71984951 Completed 201604/01/2016 Removal Reason: resolved Frank Seth MD [address], [place], [address] , [place] - [facility] 7 09:29:42 Sleep apnea 48679670 Active 2019 Not Available [facility] 3 10:30:55 Exposure to SARS-CoV -2 Active 2020 Not Available [facility] 3 10:30:55 Testoste candida level below referenc e range 200431717 Active 2020 Not Available [facility] 3 10:30:55 Hyperlip idemia 59357613 Active 2020 Not Available [facility] 3 10:30:55 History of coronary artery bypass grafting 074799082 Active 2021 Not Available [facility] 3 10:30:55 Contract ure of neck of urinary bladder 80625106135 103 Active 2021 Not Available [facility] 3 10:30:55 Coronary arterios clerosis 25381041 Active 2021 Not Available [facility] 3 10:30:55 Memory impairme nt 643481226 Active 2021 Not Available [facility] 3 10:30:55 Prediabe laron 103495761 Active 2022 Alayna Meneses APRN [address], [place], [address] , [facility] - [facility] 3 10:22:30 Hypotest osteroni sm 84990074596 04 Active 2024 Frank Seth MD [address], [place], [address] , [facility] - [facility] 5 09:14:18 Atrial fibrilla tion 09445008 Active 2024 Frank Seth MD [address], [place], [address] , [facility] - [facility] 5 09:17:07 Problem Notes None recorded. Procedures Surgical History Date Name Laterality Status Provider Name and Address Organization Details Recorded Time 04/25/19 25 Pacemaker Placement completed Delphine Adams [place] - [facility] 06/20/2024 11:00:32 11/16/19 24 Advance Care Planning completed Karla Patricio [place] - [facility] 11/16/2023 14:16:22 11/16/19 24 Functional Status Assessed completed Karla Patric[place] - [facility] 11/16/2023 14:16:22 04/25/19 24 Shoulder joint surgery completed Delphine [place] - [facility] 05/03/2023 10:32:15 08/27/19 22 Advance Care Planning completed Griselda Morris RN [address], [place], [address], [facility] - [facility] 08/17/2021 15:16:24 08/27/19 22 Functional Status Assessed completed Griselda Morris RN [address], [place], [address], [place] - [facility] 08/17/2021 15:07:44 05/15/19 22 Medication Reconcilliation completed Karla Patricio [place] - [facility] 05/14/2021 13:42:09 05/02/19 22 coronary artery bypass graft completed Karla Patricio [place] - [facility] 05/14/2021 13:49:40 08/23/19 21 Advance Care Planning completed Karla Hay [place] - [facility] 08/22/2020 09:54:04 08/23/19 21 Functional Status Assessed completed Karla Hay [place] - [facility] 08/22/2020 09:54:04 02/26/20 20 Colonoscopy completed Griselda Morris RN [address], [place], [address], [place] - [facility] 06/23/2020 15:07:33 01/09/20 20 Diastolic B/P 80-89 mm Hg completed Karla Hay [place] - [facility] 01/09/2020 13:18:34 01/09/20 20 Systolic B/P 130-139 mm Hg completed Karla Hay [place] - [facility] 01/09/2020 13:18:28 01/09/20 20 Excision Benign Lesion completed Frank Seth MD [address], [place], [address], [place] - [facility] 01/09/2020 13:46:29 11/22/19 20 Diastolic B/P greater than or equal to 90 mm Hg completed Karla [place] - [facility] 11/22/2019 14:18:58 11/22/19 20 Systolic B/P greater than or equal to 140 mm Hg completed [facility] [place] - [facility] 11/22/2019 14:18:53 04/12/19 20 Cerumen Removal completed Frank Seth MD [address], [place], [address], [place] - [facility] 04/12/2019 13:27:25 04/12/19 20 Diastolic B/P greater than or equal to 90 mm Hg completed Karla [place] - [facility] 04/12/2019 13:00:14 04/12/19 20 Systolic B/P 130-139 mm Hg completed [facility] [place] - [facility] 04/12/2019 13:00:03 Ankle arthroscopy/surgery completed Karla Oseguera [facility] 04/01/2016 09:15:25 Gastric Bypass completed Karla Oseguera [facility] 04/01/2016 09:05:01 Hip Replacement completed Karla Oseguera [facility] 04/01/2016 09:05:16 Knee Surgery completed Karla Oseguera [facility] 04/01/2016 09:05:49 Unlisted px femur/knee completed Karla Oseguera [facility] 04/01/2016 09:06:06 Imaging Results None recorded. Procedure Notes None recorded. Medical Equipment None Reported. Allergies Allergen ID Allergen Name Allergen Category Reaction Reaction Severity Criticality Documentation Date Start Date Code Code System Note Provider Name and Address Organization Details Recorded Time 182610 adhesive tape environme nt,medica tion Not available Not available Not available 05/14/[address] [facility] 2 13:43:52 873139 latex environme nt,medica tion Not available Not available Not available 06/02/20222022 78965 91 RxNorm GABI Velasquez [facility] 3 10:32:45 353921 Latex (substanc e) environme nt,medica tion rash Not available [facility] 02/13/20252022 71354 8007 SNOMED Not Available burns - External Data Service - prod 5 13:54:33 69055 Product containin g penicilli n (product) medicatio n Not available Not available Not available 12/05/20152007 85273 8001 SNOMED Not Available [facility] 6 09:55:42 Medications Name Sig Start Date [...] Disconti nued on: 05/21/19 11 4:17PM;U ser: jin ;Est. Completi on: 10/21/19 11;Print ed: 04/23/19 [...] Disconti nued on: 03/05/19 10 2:37PM;U ser: grossert ;Est. Completi on: 04/21/19 10;Print ed: 10/24/19 09 [...] on: 06/09/19 13 4:23PM;U ser: estepl;E st. Completi on: 05/04/19 13 Not Available Not Available [...] nued on: 10/24/19 09 11:31AM; User: jin ;Est. Completi on: 11/07/19 09;Indic ation: Restless Legs [...] Disconti nued on: 08/20/19 16 1:26PM;U ser: jin ;Est. Completi on: 02/28/19 17;Indic ation: Acne [...] Disconti nued on: 12/17/19 12 10:55AM; User: [email or web address];Pr inted: 12/14/19 12 Not Available Not Available [...] nued on: 06/09/19 12 4:42PM;U ser: grisel peoples;Est. Completi on: 06/22/19 12;Print ed: [...] Prevacid 30 mg oral capsule, delayed release( /JULIEN);R ecorded Status: Recorded on: 12/25/19 11 4:01PM;D [...] on: 12/06/19 12;Indic ation: Allergic Rhinitis - ();Prin marlene: 06/09/19 12 Not Available Not Available [...] Available Not Available Nasonex 50 mcg/actua tion Stow 1 sniff bilat bid 01/27 completed Nasonex [...] nued on: 05/07/19 12 10:46AM; User: grisel [email or web address] Completi on: 06/22/19 12;Print ed: 12/25/19 11 [...] HOURS BY ORAL ROUTE FOR 10 DAYS. 01/22 /2025 completed Not Available Not Available Not Available [...] Disconti nued on: 12/05/19 11 8:24AM;U ser: wendi;Est . Completi on: 11/21/19 11 Not Available [...] Disconti nued on: 03/23/19 12 2:56PM;U ser: wendi;Est . Completi on: 07/19/19 12;Print ed: 01/21/20 11 Not Available Not Available Not Available fenofibra te 160 mg tablet take 1 tablet (160 mg) by oral route once daily for 90 days 06/08 completed fenofibr ate 160 mg oral tablet;R ecorded Status: Recorded on: 12/25/19 11 4:01PM;D iscontin ued Status: Disconti nued on: 06/09/19 12 4:42PM;U ser: grisel peoples;Est. Completi on: 06/17/19 13;Print ed: 12/25/19 11 [...] Disconti nued on: 12/25/19 11 4:01PM;U ser: [email or web address];Pr inted: 12/05/19 11 Not Available Not Available [...] Details Last Updated DateTime 5 193.04 cm 34.7 kg/m2 350177. 83 g 80 /min 98 % 18 /min 0 134/80 mm[Hg] Karla Patricio [place] - [facility] 14:01:44 Social History Question Answer Notes LastModified by Organizat ion Details LastModified Time Tobacco Smoking Status Former Smoker GABI Garrido - [facility] 04/01/2016 09:03:14 Able To Swim? [...] Or The Highest Degree You Have Received? [id number] Information not available 10/16/2020 Swimming/diving Yes Informati [...] anxious, or unable to sleep at night)? [id number] Information not available 10/16/2020 Do you have difficulty concentrating, remembering or making decisions? Yes Short term memory problems Information not available 04/14/2023 Family History Relationship Description Onset Age of this Age Resolved Age Notes LastModified by Organization Details LastModified Time Mother Myocardial infarction Not available 02/02 /2017 09:02:56 Medical History Condition Response Pancreatitis N Coronary Artery Disease N Other N Gout N Atrial Fibrillation N congenital heart disease N Kidney Stones N Blood Diseases N Hyperthyroidism N Rheumatoid arthritis N Blood Transfusion N Erectile Dysfunction N amputation N Colonoscopy N Skin Lesions N Depression N COPD N Pneumonia N Incontinence N Murmur N Edema N Alzheimer's Disease N Migraine Headaches N Tobacco Abuse N Anxiety Disorder N Muscle, Joint, or Bone Problems N Hemorrhoids N Obesity Y Vision or Eye Problems N Restless Leg Syndrome N Arthritis N Polyps N Infertility N Mental Disorder N Carpal Tunnel N Acid Reflux (GERD) Y Cancer N Varicosities N Stroke N Tendonitis N Crohn's Disease N Hypercholesterolemia N Skin Cancer N Headaches N Fibromyalgia N Irritable Bowel Syndrome N Anal Fissure N Kidney Disease N Heart Problems N [...] D Deficiency N Cellulitis N Endometriosis N Bladder or Kidney Problems N Fracture N Liver Disease N Schizophrenia N Panic Disorder N Concussion N Spina Bifida N Allergies/Hayfever N Osteoarthritis Y Parkinson's Disease N Disc Protrusion N STI N Esophagitis N Angina N Thyroid Problems N GI Problems N ADD/ADHD N Anemia N Multiple Sclerosis N Abnormal PAP N Lumbago N Mental Illness N Psychiatric Illness N Ovarian Cancer N Diabetes Y Bedwetting N Degenerative Disc Disease Y Seizures/Epilepsy N Congestive Heart Failure (CHF) N Syncope N Hyperlipidemia Y Insomnia N Eczema N Abuse/Domestic Violence N Attention Deficient Disorder N Dementia N Diverticulitis N Ulcerative colitis N Cerebrovascular Disease N Depression N Guillain-[place] N Sleep Apnea N Aneurysm N Bronchitis N Heart Disease N Suicidal Ideation N Pre-Eclampsia N Hypertension Y Osteoporosis N Immunizations Vaccine Type Date Status Note Provider Nam e and Address Organization Details Recorded Time COVID-19, mRNA, LNP-S, PF, 100 mcg/0.5mL dose or 50 mcg/0.25mL dose 2 completed Not Available [facility] 02/13/2025 13:54:57 COVID-19, mRNA, LNP-S, bivalent, PF, 50 mcg/0.5 mL or 25mcg/0.25 mL dose 2 completed Not Available [facility] 02/13/2025 13:54:57 Pneumococcal conjugate PCV20, polysaccharide [id number] conjugate, adjuvant, PF 2 completed Not Available [facility] 02/13/2025 13:54:57 Influenza, split virus, quadrivalent, PF 2 completed Not Available [facility] 02/13/2025 13:54:57 Influenza, high-dose, quadrivalent, PF 3 completed Not Available [facility] 02/13/2025 13:54:57 COVID-19, mRNA, LNP-S, PF, 50 mcg/0.5 mL 3 completed Not Available [facility] 02/13/2025 13:54:57 Influenza, high-dose, quadrivalent, PF 3 completed Not Available [facility] 02/13/2025 13:54:57 Influenza, high-dose, trivalent, PF 5 completed Not Available [facility] 02/13/2025 13:54:57 Influenza, split virus, quadrivalent, preservative 0 completed Karla [facility] [place] - [facility] 11/22/2019 14:49:42 Pneumococcal conjugate PCV 13 5 completed Not Available [facility] 06/02/2022 10:30:56 influenza, unspecified formulation 8 completed Not Available [facility] 06/02/2022 10:30:55 influenza, unspecified formulation 0 completed Not Available [facility] 06/02/2022 10:30:55 influenza, unspecified formulation 9 completed Not Available [facility] 06/02/2022 10:30:55 influenza, unspecified formulation 1 completed Not Available [facility] 06/02/2022 10:30:55 influenza, unspecified formulation 2 completed Not Available [facility] 06/02/2022 10:30:55 Tdap 2 completed Not Available [facility] 06/02/2022 10:30:56 zoster live 1 completed Not Available [facility] 06/02/2022 10:30:56 Novel [id number], all formulations 0 completed Not Available [facility] 06/02/2022 10:30:56 pneumococcal polysaccharide PPV23 2 completed Not Available [facility] 06/02/2022 10:30:55 Tdap 7 completed Not Available [facility] 06/02/2022 10:30:55 Influenza, split virus, quadrivalent, preservative 7 completed Not Available [facility] 06/02/2022 10:30:55 Influenza, split virus, quadrivalent, preservative 9 completed Not Available [facility] 06/02/2022 10:30:55 SARS-COV-2 (COVID-19) vaccine, UNSPECIFIED 1 completed Not Available [facility] 06/02/2022 10:30:55 SARS-COV-2 (COVID-19) vaccine, UNSPECIFIED 1 completed Not Available [facility] 06/02/2022 10:30:55 SARS-COV-2 (COVID-19) vaccine, UNSPECIFIED 1 completed Not Available [facility] 06/02/2022 10:30:55 zoster, unspecified formulation 1 completed Not Available [facility] 06/02/2022 10:30:55 zoster, unspecified formulation 1 completed Not Available [facility] 06/02/2022 10:30:55 influenza, unspecified formulation 4 completed GABI Garrido - [facility] 11/16/2023 14:23:05 Pneumococcal conjugate PCV20, polysaccharide [id number] conjugate, adjuvant, PF 4 completed GABI Garrido - [facility] 11/16/2023 14:23:27 Past Encounters Encounter ID Performer Location Encounter Start Date Encounter Closed Date Diagnosis/Indication Diagnosis SNOMED-CT Code Diagnosis ICD10 Code Diagnosis IMO Codes Diagnosis Note [id number] Frank Seth MD [address] [place] [address] 02/13/2025 13:54:02 02/13/2025 14:29:52 Hypotestosteronism 4875189801 104 R89.1 Memory impairment 392010 006 R41.3 Atrial fibrillation 4943 6004 I48.91 Coronary arteriosclerosis 57378055 I25.10 Prediabetes 630719509 R7 3.03 Hyperlipidemia 16136544 E78.5 controlled History of coronary artery bypass grafting 374256009 Z95.1 Degenerati on of lumbosacral intervertebral disc 38905253 M51.379 Gastroesop hageal reflux disease without esophagitis 042388602 K21.9 controlled Obesity 204527580 E66.9 Osteoarthritis 934062661 M19.90 Sleep apnea 05066582 G47 .30 controlled Cramp 43126860 R25.2 19215 Body mass index 30+ - obesity 778255231 Z68.34 [id number] Health Concerns Section Related Observation LastModified by Organization Detai ls LastModified Time None Recorded Concern Status LastModified by Organization Details LastModified Time None Recorded Payers Encounter Date Sequence Insurance Name Policy Number Policy Rothman Covered Member ID Rothman Member ID Guarantor Name 02/13/2025 1 [facility] (MEDICARE REPLACEMENT/ ADVANTAGE - HMO) James Sagastume [id number] James Sagastume Notes Date Note Type Note Provider Name and Address Organization Details Recorded Time 02/13/2025 text/html C/O leg and hand muscle cramps day and night. 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 Had recent labs and all normal. Frank Seth MD [address], [place], [address], [place] - [facility] 02/13/2025 14:29:24
--- OUTSIDE RECORDS SUMMARY | 2025-02-18 18:05 | XMS_ITS | Data Portability ---
Author Organization [facility] Address [address] [place] [address] Assessment No assessment recorded. Plan of Treatment [...] HbA1c (hemoglob in A1c), blood 2024 025 [facility], [address] [place] [address], [id number], 01/11/2025 11:14:15 CMP, serum or plasma [address], [address], 01/11/2025 11:14:13 microalbu min/creat inine, mass ratio, urine 2024 025 [facility], [address] [place] [address] , [place], [address], 01/10/2025 11:58:56 unlisted lab - toxassure flex 22, urine [address], [address], 01/16/2025 20:10:50 lipid panel, serum 2024 025 [facility], [address] [place] [address], [id number], 01/11/2025 11:14:14 CBC w/ auto diff 2024 025 [facility], [address] [place] [address], [id number], 01/11/2025 11:14:12 TSH + free T4, serum 2024 025 [facility], [address] [place] [address], [id number], 01/11/2025 11:14:11 testoster one, total, serum 2024 025 [facility], [address] [place] [address], [id number], 01/11/2025 11:14:16 PSA, total, serum or plasma 2024 025 [facility], [address] [place] [address], [id number], 01/11/2025 11:14:17 testoster one, total, serum 2024 025 [facility], [address] [place] [address], [id number], 06/21/2024 11:26:23 PSA, total, serum or plasma 2024 025 [facility], [address] [place] [address], [id number], 06/21/2024 11:26:24 BMP, serum or plasma 2024 025 [email or web address], [address] [place] [address], [id number], 06/27/2024 06:54:08 HbA1c (hemoglob in A1c), blood 2024 025 [facility], [address] [place] [address], [id number], 06/21/2024 11:26:23 lipid panel, serum 2024 025 [facility], [address] [place] [address], [id number], 06/21/2024 11:26:22 CMP, serum or plasma [address] [facility], [address] [place] [address], [id number], 06/21/2024 11:26:21 CBC w/ auto diff [address] [facility], [address] [place] [address], [id number], 06/21/2024 11:26:20 HbA1c (hemoglob in A1c), blood [address] [facility], [address] [place] [address], [id number], 03/24/2024 12:09:18 testoster one, free + total, serum [address] [facility], [address] [place] [address], [id number], 03/24/2024 12:09:18 Referral None recorded. Procedures None recorded. Surgeries None recorded. Imaging None recorded. Medication Orders tizanidin e 4 mg tablet 2024 025 [facility], [facility] [address], [place], [address], 02/13/2025 14:28:47 testoster one cypionate 200 mg/mL intramusc ular oil 2024 025 [facility], [address], [place], [address], 01/10/2025 11:38:06 donepezil 10 mg tablet 2024 025 [facility], [address], [place], [address], 09/19/2024 09:01:42 memantine 10 mg tablet 2024 025 [facility], [address], [place], [address], 09/19/2024 09:01:42 diclofena c sodium 75 mg tablet,de layed release 2024 025 [facility], [address], [place], [address], 09/19/2024 09:01:39 metformin 500 mg tablet 2024 [facility], [address] [place], [address], 09/19/2024 09:01:41 atorvasta tin 40 mg tablet 2024 025 [facility], [address] [place], [address], 09/19/2024 09:01:39 mirtazapi ne 15 mg tablet 2024 025 [facility], [address] [place], [address], 09/19/2024 09:01:43 pantopraz ole 40 mg tablet,de layed release 2024 025 [facility], [address] [place], [address], 09/19/2024 09:01:41 sertralin e 100 mg tablet 2024 025 [facility], [address] [place] [address] , [place], [address], 09/19/2024 09:01:40 donepezil 10 mg tablet [address], [address], 03/21/2024 09:18:54 memantine 10 mg tablet [address], [address], 03/21/2024 09:18:53 trazodone 50 mg tablet [address], [address], 07/25/2024 10:48:54 metformin 500 mg tablet [address], [address], 03/21/2024 09:18:54 atorvasta tin 20 mg tablet [address], [address], 04/09/2024 14:08:00 diclofena c sodium 75 mg tablet,de layed release [address], [address], 03/21/2024 09:18:54 pantopraz ole 40 mg tablet,de layed release [address], [address], 03/21/2024 09:18:53 Eliquis 5 mg tablet [address], [address], 09/19/2024 08:44:03 sertralin e 100 mg tablet [address]24 [address] [address], [address], 03/21/2024 09:18:55 Patient TargetsNo targets recorded. Patient Instructions Encounter Date Encounter Id Patient Instructions Last Modified By Organization Details Last Modified Time 03/21/2024 [id number] learning about type 2 diabetes tgrosser Not available 03/21/2024 09:14:29 type 2 diabetes: care instructions tgrosser Not available 03/21/2024 09:14:29 When You Want to Lose Weight: Care Instructions tgrosser Not available 03/21/2024 13:41:51 atrial fibrillation: care instructions tgrosser Not available 03/21/2024 09:18:51 body mass index: care instructions tgrosser Not available 03/21/2024 09:18:51 learning about healthy weight tgrosser Not available 03/21/2024 09:18:51 06/20/2024 [id number] preoperative clearance* Not available 06/20/2024 11:31:08 09/19/2024 [id number] When You Want to Lose Weight: Care Instructions tgrosser Not available 09/19/2024 13:01:07 body mass index: care instructions tgrosser Not available 09/19/2024 09:01:37 learning about healthy weight tgrosser Not available 09/19/2024 09:01:37 01/10/2025 [id number] diabetic foot exam* Not available 01/10/2025 11:48:50 diabetic eye exam* [facility] Not available 02/04/2025 16:31:27 learning about healthy weight Not available 01/10/2025 11:38:01 body mass index: care instructions Not available 01/10/2025 11:38:01 02/13/2025 [id number] When You Want to Lose Weight: Care Instructions tgrosser Not available 02/13/2025 14:33:59 body mass index: care instructions tgrosser Not available 02/13/2025 14:28:46 learning about healthy weight tgrosser Not available 02/13/2025 14:28:46 Reason for Referral None Reported. Results Created Date Observation Date Name Description Value Unit Range Abnormal Flag Note LastModifiedBy Organization Detail LastModifiedTime 03/21/1903/22/2024 TESTO STERO NE,FR EE AND TOTAL testosterone 903 NG/dL 264-91 6 normal Adult male refer ence inter izaiah is based on a popul ation of healt hy nonob eugenia males (BMI <30) betwe en 19 and 39 years old. Karol davison et.al . JCEM 2017, 102;1 161-1 173. PMID: 38206 103. Not Available [facility] ([facility]) [address] [place], [address], 03/24/2024 12:09:18 03/21/1903/24/2024 TESTO STERO NE,FR EE AND TOTAL free testosterone (direct) 16.7 pg/mL 6.6-18 .1 Not Available [facility] ([facility]) [address] [place], [address], 03/24/2024 12:09:18 03/21/1903/22/2024 HEMOG LOBIN A1C hemoglobin A1C 6.6 % 4.8-5. 6 above high normal Predi abete s: 5.7 - 6.4 Diabe laron: >6.4 Glyce ruth ann contr ol for adult s with diabe laron: <7.0 Not Available [facility] ([facility]) [address] [place], [address], 03/24/2024 12:09:18 06/21/19 25 06/21/2024 CBC WITH DIFFE RENTI AL/PL ATELE T WBC 5.0 x10e3 /uL 3.4-10 .8 normal Not Available [facility] ([facility]) [address] [facility], [place], [address], 06/21/2024 11:26:20 06/21/19 25 06/21/2024 CBC WITH DIFFE RENTI AL/PL ATELE T RBC 4.71 x10e6 /uL 4.14-5 .80 normal Not Available [facility] ([facility]) [address] [facility], [place], [address], 06/21/2024 11:26:20 06/21/19 25 06/21/2024 CBC WITH DIFFE RENTI AL/PL ATELE T hemoglobin 14.0 g/dL 13.0-1 7.7 normal Not Available [facility] ([facility]) [address] [facility], [place], [address], 06/21/2024 11:26:20 06/21/19 25 06/21/2024 CBC WITH DIFFE RENTI AL/PL ATELE T hematocrit 43.5 % 37.5-5 1.0 normal Not Available [facility] ([facility]) [address] [place], [address], 06/21/2024 11:26:20 06/21/19 25 06/21/2024 CBC WITH DIFFE RENTI AL/PL ATELE T MCV 92 fL 79-97 normal Not Available [facility] ([facility]) [address] [place], [address], 06/21/2024 11:26:20 06/21/19 25 06/21/2024 CBC WITH DIFFE RENTI AL/PL ATELE T MCH 29.7 pg 26.6-3 3.0 normal Not Available [facility] ([facility]) [address] [place], [address], 06/21/2024 11:26:20 06/21/19 25 06/21/2024 CBC WITH DIFFE RENTI AL/PL ATELE T MCHC 32.2 g/dL 31.5-3 5.7 normal Not Available [facility] ([facility]) [address] [facility], [place], [address], 06/21/2024 11:26:20 06/21/19 25 06/21/2024 CBC WITH DIFFE RENTI AL/PL ATELE T RDW 13.7 % 11.6-1 5.4 Not Available [facility] ([facility]) [address] [facility], [place], [address], 06/21/2024 11:26:20 06/21/19 25 06/21/2024 CBC WITH DIFFE RENTI AL/PL ATELE T platelets 115 x10e3 /uL 150-45 0 below low normal Not Available [facility] ([facility]) [address] [facility], [place], [address], 06/21/2024 11:26:20 06/21/19 25 06/21/2024 CBC WITH DIFFE RENTI AL/PL ATELE T neutrophils 57 % not estab. normal Not Available [facility] ([facility]) [address] [facility], [place], [address], 06/21/2024 11:26:20 06/21/19 25 06/21/2024 CBC WITH DIFFE RENTI AL/PL ATELE T lymphs 32 % not estab. normal Not Available [facility] ([facility]) [address] [facility], [place], [address], 06/21/2024 11:26:20 06/21/19 25 06/21/2024 CBC WITH DIFFE RENTI AL/PL ATELE T monocytes 8 % not estab. normal Not Available [facility] ([facility]) [address] [facility], [place], [address], 06/21/2024 11:26:20 06/21/19 25 06/21/2024 CBC WITH DIFFE RENTI AL/PL ATELE T eos 2 % not estab. normal Not Available [facility] ([facility]) [address] [place], [address], 06/21/2024 11:26:20 06/21/19 25 06/21/2024 CBC WITH DIFFE RENTI AL/PL ATELE T basos 1 % not estab. normal Not Available [facility] ([facility]) [address] [facility], [place], [address], 06/21/2024 11:26:20 06/21/19 25 06/21/2024 CBC WITH DIFFE RENTI AL/PL ATELE T immature cells DEPARTMENTAL SECRETARY Not Available [facility] ([facility]) [address] [place], [address], 06/21/2024 11:26:20 06/21/19 25 06/21/2024 CBC WITH DIFFE RENTI AL/PL ATELE T neutrophils (absolute) 2.9 x10e3 /uL 1.4-7. 0 normal Not Available [facility] ([facility]) [address] [place], [address], 06/21/2024 11:26:20 06/21/19 25 06/21/2024 CBC WITH DIFFE RENTI AL/PL ATELE T lymphs (absolute) 1.6 x10e3 /uL 0.7-3. 1 normal Not Available [facility] ([facility]) [address] [place], [address], 06/21/2024 11:26:20 06/21/19 25 06/21/2024 CBC WITH DIFFE RENTI AL/PL ATELE T monocytes(ab solute) 0.4 x10e3 /uL 0.1-0. 9 normal Not Available [facility] ([facility]) [address] [place], [address], 06/21/2024 11:26:20 06/21/19 25 06/21/2024 CBC WITH DIFFE RENTI AL/PL ATELE T eos (absolute) 0.1 x10e3 /uL 0.0-0. 4 normal Not Available [facility] ([facility]) [address] [facility], [place], [address], 06/21/2024 11:26:20 06/21/19 25 06/21/2024 CBC WITH DIFFE RENTI AL/PL ATELE T baso (absolute) 0.0 x10e3 /uL 0.0-0. 2 normal Not Available [facility] ([facility]) [address] [facility], [place], [address], 06/21/2024 11:26:20 06/21/19 25 06/21/2024 CBC WITH DIFFE RENTI AL/PL ATELE T immature granulocytes 0 % not estab. Not Available [facility] ([facility]) [address] [facility], [place], [address], 06/21/2024 11:26:20 06/21/19 25 06/21/2024 CBC WITH DIFFE RENTI AL/PL ATELE T immature grans (abs) 0.0 x10e3 /uL 0.0-0. 1 Not Available [facility] ([facility]) [address] [facility], [place], [address], 06/21/2024 11:26:20 06/21/19 25 06/21/2024 CBC WITH DIFFE RENTI AL/PL ATELE T NRBC DEPARTMENTAL SECRETARY Not Available [facility] ([facility]) [address] [facility], [place], [address], 06/21/2024 11:26:20 06/21/19 25 06/21/2024 CBC WITH DIFFE RENTI AL/PL ATELE T hematology comments: DEPARTMENTAL SECRETARY Not Available [facility] ([facility]) [address] [facility], [place], [address], 06/21/2024 11:26:20 06/21/19 25 06/21/2024 COMP. METAB OLIC PANEL (14) glucose 150 mg/dL 70-99 above high normal Not Available [facility] ([facility]) [address] [facility], [place], [address], 06/21/2024 11:26:21 06/21/19 25 06/21/2024 COMP. METAB OLIC PANEL (14) BUN 25 mg/dL 8-27 normal Not Available [facility] ([facility]) [address] [facility], [place], [address], 06/21/2024 11:26:21 06/21/19 25 06/21/2024 COMP. METAB OLIC PANEL (14) creatinine 1.19 mg/dL 0.76-1 .27 normal Not Available [facility] ([facility]) [address] [place], [address], 06/21/2024 11:26:21 06/21/19 25 06/21/2024 COMP. METAB OLIC PANEL (14) eGFR 67 mL/mi n/1.7 3 >59 normal Not Available [facility] ([facility]) [address] [place], [address], 06/21/2024 11:26:21 06/21/19 25 06/21/2024 COMP. METAB OLIC PANEL (14) BUN/creatini ne ratio 21 10-24 normal Not Available [facility] ([facility]) [address] [place], [address], 06/21/2024 11:26:21 06/21/19 25 06/21/2024 COMP. METAB OLIC PANEL (14) sodium 140 mmol/ L 134-14 4 normal Not Available [facility] ([facility]) [address] [place], [address], 06/21/2024 11:26:21 06/21/19 25 06/21/2024 COMP. METAB OLIC PANEL (14) potassium 5.3 mmol/ L 3.5-5. 2 above high normal Not Available [facility] ([facility]) [address] [place], [address], 06/21/2024 11:26:21 06/21/19 25 06/21/2024 COMP. METAB OLIC PANEL (14) chloride 108 mmol/ L 96-106 above high normal Not Available [facility] ([facility]) [address] [place], [address], 06/21/2024 11:26:21 06/21/19 25 06/21/2024 COMP. METAB OLIC PANEL (14) carbon dioxide, total 19 mmol/ L 20-29 below low normal Not Available [facility] ([facility]) [address] [facility], [place], [address], 06/21/2024 11:26:21 06/21/19 25 06/21/2024 COMP. METAB OLIC PANEL (14) calcium 9.1 mg/dL 8.6-10 .2 normal Not Available [facility] ([facility]) [address] [place], [address], 06/21/2024 11:26:21 06/21/19 25 06/21/2024 COMP. METAB OLIC PANEL (14) protein, total 6.6 g/dL 6.0-8. 5 normal Not Available [facility] ([facility]) [address] [place], [address], 06/21/2024 11:26:21 06/21/19 25 06/21/2024 COMP. METAB OLIC PANEL (14) albumin 4.5 g/dL 3.9-4. 9 normal Not Available [facility] ([facility]) [address] [place], [address], 06/21/2024 11:26:21 06/21/19 25 06/21/2024 COMP. METAB OLIC PANEL (14) globulin, total 2.1 g/dL 1.5-4. 5 Not Available [facility] ([facility]) [address] [place], [address], 06/21/2024 11:26:21 06/21/19 25 06/21/2024 COMP. METAB OLIC PANEL (14) bilirubin, total 0.4 mg/dL 0.0-1. 2 normal Not Available [facility] ([facility]) [address] [place], [address], 06/21/2024 11:26:21 06/21/19 25 06/21/2024 COMP. METAB OLIC PANEL (14) alkaline phosphatase 149 IU/L 44-121 above high normal Not Available [facility] ([facility]) [address] [place], [address], 06/21/2024 11:26:21 06/21/19 25 06/21/2024 COMP. METAB OLIC PANEL (14) AST (SGOT) 34 IU/L 0-40 normal Not Available [facility] ([facility]) [address] [place], [address], 06/21/2024 11:26:21 06/21/19 25 06/21/2024 COMP. METAB OLIC PANEL (14) ALT (SGPT) 45 IU/L 0-44 above high normal Not Available [facility] ([facility]) [address] [place], [address], 06/21/2024 11:26:21 06/21/19 25 06/21/2024 LIPID PANEL cholesterol, total 103 mg/dL 100-19 9 normal Not Available [facility] ([facility]) [address] [place], [address], 06/21/2024 11:26:22 06/21/19 25 06/21/2024 LIPID PANEL triglyceride s 95 mg/dL 0-149 normal Not Available [facility] ([facility]) [address] [place], [address], 06/21/2024 11:26:22 06/21/19 25 06/21/2024 LIPID PANEL HDL cholesterol 35 mg/dL >39 below low normal Not Available [facility] ([facility]) [address] [place], [address], 06/21/2024 11:26:22 06/21/19 25 06/21/2024 LIPID PANEL VLDL cholesterol orly 18 mg/dL 5-40 Not Available [facility] ([facility]) [address] [place], [address], 06/21/2024 11:26:22 06/21/19 25 06/21/2024 LIPID PANEL LDL chol calc ([facility]) 50 mg/dL 0-99 Not Available [facility] ([facility]) [address] [place], [address], 06/21/2024 11:26:22 06/21/19 25 06/21/2024 LIPID PANEL LDL calc comment: DEPARTMENTAL SECRETARY Not Available [facility] ([facility]) [address] [place], [address], 06/21/2024 11:26:22 06/21/19 25 06/21/2024 HEMOG LOBIN A1C hemoglobin A1C 6.7 % 4.8-5. 6 above high normal Predi abete s: 5.7 - 6.4 Diabe laron: >6.4 Glyce ruth ann contr ol for adult s with diabe laron: <7.0 Not Available [facility] ([facility]) [address] [place], [address], 06/21/2024 11:26:22 06/21/19 25 06/21/2024 TESTO STERO NE testosterone 485 NG/dL 264-91 6 normal Adult male refer ence inter izaiah is based on a popul ation of healt hy nonob eugenia males (BMI <30) betwe en 19 and 39 years old. Karol davison et.al . JCEM 2017, 102;1 161-1 173. PMID: 04534 103. Not Available [facility] ([facility]) [address] [place], [address], 06/21/2024 11:26:23 06/21/19 25 06/21/2024 PROST ATE-S PECIF IC AG prostate specific Ag 0.5 NG/mL 0.0-4. 0 normal Deuce ECLIA metho [...] kits canno t be used inter kaba eafredrick . Resul ts canno t be inter prete d as absol mohegan evide nce of the prese nce or [facility]en [facility]. Not Available [facility] ([facility]) [address] [place], [address], 06/21/2024 11:26:24 01/11/20 25 01/11/2025 TSH+F REE T4 TSH 2.650 uIU/m L 0.450- 4.500 normal Not Available [facility] ([facility]) [address] [place], [address], 01/11/2025 11:14:11 01/11/20 25 01/11/2025 TSH+F REE T4 T4,free(dire ct) 1.29 NG/dL 0.82-1 .77 normal Not Available [facility] ([facility]) [address] [place], [address], 01/11/2025 11:14:11 01/11/20 25 01/11/2025 CBC WITH DIFFE RENTI AL/PL ATELE T WBC 4.4 x10e3 /uL 3.4-10 .8 normal Not Available [facility] ([facility]) [address] [place], [address], 01/11/2025 11:14:12 01/11/20 25 01/11/2025 CBC WITH DIFFE RENTI AL/PL ATELE T RBC 4.29 x10e6 /uL 4.14-5 .80 normal Not Available [facility] ([facility]) [address] [facility], [place], [address], 01/11/2025 11:14:12 01/11/20 25 01/11/2025 CBC WITH DIFFE RENTI AL/PL ATELE T hemoglobin 13.2 g/dL 13.0-1 7.7 normal Not Available [facility] ([facility]) [address] [place], [address], 01/11/2025 11:14:12 01/11/20 25 01/11/2025 CBC WITH DIFFE RENTI AL/PL ATELE T hematocrit 40.2 % 37.5-5 1.0 normal Not Available [facility] ([facility]) [address] [facility], [place], [address], 01/11/2025 11:14:12 01/11/20 25 01/11/2025 CBC WITH DIFFE RENTI AL/PL ATELE T MCV 94 fL 79-97 normal Not Available [facility] ([facility]) [address] [place], [address], 01/11/2025 11:14:12 01/11/20 25 01/11/2025 CBC WITH DIFFE RENTI AL/PL ATELE T MCH 30.8 pg 26.6-3 3.0 normal Not Available [facility] ([facility]) [address] [place], [address], 01/11/2025 11:14:12 01/11/20 25 01/11/2025 CBC WITH DIFFE RENTI AL/PL ATELE T MCHC 32.8 g/dL 31.5-3 5.7 normal Not Available [facility] ([facility]) [address] [place], [address], 01/11/2025 11:14:12 01/11/20 25 01/11/2025 CBC WITH DIFFE RENTI AL/PL ATELE T RDW 13.1 % 11.6-1 5.4 Not Available [facility] ([facility]) [address] [facility], [place], [address], 01/11/2025 11:14:12 01/11/20 25 01/11/2025 CBC WITH DIFFE RENTI AL/PL ATELE T platelets 140 x10e3 /uL 150-45 0 below low normal Not Available [facility] ([facility]) [address] [facility], [place], [address], 01/11/2025 11:14:12 01/11/20 25 01/11/2025 CBC WITH DIFFE RENTI AL/PL ATELE T neutrophils 60 % not estab. normal Not Available [facility] ([facility]) [address] [facility], [place], [address], 01/11/2025 11:14:12 01/11/20 25 01/11/2025 CBC WITH DIFFE RENTI AL/PL ATELE T lymphs 28 % not estab. normal Not Available [facility] ([facility]) [address] [facility], [place], [address], 01/11/2025 11:14:12 01/11/20 25 01/11/2025 CBC WITH DIFFE RENTI AL/PL ATELE T monocytes 8 % not estab. normal Not Available [facility] ([facility]) [address] [facility], [place], [address], 01/11/2025 11:14:12 01/11/20 25 01/11/2025 CBC WITH DIFFE RENTI AL/PL ATELE T eos 3 % not estab. normal Not Available [facility] ([facility]) [address] [facility], [place], [address], 01/11/2025 11:14:12 01/11/20 25 01/11/2025 CBC WITH DIFFE RENTI AL/PL ATELE T basos 1 % not estab. normal Not Available [facility] ([facility]) [address] [place], [address], 01/11/2025 11:14:12 01/11/20 25 01/11/2025 CBC WITH DIFFE RENTI AL/PL ATELE T immature cells DEPARTMENTAL SECRETARY Not Available [facility] ([facility]) [address] [place], [address], 01/11/2025 11:14:12 01/11/20 25 01/11/2025 CBC WITH DIFFE RENTI AL/PL ATELE T neutrophils (absolute) 2.7 x10e3 /uL 1.4-7. 0 normal Not Available [facility] ([facility]) [address] [place], [address], 01/11/2025 11:14:12 01/11/20 25 01/11/2025 CBC WITH DIFFE RENTI AL/PL ATELE T lymphs (absolute) 1.2 x10e3 /uL 0.7-3. 1 normal Not Available [facility] ([facility]) [address] [place], [address], 01/11/2025 11:14:12 01/11/20 25 01/11/2025 CBC WITH DIFFE RENTI AL/PL ATELE T monocytes(ab solute) 0.3 x10e3 /uL 0.1-0. 9 normal Not Available [facility] ([facility]) [address] [place], [address], 01/11/2025 11:14:12 01/11/20 25 01/11/2025 CBC WITH DIFFE RENTI AL/PL ATELE T eos (absolute) 0.1 x10e3 /uL 0.0-0. 4 normal Not Available [facility] ([facility]) [address] [place], [address], 01/11/2025 11:14:12 01/11/20 25 01/11/2025 CBC WITH DIFFE RENTI AL/PL ATELE T baso (absolute) 0.0 x10e3 /uL 0.0-0. 2 normal Not Available [facility] ([facility]) [address] [facility], [place], [address], 01/11/2025 11:14:12 01/11/20 25 01/11/2025 CBC WITH DIFFE RENTI AL/PL ATELE T immature granulocytes 0 % not estab. Not Available [facility] ([facility]) [address] [facility], [place], [address], 01/11/2025 11:14:12 01/11/20 25 01/11/2025 CBC WITH DIFFE RENTI AL/PL ATELE T immature grans (abs) 0.0 x10e3 /uL 0.0-0. 1 Not Available [facility] ([facility]) [address] [facility], [place], [address], 01/11/2025 11:14:12 01/11/20 25 01/11/2025 CBC WITH DIFFE RENTI AL/PL ATELE T NRBC DEPARTMENTAL SECRETARY Not Available [facility] ([facility]) [address] [facility], [place], [address], 01/11/2025 11:14:12 01/11/20 25 01/11/2025 CBC WITH DIFFE RENTI AL/PL ATELE T hematology comments: DEPARTMENTAL SECRETARY Not Available [facility] ([facility]) [address] [place], [address], 01/11/2025 11:14:12 01/11/20 25 01/11/2025 COMP. METAB OLIC PANEL (14) glucose 152 mg/dL 70-99 above high normal Not Available [facility] ([facility]) [address] [place], [address], 01/11/2025 11:14:13 01/11/20 25 01/11/2025 COMP. METAB OLIC PANEL (14) BUN 14 mg/dL 8-27 normal Not Available [facility] ([facility]) [address] [facility], [place], [address], 01/11/2025 11:14:13 01/11/20 25 01/11/2025 COMP. METAB OLIC PANEL (14) creatinine 1.29 mg/dL 0.76-1 .27 above high normal Not Available [facility] ([facility]) [address] [facility], [place], [address], 01/11/2025 11:14:13 01/11/20 25 01/11/2025 COMP. METAB OLIC PANEL (14) eGFR 61 mL/mi n/1.7 3 >59 normal Not Available [facility] ([facility]) [address] [facility], [place], [address], 01/11/2025 11:14:13 01/11/20 25 01/11/2025 COMP. METAB OLIC PANEL (14) BUN/creatini ne ratio 11 10-24 normal Not Available [facility] ([facility]) [address] [facility], [place], [address], 01/11/2025 11:14:13 01/11/20 25 01/11/2025 COMP. METAB OLIC PANEL (14) sodium 140 mmol/ L 134-14 4 normal Not Available [facility] ([facility]) [address] [facility], [place], [address], 01/11/2025 11:14:13 01/11/20 25 01/11/2025 COMP. METAB OLIC PANEL (14) potassium 5.3 mmol/ L 3.5-5. 2 above high normal Not Available [facility] ([facility]) [address] [facility], [place], [address], 01/11/2025 11:14:13 01/11/20 25 01/11/2025 COMP. METAB OLIC PANEL (14) chloride 106 mmol/ L 96-106 normal Not Available [facility] ([facility]) [address], [place], [address], 01/11/2025 11:14:13 01/11/20 25 01/11/2025 COMP. METAB OLIC PANEL (14) carbon dioxide, total 20 mmol/ L 20-29 normal Not Available [facility] ([facility]) [address], [place], [address], 01/11/2025 11:14:13 01/11/20 25 01/11/2025 COMP. METAB OLIC PANEL (14) calcium 9.2 mg/dL 8.6-10 .2 normal Not Available [facility] ([facility] [address] [facility] [place], [address], 01/11/2025 11:14:13 01/11/20 25 01/11/2025 COMP. METAB OLIC PANEL (14) protein, total 7.0 g/dL 6.0-8. 5 normal Not Available [facility] ([facility]) [address] [facility], [place], [address], 01/11/2025 11:14:13 01/11/20 25 01/11/2025 COMP. METAB OLIC PANEL (14) albumin 4.6 g/dL 3.9-4. 9 normal Not Available [facility] ([facility]) [address] [facility] [place], [address], 01/11/2025 11:14:13 01/11/20 25 01/11/2025 COMP. METAB OLIC PANEL (14) globulin, total 2.4 g/dL 1.5-4. 5 Not Available [facility] ([facility]) [address] [facility] [place], [address], 01/11/2025 11:14:13 01/11/20 25 01/11/2025 COMP. METAB OLIC PANEL (14) bilirubin, total 0.6 mg/dL 0.0-1. 2 normal Not Available [facility] ([facility]) [address] [place], [address], 01/11/2025 11:14:13 01/11/20 25 01/11/2025 COMP. METAB OLIC PANEL (14) alkaline phosphatase 128 IU/L 47-123 above high normal Not Available [facility] ([facility]) [address] [place], [address], 01/11/2025 11:14:13 01/11/20 25 01/11/2025 COMP. METAB OLIC PANEL (14) AST (SGOT) 31 IU/L 0-40 normal Not Available [facility] ([facility]) [address] [place], [address], 01/11/2025 11:14:13 01/11/20 25 01/11/2025 COMP. METAB OLIC PANEL (14) ALT (SGPT) 25 IU/L 0-44 normal Not Available [facility] ([facility]) [address] [place], [address], 01/11/2025 11:14:13 01/11/20 25 01/11/2025 LIPID PANEL cholesterol, total 120 mg/dL 100-19 9 normal Not Available [facility] ([facility]) [address] [place], [address], 01/11/2025 11:14:14 01/11/20 25 01/11/2025 LIPID PANEL triglyceride s 193 mg/dL 0-149 above high normal Not Available [facility] ([facility]) [address] [place], [address], 01/11/2025 11:14:14 01/11/20 25 01/11/2025 LIPID PANEL HDL cholesterol 38 mg/dL >39 below low normal Not Available [facility] ([facility]) [address] [place], [address], 01/11/2025 11:14:14 01/11/20 25 01/11/2025 LIPID PANEL VLDL cholesterol orly 32 mg/dL 5-40 Not Available [facility] ([facility]) [address] [place], [address], 01/11/2025 11:14:14 01/11/20 25 01/11/2025 LIPID PANEL LDL chol calc ([facility]) 50 mg/dL 0-99 Not Available [facility] ([facility]) [address] [facility], [place], [address], 01/11/2025 11:14:14 01/11/20 25 01/11/2025 LIPID PANEL LDL calc 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 6 above high normal Predi abete s: 5.7 - 6.4 Diabe laron: >6.4 Glyce ruth ann contr ol for adult s with diabe laron: <7.0 Not Available [facility] ([facility]) [address] [facility], [place], [address], 01/11/2025 11:14:15 01/11/20 25 01/11/2025 TESTO STERO NE testosterone 531 NG/dL 264-91 6 normal Adult male refer ence inter izaiah is based on a popul ation of healt hy nonob eugenia males (BMI <30) betwe en 19 and 39 years old. Karol davison et.al . JCEM 2017, 102;1 161-1 173. PMID: 32897 103. Not Available [facility] ([facility]) [address] [facility], [place], [address], 01/11/2025 11:14:16 01/11/20 25 01/11/2025 PROST ATE-S [...] t be inter prete d as absol mohegan evide nce of the prese nce or absen ce of mika nanaugustus disea se. Not Available [facility] ([facility]) [address] [facility], [place], [address], 01/11/2025 11:14:17 01/11/20 25 01/16/2025 TOXAS SURE [...] orly consu ltati on, pleas e call . ===== ===== ===== ===== ===== ===== ===== ===== ===== ===== ===== ===== ===== === Not Available [facility] ([facility]) [address] [place], [address], 01/16/2025 20:10:50 01/11/20 25 01/16/2025 TOXAS SURE FLEX 22, URINE pdf . Not Available [facility] ([facility]) [address] [place], [address], 01/16/2025 20:10:50 01/11/20 25 01/16/2025 TOXAS SURE FLEX 22, URINE creatinine 548 mg/dL >=20 REFER ENCE RANGE : Ref Range >=20 Not Available [facility] ([facility]) [address] [place], [address], 01/16/2025 20:10:50 01/11/20 25 01/16/2025 TOXAS SURE FLEX 22, URINE amphetamines ia COMMEN T NG/mL cutoff :300 Furth er testi ng indic ated Not Available [facility] ([facility]) [address] [place], [address], 01/16/2025 20:10:50 01/11/20 25 01/16/2025 TOXAS SURE FLEX 22, URINE benzodiazepi rosie Negati ve Not Available [facility] ([facility]) [address] [place], [address], 01/16/2025 20:10:50 01/11/20 25 01/16/2025 TOXAS SURE FLEX 22, URINE diazepam Not Detect ed NG/mg _crea t Not Available [facility] ([facility]) [address] [place], [address], 01/16/2025 20:10:50 01/11/20 25 01/16/2025 TOXAS SURE FLEX 22, URINE desmethyldia zepam Not Detect ed NG/mg _crea t Not Available [facility] ([facility]) [address] [place], [address], 01/16/2025 20:10:50 01/11/20 25 01/16/2025 TOXAS SURE FLEX 22, URINE oxazepam Not Detect ed NG/mg _crea t Not Available [facility] ([facility]) [address] [place], [address], 01/16/2025 20:10:50 01/11/20 25 01/16/2025 TOXAS SURE [...] jessica Oxaze jessica: None Not Available [facility] ([facility]) [address] [facility], [place], [address], 01/16/2025 20:10:50 01/11/20 25 01/16/2025 TOXAS SURE FLEX 22, URINE alprazolam Not Detect ed NG/mg _crea t Not Available [facility] ([facility]) [address] [place], [address], 01/16/2025 20:10:50 01/11/20 25 01/16/2025 TOXAS SURE FLEX 22, URINE alpha-hydrox yalprazolam Not Detect ed NG/mg _crea t Not Available [facility] ([facility]) [address] [place], [address], 01/16/2025 20:10:50 01/11/20 25 01/16/2025 TOXAS SURE FLEX 22, URINE desalkylflur azepam Not Detect ed NG/mg _crea t Not Available [facility] ([facility]) [address] [place], [address], 01/16/2025 20:10:50 01/11/20 25 01/16/2025 TOXAS SURE FLEX 22, URINE lorazepam Not Detect ed NG/mg _crea t Not Available [facility] ([facility]) [address] [place], [address], 01/16/2025 20:10:50 01/11/20 25 01/16/2025 TOXAS SURE FLEX 22, URINE alpha-hydrox ytriazolam Not Detect ed NG/mg _crea t Not Available [facility] ([facility]) [address] [place], [address], 01/16/2025 20:10:50 01/11/20 25 01/16/2025 TOXAS SURE FLEX 22, URINE clonazepam Not Detect ed NG/mg _crea t Not Available [facility] ([facility]) [address] [place], [address], 01/16/2025 20:10:50 01/11/20 25 01/16/2025 TOXAS SURE FLEX 22, URINE 7-aminoclona zepam Not Detect ed NG/mg _crea t Not Available [facility] ([facility]) [address] [place], [address], 01/16/2025 20:10:50 01/11/20 25 01/16/2025 TOXAS SURE FLEX 22, URINE midazolam Not Detect ed NG/mg _crea t Not Available [facility] ([facility]) [address] [place], [address], 01/16/2025 20:10:50 01/11/20 25 01/16/2025 TOXAS SURE FLEX 22, URINE alpha-hydrox ymidazolam Not Detect ed NG/mg _crea t Not Available [facility] ([facility]) [address] [place], [address], 01/16/2025 20:10:50 01/11/20 25 01/16/2025 TOXAS SURE FLEX 22, URINE flunitrazepa m Not Detect ed NG/mg _crea t Not Available [facility] ([facility]) [address] [place], [address], 01/16/2025 20:10:50 01/11/20 25 01/16/2025 TOXAS SURE FLEX 22, URINE desmethylflu nitrazepam Not Detect ed NG/mg _crea t Not Available [facility] ([facility]) [address] [place], [address], 01/16/2025 20:10:50 01/11/20 25 01/16/2025 TOXAS SURE FLEX 22, URINE cocaine metabolite ia Negati ve NG/mL cutoff :150 Not Available [facility] ([facility]) [address] [place], [address], 01/16/2025 20:10:50 01/11/20 25 01/16/2025 TOXAS SURE FLEX 22, URINE ethyl alcohol enzymatic Negati ve g/dL cutoff :0.020 Not Available [facility] ([facility]) [address] [place], [address], 01/16/2025 20:10:50 01/11/20 25 01/16/2025 TOXAS SURE FLEX 22, URINE ethanol biomarkers ia COMMEN T NG/mL cutoff :500 Furth er testi ng indic ated Not Available [facility] ([facility]) [address] [place], [address], 01/16/2025 20:10:50 01/11/20 25 01/16/2025 TOXAS SURE FLEX 22, URINE 6-acetylmorp quinn ia Negati ve NG/mL cutoff :10 Not Available [facility] ([facility]) [address] [place], [address], 01/16/2025 20:10:50 01/11/20 25 01/16/2025 TOXAS SURE FLEX 22, URINE opiate class ia COMMEN T NG/mL cutoff :100 Furth er testi ng indic ated Not Available [facility] ([facility]) [address] [place], [address], 01/16/2025 20:10:50 01/11/20 25 01/16/2025 TOXAS SURE FLEX 22, URINE oxycodone class ia COMMEN T NG/mL cutoff :100 Furth er testi ng indic ated Not Available [facility] ([facility]) [address] [place], [address], 01/16/2025 20:10:50 01/11/20 25 01/16/2025 TOXAS SURE FLEX 22, URINE methadone ia COMMEN T NG/mL cutoff :100 Furth er testi ng indic ated Not Available [facility] ([facility]) [address] [place], [address], 01/16/2025 20:10:50 01/11/20 25 01/16/2025 TOXAS SURE FLEX 22, URINE methadone mtb ia COMMEN T NG/mL cutoff :100 Furth er testi ng indic ated Not Available [facility] ([facility]) [address] [place], [address], 01/16/2025 20:10:50 01/11/20 25 01/16/2025 TOXAS SURE FLEX 22, URINE buprenorphin e Negati ve Not Available [facility] ([facility]) [address] [place], [address], 01/16/2025 20:10:50 01/11/20 25 01/16/2025 TOXAS SURE FLEX 22, URINE buprenorphin e Not Detect ed NG/mg _crea t Not Available [facility] ([facility]) [address] [place] [address], [address], 01/16/2025 20:10:50 01/11/20 25 01/16/2025 TOXAS SURE FLEX 22, URINE norbuprenorp quinn Not Detect ed NG/mg _crea t Not Available [facility] ([facility]) [address] [place] [address], [address], 01/16/2025 20:10:50 01/11/20 25 01/16/2025 TOXAS SURE FLEX 22, URINE fentanyl / analogues Negati ve Not Available [facility] ([facility]) [address] [place] [address], [address], 01/16/2025 20:10:50 01/11/20 25 01/16/2025 TOXAS SURE FLEX 22, URINE fentanyl Not Detect ed NG/mg _crea t Not Available [facility] ([facility]) [address] [place] [address], [address], 01/16/2025 20:10:50 01/11/20 25 01/16/2025 TOXAS SURE FLEX 22, URINE norfentanyl Not Detect ed NG/mg _crea t Not Available [facility] ([facility]) [address] [place] [address], [address], 01/16/2025 20:10:50 01/11/20 25 01/16/2025 TOXAS SURE FLEX 22, URINE tapentadol ia Negati ve NG/mL cutoff :200 Not Available [facility] ([facility]) [address] [place], [address], 01/16/2025 20:10:50 01/11/20 25 01/16/2025 TOXAS SURE FLEX 22, URINE meperidine ia Negati ve NG/mL cutoff :200 Not Available [facility] ([facility]) [address] [place], [address], 01/16/2025 20:10:50 01/11/20 25 01/16/2025 TOXAS SURE FLEX 22, URINE propoxyphene ia Negati ve NG/mL cutoff :300 Not Available [facility] ([facility]) [address] [place] [address], [address], 01/16/2025 20:10:50 01/11/20 25 01/16/2025 TOXAS SURE FLEX 22, URINE tramadol ia Negati ve NG/mL cutoff :200 Not Available [facility] ([facility]) [address] [place] [address], [address], 01/16/2025 20:10:50 01/11/20 25 01/16/2025 TOXAS SURE FLEX 22, URINE barbiturates ia COMMEN T NG/mL cutoff :200 Furth er testi ng indic ated Not Available [facility] ([facility]) [address] [place], [address], 01/16/2025 20:10:50 01/11/20 25 01/16/2025 TOXAS SURE FLEX 22, URINE other hallucinogen s Negati ve Not Available [facility] ([facility]) [address] [place], [address], 01/16/2025 20:10:50 01/11/20 25 01/16/2025 TOXAS SURE FLEX 22, URINE ketamine Not Detect ed Not Available [facility] ([facility]) [address] [place], [address], 01/16/2025 20:10:50 01/11/20 25 01/16/2025 TOXAS SURE FLEX 22, URINE norketamine Not Detect ed Not Available [facility] ([facility]) [address] [place], [address], 01/16/2025 20:10:50 01/11/20 25 01/16/2025 TOXAS SURE FLEX 22, URINE phencyclidin e ia COMMEN T NG/mL cutoff :25 Furth er testi ng indic ated Not Available [facility] ([facility]) [address] [place], [address], 01/16/2025 20:10:50 01/11/20 25 01/16/2025 TOXAS SURE FLEX 22, URINE gabapentin ia COMMEN T ug/mL cutoff :1.0 Furth er testi ng indic ated Not Available [facility] ([facility]) [address] [place], [address], 01/16/2025 20:10:50 01/11/20 25 01/16/2025 TOXAS SURE FLEX 22, URINE carisoprodol ia Negati ve NG/mL cutoff :100 Not Available [facility] ([facility]) [address] [place], [address], 01/16/2025 20:10:50 01/11/20 25 01/16/2025 TOXAS SURE FLEX 22, URINE sedative/hyp notics Negati ve Not Available [facility] ([facility]) [address] [facility], [place], [address], 01/16/2025 20:10:50 01/11/20 25 01/16/2025 TOXAS SURE FLEX 22, URINE zolpidem Not Detect ed Not Available [facility] ([facility]) [address] [place], [address], 01/16/2025 20:10:50 01/11/20 25 01/16/2025 TOXAS SURE FLEX 22, URINE zolpidem acid Not Detect ed Not Available [facility] ([facility]) [address] [place], [address], 01/16/2025 20:10:50 01/11/20 25 01/16/2025 TOXAS SURE FLEX 22, URINE zopiclone/es zopiclone Not Detect ed Not Available [facility] ([facility]) [address] [place] [address], [address], 01/16/2025 20:10:50 01/11/20 25 01/16/2025 TOXAS SURE FLEX 22, URINE amino chloropyridi ne Not Detect ed Not Available [facility] ([facility]) [address] [place], [address], 01/16/2025 20:10:50 01/11/20 25 01/16/2025 TOXAS SURE FLEX 22, URINE zaleplon Not Detect ed Expec marlene metab olism of Sedat brigitte/ Hypno tics: Paren t Drug Detec marlene Metab olite s ----- ----- - ----- ----- ----- ----- Zolpi dem: Zolpi dem Acid Zopic lone/ Eszop iclon e: Amino Chlor opyri dine Zalep kev: None Not Available [facility] ([facility]) [address] [facility], [place], [address], 01/16/2025 20:10:50 01/11/20 25 01/16/2025 TOXAS SURE FLEX 22, URINE acetaminophe n ia COMMEN T ug/mL cutoff :5.0 Furth er testi ng indic ated Not Available [facility] ([facility]) [address] [place], [address], 01/16/2025 20:10:50 01/11/20 25 01/16/2025 TOXAS SURE FLEX 22, URINE miscellaneou s Negati ve Not Available [facility] ([facility]) [address] [place], [address], 01/16/2025 20:10:50 01/11/20 25 01/16/2025 TOXAS SURE FLEX 22, URINE dextromethor olmos Not Detect ed Not Available [facility] ([facility]) [address] [facility], [place], [address], 01/16/2025 20:10:50 01/11/20 25 01/16/2025 TOXAS SURE [...] l by the metho d used for letitia sis. Not Available [facility] ([facility]) [address] [place], [address], 01/16/2025 20:10:50 01/11/20 25 01/16/2025 VERITO TURAT ES, MS, UR RFX barbiturates Negati ve Not Available [facility] ([facility]) [address], [place], [address], 01/16/2025 20:10:51 01/11/20 25 01/16/2025 VERITO TURAT ES, MS, UR RFX amobarbital Not Detect ed Not Available [facility] ([facility]) [address] [facility], [place], [address], 01/16/2025 20:10:51 01/11/20 25 01/16/2025 VERITO TURAT ES, MS, UR RFX barbital Not Detect ed Not Available [facility] ([facility]) [address] [facility], [place], [address], 01/16/2025 20:10:51 01/11/20 25 01/16/2025 VERITO TURAT ES, MS, UR RFX butabarbital Not Detect ed Not Available [facility] ([facility]) [address] [facility], [place], [address], 01/16/2025 20:10:51 01/11/20 25 01/16/2025 VERITO TURAT ES, MS, UR RFX butalbital Not Detect ed Not Available [facility] ([facility]) [address] [facility], [place], [address], 01/16/2025 20:10:51 01/11/20 25 01/16/2025 VERITO TURAT ES, MS, UR RFX mephobarbita l Not Detect ed Not Available [facility] ([facility]) [address] [facility], [place], [address], 01/16/2025 20:10:51 01/11/20 25 01/16/2025 VERITO TURAT ES, MS, UR RFX pentobarbita l Not Detect ed Not Available [facility] ([facility]) [address] [facility], [place], [address], 01/16/2025 20:10:51 01/11/20 25 01/16/2025 VERITO TURAT ES, MS, UR RFX phenobarbita l Not Detect ed Not Available [facility] ([facility]) [address] [facility], [place], [address], 01/16/2025 20:10:51 01/11/20 25 01/16/2025 EVRITO TURAT ES, MS, UR RFX secobarbital Not Detect ed Not Available [facility] ([facility]) [address] [facility], [place], [address], 01/16/2025 20:10:51 01/11/2001/16/2025 VERITO TURAT ES, MS, UR RFX thiopental Not Detect ed Not Available [facility] ([facility]) [address] [facility], [place], [address], 01/16/2025 20:10:51 01/11/20 25 01/16/2025 OPIAT E CLASS , MS, UR RFX opiate class Negati ve Not Available [facility] ([facility]) [address] [place], [address], 01/16/2025 20:10:52 01/11/20 25 01/16/2025 OPIAT E CLASS , MS, UR RFX codeine Not Detect ed NG/mg _crea t Not Available [facility] ([facility]) [address] [facility], [place], [address], 01/16/2025 20:10:52 01/11/20 25 01/16/2025 OPIAT E CLASS , MS, UR RFX morphine Not Detect ed NG/mg _crea t Not Available [facility] ([facility]) [address] [place], [address], 01/16/2025 20:10:52 01/11/20 25 01/16/2025 OPIAT E CLASS , MS, UR RFX normorphine Not Detect ed NG/mg _crea t Not Available [facility] ([facility]) [address] [place], [address], 01/16/2025 20:10:52 01/11/20 25 01/16/2025 OPIAT E CLASS , MS, UR RFX norcodeine Not Detect ed NG/mg _crea t Not Available [facility] ([facility]) [address] [place], [address], 01/16/2025 20:10:52 01/11/20 25 01/16/2025 OPIAT E CLASS , MS, UR RFX hydrocodone Not Detect ed NG/mg _crea t Not Available [facility] ([facility]) [address] [place], [address], 01/16/2025 20:10:52 01/11/20 25 01/16/2025 OPIAT E CLASS , MS, UR RFX hydromorphon e Not Detect ed NG/mg _crea t Not Available [facility] ([facility]) [address] [place], [address], 01/16/2025 20:10:52 01/11/20 25 01/16/2025 OPIAT E CLASS , MS, UR RFX dihydrocodei ne Not Detect ed NG/mg _crea t Not Available [facility] ([facility]) [address] [place], [address], 01/16/2025 20:10:52 01/11/20 25 01/16/2025 OPIAT E CLASS , MS, UR RFX norhydrocodo ne Not Detect ed NG/mg _crea t Expec marlene metab olism of opiat e class drugs : Paren t Drug Detec marlene Metab olite s ----- ----- - ----- ----- ----- ----- Codei ne: Major : Morph ine, [place] deine Minor : [place] codon e, [place] morph one, Dihyd rocod eine, Norhy droco done, Normo rphin e Morph ine: Major : Normo rphin e Minor : [place] morph one [place] codon e: [place] morph one, Dihyd rocod eine, Norhy droco done [place] morph one: None Dihyd rocod eine: None Heroi n: 6-Kal tylmo rphin e (if inclu ded), Morph ine, Normo rphin e Codei ne, in small amoun ts in destin rison to morph ine, is often detec marlene when heroi n is the sourc e drug. Not Available [facility] ([facility]) [address] [place], [address], 01/16/2025 20:10:52 01/11/2001/16/2025 AMPHE TAMIN ES, MS, UR RFX amphetamines Negati ve Not Available [facility] ([facility]) [address] [place], [address], 01/16/2025 20:10:52 01/11/20 25 01/16/2025 AMPHE TAMIN ES, MS, UR RFX methamphetam ine Not Detect ed NG/mg _crea t Not Available [facility] ([facility]) [address] [place], [address], 01/16/2025 20:10:52 01/11/20 25 01/16/2025 AMPHE TAMIN ES, MS, UR RFX amphetamine Not Detect ed NG/mg _crea t Not Available [facility] ([facility]) [address] [place], [address], 01/16/2025 20:10:52 01/11/20 25 01/16/2025 AMPHE TAMIN ES, MS, UR RFX MDMA (ecstasy) Not Detect ed NG/mg _crea t Not Available [facility] ([facility]) [address] [place], [address], 01/16/2025 20:10:52 01/11/20 25 01/16/2025 AMPHE TAMIN ES, MS, UR RFX mda (ecstasy metabolite) Not Detect ed NG/mg _crea t Not Available [facility] ([facility]) [address] [place], [address], 01/16/2025 20:10:52 01/11/20 25 01/16/2025 OXYCO DONE CLASS , MS, UR RFX oxycodone class Negati ve Not Available [facility] ([facility]) [address] [place], [address], 01/16/2025 20:10:53 01/11/2001/16/2025 OXYCO DONE CLASS , MS, UR RFX oxycodone Not Detect ed NG/mg _crea t Not Available [facility] ([facility]) [address] [place], [address], 01/16/2025 20:10:53 01/11/20 25 01/16/2025 OXYCO DONE CLASS , MS, UR RFX oxymorphone Not Detect ed NG/mg _crea t Not Available [facility] ([facility]) [address] [place] [address], [id number], 01/16/2025 20:10:53 01/11/20 25 01/16/2025 OXYCO DONE CLASS , MS, UR RFX noroxycodone Not Detect ed NG/mg _crea t Not Available [facility] ([facility]) [address] [place], [address], 01/16/2025 20:10:53 01/11/20 25 01/16/2025 OXYCO DONE [...] e: Norox ymorp keesha Not Available [facility] ([facility]) [address] [place], [address], 01/16/2025 20:10:53 01/11/20 25 01/16/2025 KIMBERLEY OL BIOMA RKERS , MS, UR RFX ethanol biomarkers Negati ve Not Available [facility] ([facility]) [address] [place], [address], 01/16/2025 20:10:53 01/11/20 25 01/16/2025 KIMBERLEY OL BIOMA RKERS , MS, UR RFX ethyl glucuronide Not Detect ed NG/mg _crea t Not Available [facility] ([facility]) [address] [place], [address], 01/16/2025 20:10:53 01/11/20 25 01/16/2025 KIMBERLEY OL BIOMA RKERS , MS, UR RFX ethyl sulfate Not Detect ed NG/mg _crea t Not Available [facility] ([facility]) [address] [place], [address], 01/16/2025 20:10:53 01/11/20 25 01/16/2025 METHA DONE, MS, UR RFX methadone Negati ve Not Available [facility] ([facility]) [address] [place], [address], 01/16/2025 20:10:54 01/11/20 25 01/16/2025 METHA DONE, MS, UR RFX methadone Not Detect ed NG/mg _crea t Not Available [facility] ([facility]) [address] [place] [address], [address], 01/16/2025 20:10:54 01/11/20 25 01/16/2025 METHA DONE, MS, UR RFX EDDP (methadone mtb) Not Detect ed NG/mg _crea t Not Available [facility] ([facility]) [address] [facility], [place], [address], 01/16/2025 20:10:54 01/11/20 25 01/16/2025 PHENC YCLID INE, MS, UR RFX other hallucinogen s Negati ve Not Available [facility] ([facility]) [address] [facility], [place], [address], 01/16/2025 20:10:54 01/11/20 25 01/16/2025 PHENC YCLID INE, MS, UR RFX phencyclidin e Not Detect ed Not Available [facility] ([facility]) [address] [facility], [place], [address], 01/16/2025 20:10:54 01/11/20 25 01/16/2025 GABAP ENTIN , MS, UR RFX anticonvulsa nts Negati ve Not Available [facility] ([facility]) [address] [facility], [place], [address], 01/16/2025 20:10:55 01/11/20 25 01/16/2025 GABAP ENTIN , MS, UR RFX gabapentin Not Detect ed Not Available [facility] ([facility]) [address] [facility], [place], [address], 01/16/2025 20:10:55 01/11/2001/16/2025 ACETA MINOP HEN, MS, UR RFX analgesics/n saids +POSIT ANTHONY+ Not Available [facility] ([facility]) [address] [facility], [place], [address], 01/16/2025 20:10:55 01/11/20 25 01/16/2025 ACETA MINOP HEN, MS, UR RFX acetaminophe n PRESEN T Not Available [facility] ([facility]) [address] [facility], [place], [address], 01/16/2025 20:10:55 01/11/20 25 01/10/2025 micro album in/cr eatin ine, mass ratio , urine Microalbumin 150mg/ L Not Available [address] , [place], [address], 01/10/2025 11:42:27 01/11/20 25 01/10/2025 micro album in/cr eatin ine, mass ratio , urine Creatinine 300mg/ dL Not Available [address] , [place], [address], 01/10/2025 11:42:27 01/11/20 25 01/10/2025 micro album in/cr eatin ine, mass ratio , urine Ratio 30-300 mg/g Not Available [address] , [place], [address], 01/10/2025 11:42:27 03/15/19 25 02/03/2024 nucle ar stres s test No observ ation record ed. [facility] [address], [place], [address], 03/15/2024 11:39:51 03/16/19 25 01/19/2024 trans -thor acic echoc ardio gram (TTE) (PROC ) No observ ation record ed. [facility] [address], [place], [address], 03/16/2024 15:19:36 Result Notes None recorded. Problems Name Problem SNOMED Code Status Onset Date Resolution Date Notes Provider Name and Address Organization Details Recorded Time History of cardiac catheter ization 78719556691 100 Active Not Available [facility] 3 10:30:55 Degenera tion of lumbosac ral interver tebral disc 79189788 Active 2016 Not Available [facility] 3 10:30:55 Type 2 diabetes mellitus 39158485 Completed 201604/01/2016 Removal Reason: resolved Frank Seth MD [address], [place], [address] , [place] - [facility] 3 16:05:55 Gastroes ophageal reflux disease without esophagi tis 020056274 Active 2016 Not Available [facility] 3 10:30:55 Hyperlip idemia 33180170 Completed 201604/01/2016 Removal Reason: resolved Frank Seth MD [address], [place], [address] , [place] - [facility] 1 13:34:08 [facility] hyperten diamond 49200584 Completed 201604/01/2016 Removal Reason: resolved Frank Seth MD [address], [place], [place], [address] , [place] - [facility] 7 09:29:58 Obesity 351032494 Active 2016 Not Available [facility] 3 10:30:55 Osteoart hritis 844864540 Active 2016 Not Available [facility] 3 10:30:55 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 56078060 Completed 201604/01/2016 Removal Reason: resolved Frank Seth MD [address], [place], [place], [address] , [place] - [facility] 7 09:29:42 Sleep apnea 08243445 Active 2019 Not Available [facility] 3 10:30:55 Exposure to SARS-CoV -2 Active 2020 Not Available [facility] 3 10:30:55 Testoste candida level below referenc e range 083891741 Active 2020 Not Available [facility] 3 10:30:55 Hyperlip idemia 87981274 Active 2020 Not Available [facility] 3 10:30:55 History of coronary artery bypass grafting 608964274 Active 2021 Not Available [facility] 3 10:30:55 Contract ure of neck of urinary bladder 67247918461 103 Active 2021 Not Available [facility] 3 10:30:55 Coronary arterios clerosis 17149062 Active 2021 Not Available [facility] 3 10:30:55 Memory impairme nt 326423009 Active 2021 Not Available [facility] 3 10:30:55 Prediabe laron 054115593 Active 2022 Alayna Meneses APRN [address], [place], [address] , [facility] - [facility] 3 10:22:30 Hypotest osteroni sm 89468738375 04 Active 2024 Frank Seth MD [address], [place], [address] , [facility] - [facility] 5 09:14:18 Atrial fibrilla tion 40470597 Active 2024 Frank Seth MD [address], [place], [address] , [facility] - [facility] 5 09:17:07 Problem Notes None recorded. Procedures Surgical History Date Name Laterality Status Provider Name and Address Organization Details Recorded Time 04/25/19 25 Pacemaker Placement completed Delphine Adams [place] - [facility] 06/20/2024 11:00:32 11/16/19 24 Advance Care Planning completed Karla Sheng [facility] 11/16/2023 14:16:22 11/16/19 24 Functional Status Assessed completed Karla Patricio [facility] 11/16/2023 14:16:22 04/25/19 24 Shoulder joint surgery completed Delphine Adams [facility] 05/03/2023 10:32:15 08/27/19 22 Advance Care Planning completed Griselda Morris RN [address], [place], [address], [facility] - [facility] 08/17/2021 15:16:24 08/27/19 22 Functional Status Assessed completed Griselda Morris RN [address], [place], [address], [facility] - [facility] 08/17/2021 15:07:44 05/15/19 22 Medication Reconcilliation completed Karla Patricio [facility] 05/14/2021 13:42:09 05/02/19 22 coronary artery bypass graft completed Karla Patricio [place] - [facility] 05/14/2021 13:49:40 08/23/19 21 Advance Care Planning completed Karla Patricio [place] - [facility] 08/22/2020 09:54:04 08/23/19 21 Functional Status Assessed completed Karla Patricio [place] - [facility] 08/22/2020 09:54:04 02/26/20 20 Colonoscopy completed Griselda Morris RN [address], [place], [address], [place] - [facility] 06/23/2020 15:07:33 01/09/20 20 Diastolic B/P 80-89 mm Hg completed Karla Patricio [place] - [facility] 01/09/2020 13:18:34 01/09/20 20 Systolic B/P 130-139 mm Hg completed Karla Patricio [place] - [facility] 01/09/2020 13:18:28 01/09/20 20 Excision Benign Lesion completed Frank Seth MD [address], [place], [address], [place] - [facility] 01/09/2020 13:46:29 11/22/19 20 Diastolic B/P greater than or equal to 90 mm Hg completed Karla Patricio [place] - [facility] 11/22/2019 14:18:58 11/22/19 20 Systolic B/P greater than or equal to 140 mm Hg completed Karla Hay [place] - [facility] 11/22/2019 14:18:53 04/12/19 20 Cerumen Removal completed Frank Seth MD [address], [place], [address], [place] - [facility] 04/12/2019 13:27:25 04/12/19 20 Diastolic B/P greater than or equal to 90 mm Hg completed Karla Patricio [place] - [facility] 04/12/2019 13:00:14 04/12/19 20 Systolic B/P 130-139 mm Hg completed Karla aPtricio [place] - [facility] 04/12/2019 13:00:03 Ankle arthroscopy/surgery completed Karla Patricio [place] - [facility] 04/01/2016 09:15:25 Gastric Bypass completed Karla Patricio [place] - [facility] 04/01/2016 09:05:01 Hip Replacement completed Karla ASHLEY - [facility] 04/01/2016 09:05:16 Knee Surgery completed Karla Oseguera [facility] 04/01/2016 09:05:49 Unlisted px femur/knee completed Karla Oseguera [facility] 04/01/2016 09:06:06 Imaging Results None recorded. Procedure Notes None recorded. Medical Equipment None Reported. Allergies Allergen ID Allergen Name Allergen Category Reaction Reaction Severity Criticality Documentation Date Start Date Code Code System Note Provider Name and Address Organization Details Recorded Time 433780 adhesive tape environme nt,medica tion Not available Not available Not available 05/14/2021 [place] [facility] 2 13:43:52 897503 latex environme nt,medica tion Not available Not available Not available 06/02/20222022 46877 91 RxNorm [place] - [facility] 3 10:32:45 552193 Latex (substanc e) environme nt,medica tion rash Not available [facility] 02/13/20252022 00565 8007 SNOMED Not Available [place] - External Data Service - prod 5 13:54:33 53540 Product containin g penicilli n (product) medicatio n Not available Not available Not available 12/05/20152007 36322 8001 SNOMED Not Available [facility] 6 09:55:42 Medications Name Sig Start Date [...] nued on: 05/07/19 12 10:46AM; User: grisel ruizEst. Completi on: 06/22/19 12;Print ed: 12/25/19 11 [...] Disconti nued on: 11/21/19 11 4:25PM;U ser: haym;Est . Completi on: 12/17/19 11 Not Available [...] Disconti nued on: 01/28/20 15 1:00PM;U ser: wendi;Est . Completi on: 01/23/20 14 Not Available Not Available Not Available Gege 180 mg tablet take 1 tablet (180 mg) by oral route once daily for 30 days 11/30 completed Gege 180 mg oral tablet;R ecorded Status: Recorded on: 06/09/19 12 4:55PM;D iscontin ued Status: Disconti nued on: 12/01/19 12 1:54PM;U ser: grossert ;Est. Completi on: 12/06/19 12;Indic ation: Allergic Rhinitis - (3179 );Prin marlene: 06/09/19 12 Not Available Not Available [...] Available Not Available Nasonex 50 mcg/actua tion Seltzer 1 sniff bilat bid 01/27 completed Nasonex [...] Disconti nued on: 05/07/19 12 10:46AM; User: [email or web address] r;Est. Completi on: 06/22/19 12;Print ed: 12/25/19 [...] Cymbalta 60 mg oral capsule, delayed release( /JULIEN);c omment: Recommen ded by gastric bypass surgeon; [...] Disconti nued on: 01/28/20 15 1:00PM;U ser: wendi;Est . Completi on: 11/15/19 14 Not Available [...] height Body mass index (BMI) Body weight Body temperature Heart rate Oxygen saturation Respiratory rate Pain severity - 0-10 verbal numeric rating [Score] - Reported Systolic And Diastolic Provider Name and Address Organization Details Last Updated DateTime 5 193.04 cm 34.9 kg/m2 797311. 01 g 98.6 [degF] 54 /min 98 % 18 /min 0 120/70 mm[Hg] Karla Patricio [place] - [facility] 5 08:52:09 Date Recorded Body height Body mass index (BMI) Body weight Heart rate Oxygen saturation Respiratory rate Pain severity - 0-10 verbal numeric rating [Score] - Reported Systolic And Diastolic Provider Name and Address Organization Details Last Updated DateTime 5 193.04 cm 33.5 kg/m2 752226. 9 g 68 /min 98 % 16 /min 0 122/64 mm[Hg] Delphine Adams [facility] 5 10:59:56 Date Recorded Body height Body mass index (BMI) Body weight Heart rate Oxygen saturation Respiratory rate Pain severity - 0-10 verbal numeric rating [Score] - Reported Systolic And Diastolic Provider Name and Address Organization Details Last Updated DateTime 5 193.04 cm 33.7 kg/m2 073429. 09 g 64 /min 98 % 18 /min 0 130/80 mm[Hg] Karla Patricio [facility] 5 08:42:08 Date Recorded Body height Body mass index (BMI) Body weight Heart rate Oxygen saturation Respiratory rate Pain severity - 0-10 verbal numeric rating [Score] - Reported Systolic And Diastolic Provider Name and Address Organization Details Last Updated DateTime 5 193.04 cm 34.4 kg/m2 300737. 64 g 70 /min 97 % 16 /min 0 132/74 mm[Hg] Delphine Adams [facility] 5 11:34:47 Date Recorded Body height Body mass index (BMI) Body weight Heart rate Oxygen saturation Respiratory rate Pain severity - 0-10 verbal numeric rating [Score] - Reported Systolic And Diastolic Provider Name and Address Organization Details Last Updated DateTime 5 193.04 cm 34.7 kg/m2 021224. 83 g 80 /min 98 % 18 /min 0 134/80 mm[Hg] Karla ASHLEY [facility] 5 14:01:44 Social History Question Answer Notes LastModified by Organizat ion Details LastModified Time Tobacco Smoking Status Former Smoker Karla spears [facility] 04/01/2016 09:03:14 Able To Swim? Yes Information [...] Or The Highest Degree You Have Received? [id number] Information not available 10/16/2020 Swimming/diving Yes Informati [...] anxious, or unable to sleep at night)? [id number] Information not available 10/16/2020 Do you have [...] colitis N Cerebrovascular Disease N Depression N Guillain-Carencro N Sleep Apnea N Aneurysm N Bronchitis N Heart Disease N Suicidal Ideation N Pre-Eclampsia N Hypertension Y Osteoporosis N Immunizations Vaccine Type Date Status Note Provider Nam e and Address Organization Details Recorded Time COVID-19, mRNA, LNP-S, PF, 100 mcg/0.5mL dose or 50 mcg/0.25mL dose 2 completed Not Available [facility] 02/13/2025 13:54:57 COVID-19, mRNA, LNP-S, bivalent, PF, 50 mcg/0.5 mL or 25mcg/0.25 mL dose 2 completed Not Available [facility] 02/13/2025 13:54:57 Pneumococcal conjugate PCV20, polysaccharide [id number] conjugate, adjuvant, PF 2 completed Not Available [facility] 02/13/2025 13:54:57 Influenza, split virus, quadrivalent, PF 2 completed Not Available [facility] 02/13/2025 13:54:57 Influenza, high-dose, quadrivalent, PF 3 completed Not Available [facility] 02/13/2025 13:54:57 COVID-19, mRNA, LNP-S, PF, 50 mcg/0.5 mL 3 completed Not Available [facility] 02/13/2025 13:54:57 Influenza, high-dose, quadrivalent, PF 3 completed Not Available [facility] 02/13/2025 13:54:57 Influenza, high-dose, trivalent, PF 5 completed Not Available [facility] 02/13/2025 13:54:57 Influenza, split virus, quadrivalent, preservative 0 completed Karla Patricio [facility], [place] - [facility] 11/22/2019 14:49:42 Pneumococcal conjugate PCV 13 5 completed Not Available [facility] 06/02/2022 10:30:56 influenza, unspecified formulation 8 completed Not Available [facility] 06/02/2022 10:30:55 influenza, unspecified formulation 0 completed Not Available [facility] 06/02/2022 10:30:55 influenza, unspecified formulation 9 completed Not Available [facility] 06/02/2022 10:30:55 influenza, unspecified formulation 1 completed Not Available [facility] 06/02/2022 10:30:55 influenza, unspecified formulation 2 completed Not Available [facility] 06/02/2022 10:30:55 Tdap 2 completed Not Available [facility] 06/02/2022 10:30:56 zoster live 1 completed Not Available [facility] 06/02/2022 10:30:56 Novel [id number], all formulations 0 completed Not Available [facility] 06/02/2022 10:30:56 pneumococcal polysaccharide PPV23 2 completed Not Available [facility] 06/02/2022 10:30:55 Tdap 7 completed Not Available [facility] 06/02/2022 10:30:55 Influenza, split virus, quadrivalent, preservative 7 completed Not Available [facility] 06/02/2022 10:30:55 Influenza, split virus, quadrivalent, preservative 9 completed Not Available [facility] 06/02/2022 10:30:55 SARS-COV-2 (COVID-19) vaccine, UNSPECIFIED 1 completed Not Available [facility] 06/02/2022 10:30:55 SARS-COV-2 (COVID-19) vaccine, UNSPECIFIED 1 completed Not Available [facility] 06/02/2022 10:30:55 SARS-COV-2 (COVID-19) vaccine, UNSPECIFIED 1 completed Not Available [facility] 06/02/2022 10:30:55 zoster, unspecified formulation 1 completed Not Available [facility] 06/02/2022 10:30:55 zoster, unspecified formulation 1 completed Not Available [facility] 06/02/2022 10:30:55 influenza, unspecified formulation 4 completed [place] [facility] 11/16/2023 14:23:05 Pneumococcal conjugate PCV20, polysaccharide [id number] conjugate, adjuvant, PF 4 completed [place] - [facility] 11/16/2023 14:23:27 Past Encounters Encounter ID Performer Location Encounter Start Date Encounter Closed Date Diagnosis/Indication Diagnosis SNOMED-CT Code Diagnosis ICD10 Code Diagnosis IMO Codes Diagnosis Note [id number] Frank Seth MD [address] [place] [address] 04/01/2016 08:42:06 04/01/2016 10:17:31 Osteoarthritis 393775446 M19.90 Obesity 863670548 E66.9 Gastroesop hageal reflux disease without esophagitis 890540549 K21.9 Degenerati on of lumbosacral intervertebral disc 01330066 M51.37 Adult heal th examination 140322702 Z00.00 [id number] Frank Seth MD [address] [place] [address] 10/28/2016 08:10:11 10/28/2016 09:07:01 Osteoarthritis 636485556 M19.90 Obesity 175559150 E66.9 Gastroesop hageal reflux disease without esophagitis 439264265 K21.9 Degenerati on of lumbosacral intervertebral disc 26770814 M51.37 Eczema 82783692 L30.9 Body mass index 30+ - obesity 878349230 Z68.37 Adult heal th examination 486418960 Z00.00 [id number] Frank Seth MD [address] [place] [address] 12/23/2016 11:02:37 12/23/2016 11:30:50 Osteoarthritis of ankle and/or foot 50574466 M19.079 Body mass index 30+ - obesity 042956423 Z68.32 [id number] Frank Seth MD [address] [place] [address] 04/01/2017 08:44:52 04/01/2017 09:52:53 Osteoarthritis 533156077 M19.90 Obesity 021539168 E66.9 Degenerati on of lumbosacral intervertebral disc 68813051 M51.37 Adult heal th examination 593276633 Z00.00 Acute bronchitis 7223362 2 J20.9 Eczema 84466705 L30.9 Body mass index 30+ - obesity 391920253 Z68.33 [id number] Frank Seth MD [address] [place] [address] 09/30/2017 08:57:02 09/30/2017 09:24:52 Osteoarthritis 598504597 M19.90 Obesity 829017725 E66.9 Gastroesop hageal reflux disease without esophagitis 566666556 K21.9 Degenerati on of lumbosacral intervertebral disc 82056563 M51.37 Body mass index 30+ - obesity 977984638 Z68.35 [id number] Frank Seth MD [address] [place] [address] 03/31/2018 08:31:00 03/31/2018 09:27:52 Body mass index 30+ - obesity 151559212 Z68.35 Osteoarthritis 671453958 M19.90 Gastroesop hageal reflux disease without esophagitis 977915940 K21.9 Degenerati on of lumbosacral intervertebral disc 07303737 M51.37 Screening for malignant neoplasm of prostate 144288773 Z12.5 Primary er ectile dysfunction 217447980 N52.9 Eczema 59601683 L30.9 [id number] Frank Seth MD [address] 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 [address] 09/29/2018 08:15:08 09/29/2018 09:55:07 Osteoarthritis 483433566 M19.90 Obesity 931057407 E66.9 Gastroesop hageal reflux disease without esophagitis 600266449 K21.9 Degenerati on of lumbosacral intervertebral disc 49360681 M51.37 Primary er ectile dysfunction 877734314 N52.9 Body mass index 30+ - obesity 418341476 Z68.35 [id number] Frank Seth MD [address] [place] [address] 04/12/2019 12:30:46 04/12/2019 13:33:29 Osteoarthritis 239868087 M19.90 Obesity 779748688 E66.9 Gastroesop hageal reflux disease without esophagitis 414142648 K21.9 Degenerati on of lumbosacral intervertebral disc 45060292 M51.37 Pre-surger y evaluation 901193767 Z01.818 Body mass index 30+ - obesity 756620940 Z68.36 Impacted c erumen in right ear 0733865534 218707 H61.21 Primary er ectile dysfunction 758010384 N52.9 [id number] Frank Seth MD [address] [place] [address] 11/22/2019 13:52:35 11/22/2019 14:58:45 Osteoarthritis 984256154 M19.90 Gastroesop hageal reflux disease without esophagitis 977528626 K21.9 Obesity 847689949 E66.9 Degenerati on of lumbosacral intervertebral disc 67498915 M51.37 Administra tion of influenza vaccine 65942916 Z23 Screening for malignant neoplasm of colon 868448876 Z12.11 Body mass index 30+ - obesity 184267469 Z68.39 [id number] Frank Seth MD [address] [place] [address] 01/09/2020 13:00:04 01/09/2020 13:46:19 Obesity 485526994 E66.9 Pigmented skin lesion of uncertain nature 449736650 L81.9 Body mass index 30+ - obesity 346171616 Z68.39 [id number] Aminata Olivas APRN [address] [place] [address] 03/03/2020 10:07:21 03/03/2020 11:50:12 Exposure to SARS-CoV-2 891494949 Z20.740 [id number] Frank Seth MD [address] [place] [address] 05/23/2020 09:24:12 05/23/2020 10:10:10 Sleep apnea 33256474 G47.30 controlled Osteoarthritis 234150116 M19.90 controlled Obesity 615496478 E66.9 Gastroesop hageal reflux disease without esophagitis 686710240 K21.9 Degenerati on of lumbosacral intervertebral disc 73367682 M51.37 controlled Prediabetes 278006657 R7 3.03 Fatigue 26321861 R53.83 new Body mass index 30+ - obesity 406526606 Z68.39 [id number] Alayna Meneses APRN [address] [place] [address] 06/02/2020 14:04:03 06/02/2020 14:42:29 Long-term drug therapy 220192686 Z79.899 Testostero ne level below reference range 851540489 R79.89 Discussed that I need 2 consecutiv e low testostero ne levels in order to start injections ; he will have a second testostero ne level drawn tomorrow AM that is fasting to confirm. Will go ahead and get controlled substance agreement and drug screen today. Discussed that if I get result back before his appt. on , I will go ahead and send the script to pharmacy for him to roll picker and bring with him and he can get the shot on . [id number] Frank Seth MD [address] [place] [address] 06/05/2020 13:04:20 06/05/2020 14:07:11 Obesity 337572092 E66.9 Type 2 reji betes mellitus 32503959 E11.9 Hyperlipidemia 75176028 E78.5 Body mass index 30+ - obesity 919644239 Z68.39 [id number] Alayna Meneses CRIBBER [address] [place] [address] 06/09/2020 13:56:41 06/09/2020 14:12:08 Testosterone level below reference range 772020663 R79.89 Discussed that I need 2 consecutiv e low testostero ne levels in order to start injections ; he will have a second testostero ne level drawn tomorrow AM that is fasting to confirm. Will go ahead and get controlled substance agreement and drug screen today. Discussed that if I get result back before his appt. on , I will go ahead and send the script to pharmacy for him to roll picker and bring with him and he can get the shot on . [id number] Josiane Andre CRIBBER [address] [place] [address] 06/23/2020 09:26:44 06/23/2020 09:53:57 Testosterone level below reference range 588587714 R79.89 [id number] Alayna Meneses APRN [address] [place] [address] 07/08/2020 10:50:29 07/08/2020 11:24:32 Testosterone level below reference range 083526680 R79.89 Discussed that I need 2 consecutiv e low testostero ne levels in order to start injections ; he will have a second testostero ne level drawn tomorrow AM that is fasting to confirm. Will go ahead and get controlled substance agreement and drug screen today. Discussed that if I get result back before his appt. on , I will go ahead and send the script to pharmacy for him to roll picker and bring with him and he can get the shot on . [id number] Alayna Meneses APRN [address] [place] [address] 07/21/2020 10:24:13 07/21/2020 11:30:30 Testosterone level below reference range 091890635 R79.89 Discussed that I need 2 consecutiv e low testostero ne levels in order to start injections ; he will have a second testostero ne level drawn tomorrow AM that is fasting to confirm. Will go ahead and get controlled substance agreement and drug screen today. Discussed that if I get result back before his appt. on , I will go ahead and send the script to pharmacy for him to roll picker and bring with him and he can get the shot on . [id number] Alayna Meneses APRN [address] [place] [address] 08/06/2020 10:38:15 08/06/2020 10:58:13 Testosterone level below reference range 865334044 R79.89 Discussed that I need 2 consecutiv e low testostero ne levels in order to start injections ; he will have a second testostero ne level drawn tomorrow AM that is fasting to confirm. Will go ahead and get controlled substance agreement and drug screen today. Discussed that if I get result back before his appt. on , I will go ahead and send the script to pharmacy for him to roll picker and bring with him and he can get the shot on . [id number] Alayna Meneses APRN [address] [place] [address] 08/19/2020 11:55:33 08/19/2020 12:59:38 Testosterone level below reference range 488681859 R79.89 Discussed that I need 2 consecutiv e low testostero ne levels in order to start injections ; he will have a second testostero ne level drawn tomorrow AM that is fasting to confirm. Will go ahead and get controlled substance agreement and drug screen today. Discussed that if I get result back before his appt. on , I will go ahead and send the script to pharmacy for him to roll picker and bring with him and he can get the shot on . [id number] Frank Seth MD [address] [place] [address] 08/22/2020 09:38:10 08/22/2020 10:38:42 Adult health examination 576787820 Z00.00 Depression screening 171 883596 Z13.89 Examinatio n of blood pressure 835663094 Z01.30 Diet education 93441391 Z71.3 Counseling 028925950 Z71 .82 Exercise counseling . Patient encouraged to exercise 30 minutes 5 days a week. At [facility] risk for falls 270171427 Z91.81 STEADI FAST screening score of __1___. Advance care planning 71 2254586 Z71.89 Testostero ne level below reference range 171981459 R79.89 Degenerati on of lumbosacral intervertebral disc 76201908 M51.37 controlled Gastroesop hageal reflux disease without esophagitis 335689498 K21.9 controlled Hyperlipidemia 47660900 E78.5 controlled Obesity 570949843 E66.9 Osteoarthritis 506389595 M19.90 controlled Sleep apnea 76065886 G47 .30 controlled Type 2 reji betes mellitus 59894556 E11.9 controlled Body mass index 30+ - obesity 296797637 Z68.39 Hepatitis C screening 41 7482998 Z11.59 HIV screening 242238890 Z11.4 Screening for malignant neoplasm of prostate 150573099 Z12.5 [id number] Lizbeth Lomax MD [address] [place] [address] 09/05/2020 11:49:44 09/05/2020 12:04:36 Testosterone level below reference range 192492574 R79.89 [id number] Alayna Meneses APRN [address] [place] [address] 09/19/2020 12:28:36 09/19/2020 13:13:00 Testosterone level below reference range 362631247 R79.89 Discussed that I need 2 consecutiv e low testostero ne levels in order to start injections ; he will have a second testostero ne level drawn tomorrow AM that is fasting to confirm. Will go ahead and get controlled substance agreement and drug screen today. Discussed that if I get result back before his appt. on , I will go ahead and send the script to pharmacy for him to roll picker and bring with him and he can get the shot on . [id number] Alayna Meneses APRN [address] [place] [address] 10/06/2020 10:24:53 10/06/2020 12:06:58 Testosterone level below reference range 245759210 R79.89 Discussed that I need 2 consecutiv e low testostero ne levels in order to start injections ; he will have a second testostero ne level drawn tomorrow AM that is fasting to confirm. Will go ahead and get controlled substance agreement and drug screen today. Discussed that if I get result back before his appt. on , I will go ahead and send the script to pharmacy for him to roll picker and bring with him and he can get the shot on . [id number] Frank Seth MD [address] [place] [address] 10/16/2020 11:05:54 10/16/2020 11:44:59 Obesity 853175418 E66.9 Pain in right foot 50007 92202 51428 M79.671 Body mass index 40+ - severely obese 146435588 Z68.41 [id number] Alayna Meneses APRN [address] [place] [address] 10/20/2020 10:23:39 10/20/2020 10:46:44 Testosterone level below reference range 286964750 R79.89 Discussed that I need 2 consecutiv e low testostero ne levels in order to start injections ; he will have a second testostero ne level drawn tomorrow AM that is fasting to confirm. Will go ahead and get controlled substance agreement and drug screen today. Discussed that if I get result back before his appt. on , I will go ahead and send the script to pharmacy for him to roll picker and bring with him and he can get the shot on . [id number] Radha Rivera MD [address] [place] [address] 11/04/2020 10:55:28 11/04/2020 12:24:57 Testosterone level below reference range 132571757 R79.89 [id number] Alayna Meneses APRN [address] [place] [address] 11/17/2020 09:32:37 11/17/2020 10:29:41 Testosterone level below reference range 421574968 R79.89 Discussed that I need 2 consecutiv e low testostero ne levels in order to start injections ; he will have a second testostero ne level drawn tomorrow AM that is fasting to confirm. Will go ahead and get controlled substance agreement and drug screen today. Discussed that if I get result back before his appt. on , I will go ahead and send the script to pharmacy for him to roll picker and bring with him and he can get the shot on . [id number] Alayna Meneses APRN [address] [place] [address] 12/01/2020 10:44:41 12/01/2020 17:07:27 Testosterone level below reference range 878064880 R79.89 Discussed that I need 2 consecutiv e low testostero ne levels in order to start injections ; he will have a second testostero ne level drawn tomorrow AM that is fasting to confirm. Will go ahead and get controlled substance agreement and drug screen today. Discussed that if I get result back before his appt. on , I will go ahead and send the script to pharmacy for him to roll picker and bring with him and he can get the shot on . [id number] Frank Seth MD [address] [place] [address] 12/05/2020 14:53:04 12/05/2020 15:33:36 Obesity 922977098 E66.9 Pain of right heel 25543 99964 445239 M79.671 Infection of tooth 47831 8007 K04.7 Body mass index 40+ - severely obese 114439481 Z68.41 [id number] Lizbeth Lomax MD [address] [place] [address] 12/15/2020 14:00:09 12/15/2020 17:42:29 Testosterone level below reference range 702531463 R79.89 [id number] Josiane Andre CRIBBER [address] [place] [address] 12/29/2020 09:58:12 12/29/2020 10:29:32 Testosterone level below reference range 629813319 R79.89 [id number] Josiane Andre CRIBBER [address] [place] [address] 01/12/2021 13:17:29 01/12/2021 14:08:34 Testosterone level below reference range 431482642 R79.89 [id number] Alayna Meneses CRIBBER [address] [place] [address] 01/26/2021 12:17:53 01/26/2021 13:03:54 Testosterone level below reference range 580248834 R79.89 Discussed that I need 2 consecutiv e low testostero ne levels in order to start injections ; he will have a second testostero ne level drawn tomorrow AM that is fasting to confirm. Will go ahead and get controlled substance agreement and drug screen today. Discussed that if I get result back before his appt. on , I will go ahead and send the script to pharmacy for him to roll picker and bring with him and he can get the shot on . [id number] Alayna Meneses APRN [address] [place] [address] 02/09/2021 11:49:52 02/09/2021 13:50:35 Testosterone level below reference range 295504455 R79.89 Discussed that I need 2 consecutiv e low testostero ne levels in order to start injections ; he will have a second testostero ne level drawn tomorrow AM that is fasting to confirm. Will go ahead and get controlled substance agreement and drug screen today. Discussed that if I get result back before his appt. on , I will go ahead and send the script to pharmacy for him to roll picker and bring with him and he can get the shot on . [id number] Lizbeth Lomax MD [address] [place] [address] 02/23/2021 10:39:01 02/23/2021 11:45:02 Testosterone level below reference range 626712857 R79.89 [id number] Alayna Meneses APRN [address] [place] [address] 03/09/2021 13:31:28 03/09/2021 14:24:00 Testosterone level below reference range 628631967 R79.89 Discussed that I need 2 consecutiv e low testostero ne levels in order to start injections ; he will have a second testostero ne level drawn tomorrow AM that is fasting to confirm. Will go ahead and get controlled substance agreement and drug screen today. Discussed that if I get result back before his appt. on , I will go ahead and send the script to pharmacy for him to roll picker and bring with him and he can get the shot on . [id number] Alayna Zaira, CRIBBER [address] [place] [address] 03/23/2021 10:23:44 03/23/2021 11:13:58 Testosterone level below reference range 533535062 R79.89 Discussed that I need 2 consecutiv e low testostero ne levels in order to start injections ; he will have a second testostero ne level drawn tomorrow AM that is fasting to confirm. Will go ahead and get controlled substance agreement and drug screen today. Discussed that if I get result back before his appt. on , I will go ahead and send the script to pharmacy for him to roll picker and bring with him and he can get the shot on . [id number] Lizbeth Lomax MD [address] [place] [address] 04/06/2021 13:20:17 04/06/2021 14:02:05 Testosterone level below reference range 452447928 R79.89 [id number] Alayna Meneses APRN [address] [place] [address] 04/20/2021 12:59:47 04/20/2021 13:34:46 Testosterone level below reference range 526681224 R79.89 Discussed that I need 2 consecutiv e low testostero ne levels in order to start injections ; he will have a second testostero ne level drawn tomorrow AM that is fasting to confirm. Will go ahead and get controlled substance agreement and drug screen today. Discussed that if I get result back before his appt. on , I will go ahead and send the script to pharmacy for him to roll picker and bring with him and he can get the shot on . [id number] Irish Valdes APRN [facility] [address] [place] [address] 05/13/2021 11:12:03 05/13/2021 12:25:04 Body mass index 40+ - severely obese 860339068 Z68.41 40.9 Contractur e of neck of urinary bladder 7775871790 9103 N32.0 History of coronary artery bypass grafting 910871703 Z95.1 [id number] Irish Valdes APRN [facility] [address] [place] [address] 06/24/2021 09:08:41 06/24/2021 10:30:59 Contracture of neck of urinary bladder 1769266417 9103 N32.0 History of coronary artery bypass grafting 370264901 Z95.1 [id number] Frank Seth MD [address] [place] [address] 05/14/2021 13:31:57 05/14/2021 14:49:00 Contracture of neck of urinary bladder 1398989556 9103 N32.0 Testostero ne level below reference range 715939492 R79.89 Degenerati on of lumbosacral intervertebral disc 22530453 M51.37 controlled Gastroesop hageal reflux disease without esophagitis 681778676 K21.9 controlled History of cardiac catheterization 8974293547 9100 Z98.890 History of coronary artery bypass grafting 550620769 Z95.1 Hyperlipidemia 49796077 E78.5 controlled Obesity 777107732 E66.9 Osteoarthritis 116221451 M19.90 Sleep apnea 49024383 G47 .30 controlled Type 2 reji betes mellitus 70110209 E11.9 controlled Coronary arteriosclerosis 18237484 I25.10 Acute hypo xemic respiratory failure 789989711 J96.01 resolved Anemia 756698772 D64.9 Acquired thrombocytopenia 59397885 D69.6 Acute nont raumatic kidney injury 1674814703 93153 N17.9 Edema due to fluid overload 191279843 E87.70 Body mass index 40+ - severely obese 190679387 Z68.41 [id number] Lizbeth Lomax MD [address] [place] [address] 05/19/2021 12:02:52 05/19/2021 12:31:44 Testosterone level below reference range 005001978 R79.89 [id number] Lizbeth Lomax MD [address] [place] [address] 06/02/2021 09:48:01 06/02/2021 11:27:56 Testosterone level below reference range 529347649 R79.89 [id number] Alayna Meneses APRN [address] [place] [address] 06/15/2021 11:12:14 06/15/2021 11:29:54 Testosterone level below reference range 789013259 R79.89 Discussed that I need 2 consecutiv e low testostero ne levels in order to start injections ; he will have a second testostero ne level drawn tomorrow AM that is fasting to confirm. Will go ahead and get controlled substance agreement and drug screen today. Discussed that if I get result back before his appt. on , I will go ahead and send the script to pharmacy for him to roll picker and bring with him and he can get the shot on . [id number] Alayna Meneses APRN [address] [place] [address] 06/29/2021 09:35:49 06/29/2021 10:17:52 Testosterone level below reference range 989705619 R79.89 Discussed that I need 2 consecutiv e low testostero ne levels in order to start injections ; he will have a second testostero ne level drawn tomorrow AM that is fasting to confirm. Will go ahead and get controlled substance agreement and drug screen today. Discussed that if I get result back before his appt. on , I will go ahead and send the script to pharmacy for him to roll picker and bring with him and he can get the shot on . [id number] Alayna Meneses CRIBBER [address] [place] [address] 07/13/2021 10:13:14 07/13/2021 10:38:34 Testosterone level below reference range 627367635 R79.89 Discussed that I need 2 consecutiv e low testostero ne levels in order to start injections ; he will have a second testostero ne level drawn tomorrow AM that is fasting to confirm. Will go ahead and get controlled substance agreement and drug screen today. Discussed that if I get result back before his appt. on , I will go ahead and send the script to pharmacy for him to roll picker and bring with him and he can get the shot on . [id number] Josiane Andre APRN [address] [place] [address] 07/28/2021 11:18:48 07/28/2021 11:45:20 Testosterone level below reference range 621606771 R79.89 [id number] Alayna Meneses APRN [address] [place] [address] 08/11/2021 07:59:36 08/11/2021 08:30:40 Testosterone level below reference range 030274108 R79.89 [id number] Frank Seth MD [address] [place] [address] 08/26/2021 12:16:13 08/26/2021 13:38:19 Adult health examination 219445223 Z00.00 Depression screening 171 515974 Z13.89 Examinatio n of blood pressure 484107585 Z01.30 Diet education 58144445 Z71.3 Counseling 664874806 Z71 .82 Exercise counseling . Patient encouraged to exercise 30 minutes 5 days a week. At [facility] risk for falls 797583745 Z91.81 STEADI FAST screening score of . Advance care planning 71 2365816 Z71.89 Coronary arteriosclerosis 93479864 I25.10 Testostero ne level below reference range 310857925 R79.89 Degenerati on of lumbosacral intervertebral disc 47701176 M51.37 controlled Gastroesop hageal reflux disease without esophagitis 384525848 K21.9 controlled Hyperlipidemia 20901866 E78.5 controlled Osteoarthritis 044417380 M19.90 Sleep apnea 05497729 G47 .30 controlled Type 2 reji betes mellitus 50477011 E11.9 controlled Body mass index 30+ - obesity 032371489 Z68.37 Depressive disorder 3548 9007 F32.A [id number] Alayna Meneses APRN [address] [place] [address] 08/24/2021 12:27:11 08/24/2021 17:35:01 Testosterone level below reference range 382200530 R79.89 Blood gluc ose outside reference range 562357106 R73.09 [id number] Alayna Meneses APRN [address] [place] [address] 09/07/2021 15:52:33 09/07/2021 16:24:36 Testosterone level below reference range 741458170 R79.89 Body mass index 30+ - obesity 204899975 Z68.35 [id number] Alayna Meneses APRN [address] [place] [address] 09/08/2021 13:47:44 09/08/2021 14:12:37 Testosterone level below reference range 765954791 R79.89 [id number] Alayna Meneses APRN [address] [place] [address] 10/06/2021 11:13:23 10/06/2021 11:42:15 Testosterone level below reference range 268769567 R79.89 F/U 1 month. Discussed starting injections at home and proper instructio ns/techniq ue for giving injections . Body mass index 30+ - obesity 301663469 Z68.36 [id number] Alayna Meneses APRN [address] [place] [address] 11/03/2021 11:58:24 11/03/2021 12:36:14 Testosterone level below reference range 145636380 R79.89 Will call with results of labs today. F/U 3 months - patient lives 1 hour away from clinic so has been doing injections at home since last month; plan to continue home injections and F/U 3 months for refills and labs. Long-term drug therapy 481825418 Z79.899 Acute uppe r respiratory infection 64561304 J06.9 F/U PRN if symptoms worsen or no improvemen t Body mass index 30+ - obesity 825425436 Z68.36 Osteoarthritis 362413832 M19.90 Use diclofenac gel PRN [id number] Alayna Meneses APRN [address] [place] [address] 01/25/2022 10:02:07 01/25/2022 10:45:13 Testosterone level below reference range 266561609 R79.89 Will call with results of labs today. F/U 3 months - patient lives 1 hour away from clinic so has been doing injections at home since last month; plan to continue home injections and F/U 3 months for refills and labs. Memory impairment 018855 006 R41.3 Start Aricept until able to see Neuro - discussed results of recent CT and labs which were all normal. F/U 1 month. Discussed possible side effects of medication . Long-term drug therapy 389226370 Z79.829 [id number] Frank Seth MD [address] [place] [address] 02/12/2022 12:19:44 02/12/2022 13:23:26 Memory impairment 937752406 R41.3 Coronary arteriosclerosis 95558758 I25.10 Contractur e of neck of urinary bladder 3492073668 9103 N32.0 Testostero ne level below reference range 013310839 R79.89 History of coronary artery bypass grafting 683167540 Z95.1 Hyperlipidemia 25463562 E78.5 controlled Sleep apnea 01885668 G47 .30 controlled Type 2 reji betes mellitus 67749767 E11.9 controlled Osteoarthritis 434750493 M19.90 Obesity 073981111 E66.9 Gastroesop hageal reflux disease without esophagitis 646989178 K21.9 controlled Degenerati on of lumbosacral intervertebral disc 68250920 M51.37 controlled Depressive disorder 3548 9007 F32.A Insomnia 074024591 G47.0 0 Body mass index 30+ - obesity 785542195 Z68.35 [id number] Alayna Meneses APRN [address] [place] [address] 03/03/2022 11:26:33 03/03/2022 11:56:10 Body mass index 30+ - obesity 960856492 Z68.34 Acute righ t otitis media 805092710 H66.91 F/U PRN if symptoms worsen or no improvemen t [id number] Alayna Meneses APRN [address] [place] [address] 04/26/2022 10:35:55 04/26/2022 11:21:50 Testosterone level below reference range 004417933 R79.89 Will call with results of labs today. F/U 3 months - patient lives 1 hour away from clinic so has been doing injections at home since last month; plan to continue home injections and F/U 3 months for refills and labs. Body mass index 30+ - obesity 493761919 Z68.34 Obesity 631637551 E66.9 Long-term drug therapy 348957655 Z79.653 [id number] Alayna Meneses APRN [address] [place] [address] 07/23/2022 10:22:56 07/23/2022 10:48:51 Testosterone level below reference range 364758856 R79.89 Had labs prior to visit which were normal; Continue testo at current dose; F/U 3 months. Body mass index 30+ - obesity 058264701 Z68.34 Obesity 014342166 E66.9 [id number] Frank Seth MD [address] [place] [address] 08/18/2022 15:45:36 08/18/2022 16:06:39 Memory impairment 524682549 R41.3 Coronary arteriosclerosis 07832518 I25.10 Contractur e of neck of urinary bladder 0401038489 9103 N32.0 Testostero ne level below reference range 739762647 R79.89 History of coronary artery bypass grafting 310850111 Z95.1 Hyperlipidemia 49281981 E78.5 controlled History of cardiac catheterization 3603767995 9100 Z98.890 Sleep apnea 58704300 G47 .30 controlled Type 2 reji betes mellitus 90772208 E11.9 controlled Osteoarthritis 809614542 M19.90 Obesity 016897203 E66.9 Gastroesop hageal reflux disease without esophagitis 786482049 K21.9 controlled Degenerati on of lumbosacral intervertebral disc 13189651 M51.37 controlled Insomnia 019130106 G47.0 0 Body mass index 30+ - obesity 154451395 Z68.37 [id number] Alayna Meneses APRN [address] [place] [address] 10/25/2022 09:12:48 10/25/2022 09:46:07 Testosterone level below reference range 979259096 R79.89 Patient to return for fasting labs on 11/02/22; Continue testo at current dose if results in normal range; F/U 3 months. Body mass index 30+ - obesity 106776310 Z68.38 Obesity 475187713 E66.9 Long-term current use of drug therapy 625606524 Z79.899 Hyperlipidemia 39612557 E78.5 Prediabetes 993113044 R7 3.03 [id number] Alayna Meneses APRN [address] [place] [address] 01/25/2023 09:30:56 01/25/2023 10:00:13 Testosterone level below reference range 332445594 R79.89 Patient to have fasting labs at next visit since not fasting today and will be out of town; Continue testo at current dose if results in normal range; F/U 3 months. Long-term current use of drug therapy 150646078 Z79.899 Body mass index 30+ - obesity 347430819 Z68.38 Obesity 313871559 E66.9 [id number] Frank Seth MD [address] [place] [address] 03/03/2023 12:39:58 03/03/2023 13:37:07 Prediabetes 429665193 R73.03 Hyperlipidemia 23282460 E78.5 controlled Memory impairment 627505 006 R41.3 Osteoarthritis 345182448 M19.90 Insomnia 908696338 G47.0 0 Acute maxi llary sinusitis 74875323 J01.00 Acquired h ammer toe of right foot 8110167972 798920 M20.41 Body mass index 30+ - obesity 214434583 Z68.37 [id number] Frank Seth MD [address] [place] [address] 03/30/2023 10:23:00 03/30/2023 10:42:37 Memory impairment 761670486 R41.3 Osteoarthritis 595192861 M19.90 Depressive disorder 3548 9007 F32.A Body mass index 30+ - obesity 934832409 Z68.37 [id number] Frank Seth MD [address] [place] [address] 04/14/2023 09:40:13 04/14/2023 10:28:59 Contracture of neck of urinary bladder 3050372539 9103 N32.0 Coronary arteriosclerosis 22273689 I25.10 Degenerati on of lumbosacral intervertebral disc 59969646 M51.37 controlled Gastroesop hageal reflux disease without esophagitis 138733797 K21.9 controlled History of coronary artery bypass grafting 319520897 Z95.1 Hyperlipidemia 35541161 E78.5 controlled Memory impairment 129042 006 R41.3 Obesity 609268024 E66.9 Osteoarthritis 400208225 M19.90 Sleep apnea 18718349 G47 .30 controlled Testostero ne level below reference range 692819726 R79.89 Pre-surger y evaluation 455575917 Z01.818 Body mass index 30+ - obesity 546239275 Z68.37 [id number] Alayna Meneses APRN [address] [place] [address] 05/03/2023 10:20:25 05/03/2023 10:45:36 Testosterone level below reference range 518231599 R79.89 Continue testo at current dose if results in normal range; F/U 3 months.P atient to return in 1 week for fasting labs Long-term current use of drug therapy 226381610 Z79.899 Hyperlipidemia 90996741 E78.5 Will call with results Prediabetes 515546577 R7 3.03 Patient to return for fasting labs [id number] Alayna Meneses APRN [address] [place] [address] 08/15/2023 10:24:33 08/15/2023 10:56:29 Testosterone level below reference range 142782312 R79.89 Continue testo at current dose if results in normal range; F/U 3 months.P atient to return for fasting labs (Medicare AWE with PCP on 09/15) Long-term current use of drug therapy 811597588 Z79.899 Body mass index 30+ - obesity 877770247 Z68.37 Obesity 190491990 E66.9 [id number] Alayna Meneses APRN [address] [place] [address] 10/28/2023 11:32:08 10/28/2023 12:31:57 Pre-surgery evaluation 131431018 Z01.818 Cleared for surgery Sleep apnea 30283257 G47 .30 Uses BiPAP nightly currently Testostero ne level below reference range 319717918 R79.89 Continue testo at current dose if results in normal range; F/U 3 months.P atient to return for fasting labs Prediabetes 214641128 R7 3.03 Patient to return for fasting labs Hyperlipidemia 56812330 E78.5 Will call with results [id number] Frank Seth MD [address] [place] [address] 11/16/2023 14:10:38 11/16/2023 15:06:12 Adult health examination 122857869 Z00.00 Depression screening 171 881073 Z13.31 A depression screening was completed via a standardiz ed screening tool. 5 minutes were spent discussing depression screening results and risk factors. Examinatio n of blood pressure 493278572 Z01.30 Diet education 51964449 Z71.3 Counseling 332958239 Z71 .82 Exercise counseling . Patient encouraged to exercise 30 minutes 5 days a week. At [facility] ed risk for falls 639151994 Z91.81 STEADI FAST screening score of __6___. Advance care planning 71 3400820 Z71.89 Memory impairment 050470 006 R41.3 Coronary arteriosclerosis 45585366 I25.10 Prediabetes 402372580 R7 3.03 Contractur e of neck of urinary bladder 9277066222 9103 N32.0 Testostero ne level below reference range 143944655 R79.89 History of coronary artery bypass grafting 259414566 Z95.1 Hyperlipidemia 31842728 E78.5 controlled History of cardiac catheterization 4378526438 9100 Z98.890 Sleep apnea 73345638 G47 .30 controlled Osteoarthritis 351098526 M19.90 Obesity 075948728 E66.9 Gastroesop hageal reflux disease without esophagitis 533961990 K21.9 controlled Degenerati on of lumbosacral intervertebral disc 63468265 M51.37 controlled Pre-surger y evaluation 642908271 Z01.818 Cleared for surgery Acute maxi llary sinusitis 72805191 J01.00 Type 2 reji betes mellitus 58299820 E11.9 controlled Depressive disorder 3548 9007 F32.A Body mass index 30+ - obesity 915301915 Z68.36 [id number] Frank Seth MD [address] [place] [address] 03/21/2024 08:23:04 03/21/2024 09:22:46 Memory impairment 745183127 R41.3 Coronary arteriosclerosis 19205461 I25.10 Degenerati on of lumbosacral intervertebral disc 87001752 M51.379 Gastroesop hageal reflux disease without esophagitis 383094146 K21.9 controlled Obesity 712737665 E66.9 Osteoarthritis 943540282 M19.90 Sleep apnea 25846986 G47 .30 controlled Hyperlipidemia 20846904 E78.5 controlled History of coronary artery bypass grafting 065457402 Z95.1 Type 2 reji betes mellitus 14088304 E11.9 controlled Hypotestosteronism 12347 82220 104 R89.1 Atrial fibrillation 4943 6004 I48.91 Depressive disorder 3548 9007 F32.A Insomnia 666726638 G47.0 0 Body mass index 30+ - obesity 765233579 Z68.34 [id number] Alayna Meneses APRN [address] [place] [address] 06/20/2024 10:46:56 06/20/2024 11:41:41 Preoperative state 70391871 Z01.818 [id number] Cleared for surgery - advised to follow directions regarding date for stopping Eliquis as advised by surgeon Hyperlipidemia 83668251 E78.5 Will call with results Hypotestosteronism 47069 90709 104 R89.1 Prediabetes 367640243 R7 3.03 Will call with results - last A1C 6.6 on 03/21/24 [id number] Frank Seth MD [address] [place] [address] 09/19/2024 08:25:05 09/19/2024 08:58:59 Hypotestosteronism 6398010317 104 R89.1 Memory impairment 065475 006 R41.3 Atrial fibrillation 4943 6004 I48.91 Coronary arteriosclerosis 87917464 I25.10 Hyperlipidemia 89966933 E78.5 controlled Contractur e of neck of urinary bladder 9107749285 9103 N32.0 Degenerati on of lumbosacral intervertebral disc 86631615 M51.379 Gastroesop hageal reflux disease without esophagitis 052675085 K21.9 controlled Obesity 353317414 E66.9 Osteoarthritis 676502572 M19.90 Sleep apnea 36273787 G47 .30 controlled Prediabetes 292070103 R7 3.03 Type 2 reji betes mellitus 79003704 E11.9 controlled Chronic insomnia 6425116 04 F51.04 Depressive disorder 3548 9007 F32.A Body mass index 30+ - obesity 830854952 Z68.33 61121854 [id number] Alayna Meneses APRN [address] [place] [address] 01/10/2025 11:24:04 01/10/2025 11:55:47 Testosterone level below reference range 568427589 R79.89 Continue testo at current dose if results in normal range; F/U 3 months.P atient to return for fasting labs Long-term current use of drug therapy 517106980 Z79.425 [id number] Obese class I 7064039831 32635 E66.811 Z68.34 0602942 Hyperlipidemia 86009979 E78.5 Will call with results Prediabetes 119224055 R7 3.03 Will call with results - last A1C 6.7 on 06/20/24 (was previously in prediabete s range) Sleep apnea 24878592 G47 .30 Uses BiPAP nightly currently and benefits from use [id number] Frank Seth MD [address] [place] [address] 02/13/2025 13:54:02 02/13/2025 14:29:52 Hypotestosteronism 0965185045 104 R89.1 Memory impairment 968822 006 R41.3 Atrial fibrillation 4943 6004 I48.91 Coronary arteriosclerosis 40576793 I25.10 Prediabetes 253705843 R7 3.03 Hyperlipidemia 56219252 E78.5 controlled History of coronary artery bypass grafting 768053001 Z95.1 Degenerati on of lumbosacral intervertebral disc 00994926 M51.379 Gastroesop hageal reflux disease without esophagitis 816792847 K21.9 controlled Obesity 779513376 E66.9 Osteoarthritis 376593263 M19.90 Sleep apnea 43242209 G47 .30 controlled Cramp 07136897 R25.2 48252 Body mass index 30+ - obesity 380682924 Z68.34 [id number] Health Concerns Section Related Observation LastModified by Organization Detai ls LastModified Time None Recorded Concern Status LastModified by Organization Details LastModified Time None Recorded Advance Directives Directive N: Payers Insurance Date Sequence Insurance Name Policy Number Policy Rothman Covered Member ID Rothman Member ID Guarantor Name 03/09/2021 2 [employer] (MEDICARE REPLACEMENT/AD VANTAGE - HMO) James O Sagastume [id number] James O Sagastume 03/30/2017 1 [place]MEDICARE REPLACEMENT REGIONAL PPO) [id number] [place] O Sagastume [id number] James O Sagastume 03/09/2021 1 [place] [id number] [place] O Sagastume [id number] James O Sagastume 02/12/2025 1 [employer] (MEDICARE REPLACEMENT/AD VANTAGE - HMO) [place] O Sagastume [id number] James O Sagastume 03/03/2023 1 [employer] (PPO) [place] O Sagastume [id number] James O Sagastume 03/03/2022 1 [employer] (MEDICARE REPLACEMENT/AD VANTAGE - HMO) [place] O Sagastume [id number] [place] O [place] 02/12/2025 [employer] (MEDICARE REPLACEMENT/AD VANTAGE - PPO) [place] O Sagastume [id number] James O Sagastume 03/11/2022 1 [employer] - [employer]IC[employer]ARE (PPO) [place] O Sagastume [id number] [employer] O Sagastume Notes Date Note Type Note Provider Name and Address Organization Details Recorded Time 03/21/2024 text/html Here for diabetic F/U. Last A1C 8.4 three months ago and started back on metformin. Says BS controlled. Had recent cardioversion for Afib. Still feels a little tired from that. Frank Seth MD [address], [place], [address], [place] [facility] 03/21/2024 09:20:18 06/20/2024 text/html ROS as noted in the HPI James is a 68 year old male who is here for a history and physical for a surgery on 06/29/[address] [facility] for placement of Inspire device to replace a BIPAP. He was instructed to stop the Eliquis on 06/25/24 prior to surgery. He needs a BMP today per pre-operative instructions. No acute complaints today. He is fasting for all other routine labs. Alayna Meneses, ERLINDA [address], [place], [address], [place] [facility] 06/20/2024 11:42:31 09/19/2024 text/html Here for checkup and refills. Feels great. Off eliquis and beta nik per cardiology. BS runs 130-140. Frank Seth MD [address], [place], [address], [place] [facility] 09/19/2024 09:02:21 01/10/2025 text/html ROS as noted in the [...] 01/10/25Controlled Substance Agreement on File: YES Alayna Meneses APRN [address], [place], [address], [place] [facility] 01/10/2025 11:49:57 02/13/2025 text/html C/O leg and hand muscle cramps day and night. 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 Had recent labs and all normal. Frank Seth MD [address], [place], [address], [place] [facility] 02/13/2025 14:29:24
[2025-02-18 18:06] VITALS: BP 189/93; PULSE 81; RESP 16; TEMP 36.6; O2SAT 97; BMI 34.0
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
[2025-02-18] MEDS: ORPHENADRINE CITRATE 60MG/2ML VIAL 30 MG IV (18:49)
[2025-02-18] MEDS: LIDOCAINE 5% TRANSDERMAL PATCH 1 EACH TD (18:49)
[2025-02-18 19:00] LABS: Hematocrit 35.7 % (42.0-52.0); Hemoglobin 12.6 g/dL (14.1-18.0); Immature Granulocytes % 0.2 %; Mean Corpuscular HGB Conc 35.3 g/dL (31.8-35.4); Mean Corpuscular Hemoglobin 30.8 pg (27.0-31.2); Mean Corpuscular Volume 87.3 fl (80-94); Nucleated Red Blood Cells % 0 %; Platelet Count 147 K/mm3 (142-424); Red Blood Count 4.09 M/mm3 (4.60-6.20); Red Cell Distribution Width-SD 39.3 fL; White Blood Count 5.0 K/mm3 (4.8-10.8)
[2025-02-18 19:04] LABS: Alanine Aminotransferase 45 U/L (12-78); Albumin Level 4.6 g/dl (3.5-5.0); Albumin/Globulin Ratio 1.7 (1.1-1.8); Alkaline Phosphatase 126 U/L (38-126); Anion Gap 11.6 mEq/L (5-15); Aspartate Amino Transferase 41 U/L (17-59); Bilirubin,Total 0.6 mg/dl (0.2-1.3); Blood Urea Nitrogen 20 mg/dl (9-20); Calcium 9.0 mg/dl (8.4-10.2); Carbon Dioxide 22 mmol/L (22.0-30.0); Chloride 108 mmol/L (98-107); Creatinine Clearance Estimated 117 mL/min (50-200); Creatinine,Serum 1.10 mg/dl (0.66-1.25); Estimated Glomerular Filt Rate 67 ml/min (>60); GFR (African American) 81 ML/MIN (>60); Globulin 2.7 g/dL (1.3-3.2); Glucose 254 mg/dl (74-100); Potassium 4.6 mmoL/L (3.5-5.1); Sodium 137 mmol/L (136-145); Total Protein,Serum 7.3 g/dl (6.3-8.2)
[2025-02-18 19:59] VITALS: BP 169/103; PULSE 67; RESP 18; TEMP 36.6; O2SAT 97
== END 2025-02-18 20:02 | disposition home or self-care (01) ==
PROVIDERS: Physician Assistant; Emergency Provider Student in an Organized Health Care Education/Training Program; PCP Family Medicine
DX: M54.50 Low back pain, unspecified (principal); V49.40XA Driver injured in collision with unspecified motor vehicles in traffic accident, initial encounter
CPT/HCPCS: 70450; 71045; 72125; 72128; 72131; 72170; 72192; 80053; 85025; 96374; 99285; J2360